=== PATIENT | male | born 1935 | race Caucasian/White ===

== ENCOUNTER 2020-06-06 11:27 | Outpatient (CLI) | payer MEDICARE, SELFPAY ==
--- NOTE | ~2020-06-06 | XR_ITS ---
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 There is degenerative spurring of the lower thoracic spine. There is severe degenerative disc disease on the right at L3-4, severe degenerative disc disease at L4-5 and L5-S1, moderate degenerative disc disease at L1-2 and L2-3, more prominent L2-3 on the right. There is very prominent degenerative change at the apophyseal joints with associated grade 1 anteroli sthesis at L5-S1. No fracture or bone destruction is detected. Fusiform distal abdominal aortic aneurysm. Extensive calcification of the abdominal aorta and iliac a rteries. 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
== END 2020-06-06 11:28 | disposition home or self-care (01) ==
PROVIDERS: PCP Family Medicine; Visit Provider Family Medicine
DX: M54.5 Low back pain (principal)
CPT/HCPCS: 72100

== ENCOUNTER 2020-06-21 09:51 | Outpatient (CLI) | payer MEDICARE, SELFPAY ==
--- NOTE | ~2020-06-21 | US_ITS ---
EXAMINATION: US aorta DATE: 06/21/2020 10:34 INDICATION: Abdominal aortic aneurysm TECHNIQUE: Grayscale, color Doppler, and pulsed Doppler images of the aorta and common iliac arteries were obtained. COMPARISON: None. FINDINGS: The proximal aorta is suboptimally visualized but measures approximately 2.2 cm AP diameter. The mid aorta measures 2.5 cm. The distal aorta measures 3.1 cm. The right common iliac artery measures 1.8. The left common iliac artery measures 1.4 cm. IMPRESSION: 1. Ectatic infrarenal abdominal aorta measuring up to 3.1 cm in maximal diameter. Reviewed, dictated and finalized at location A. IMPRESSION: 1. Ectatic infrarenal abdominal aorta measuring up to 3.1 cm in maximal diamete r.
== END 2020-06-21 09:52 | disposition home or self-care (01) ==
PROVIDERS: PCP Family Medicine; Visit Provider Family Medicine
DX: I71.4 Abdominal aortic aneurysm, without rupture (principal)
CPT/HCPCS: 76775

== ENCOUNTER 2020-06-26 06:59 | Inpatient (IN) | payer MEDICARE, SELFPAY ==
--- NOTE | ~2020-06-26 | CT_ITS ---
EXAMINATION: CT abdomen pelvis w con DATE: 06/26/2020 08:42 INDICATION: Abdominal pain TECHNIQUE: Computed tomography (CT) of the abdomen and pelvis was performed with 100 mL Omnipaque-350 intravenous contrast. Automated exposure control and iterative reconstruction technique were employe d. The dose-length product was 630.11 mGy-cm. COMPARISON: None FINDINGS: Mild bilateral dependent and basilar atelectasis. Cardiomegaly. Atherosclerotic coronary artery calci fications. Aortic valve calcification. Postoperative change of prior median sternotomy and coronary a rtery bypass grafting. Small sliding-type hiatal hernia. Gallbladder is dilated to 5.1 cm with wall thickening and trace amount of pericholecystic fluid consi stent with acute cholecystitis. The common bile duct measures up to 7-8 mm in diameter which is at th e upper limits of normal for age. No intrahepatic biliary ductal dilation. A couple cysts in the left hepatic lobe the larger measuring 3.1 cm. Additional 7 mm low-density lesion in the left hepatic lob e with more irregular margins and favor hemangioma over cyst. Multiple tiny splenic calcified calcification is consistent with old granulomatous disease. Multiple bilateral renal cysts the largest on the right measuring 1.8 cm. There is moderate colonic diverticul osis with a sigmoid predominance. There is no adjacent inflammatory change to suggest diverticulitis . Small bowel and appendix are normal. Bladder is normal. Prostatomegaly measuring 6.1 x 5.2 cm. The re is calcified atherosclerosis of the aorta and many of the other arteries. Ectatic infrarenal abdom inal aorta measuring up to 3.1 cm in maximal diameter. The degree lumbar levoscoliosis with moderate to severe spondylosis. 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 Subacute appearing fracture across the left pedicle of L5. 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 IMPRESSION: 1. Acute cholecystitis with borderline dilation of the common bile duct but without evident obstructi ng stones or mass. 2. Cardiomegaly with coronary artery disease. 3. Small sliding-type hiatal hernia. 4. Diverticulosis. 5. Prostatomegaly. 6. Chronic bilateral L5 pars interarticularis defects with nondisplaced subacute appearing fracture a cross the left pedicle of L5 and with 8 mm retrolisthesis on S1. Reviewed, dictated and finalized at location A. IMPRESSION: 1. Acute cholecystitis with borderline dilation of the common bile duct but wit hout evident obstructing stones or mass. 2. Cardiomegaly with coronary artery disease. 3. Small sliding-type hiatal hernia. 4. Diverticulosis. 5. Prostatomegaly. 6. Chronic bilateral L5 pars interarticularis defects with nondisplaced subacut e appearing fracture across the left pedicle of L5 and with 8 mm retrolisthesis on S1.
--- NOTE | ~2020-06-26 | US_ITS ---
EXAMINATION: US right upper quadrant DATE: 06/27/2020 09:44 INDICATION: Acute cholecystitis. TECHNIQUE: Multiple grayscale and Doppler ultrasound images of the abdomen were obtained. COMPARISON: CT abdomen and pelvis 06/26/2020 FINDINGS: The visualized portions of the head, body, and tail of the pancreas are normal. The liver i s normal without focal lesion. There is normal flow in main portal vein. The gallbladder is distended and contains sludge. No visible gallstones on this ultrasound, but sensitivity is decreased by bowel gas. The prior CT demonstrates a stone in the cystic duct. Gallbladder wall thickening is noted. The re was no sonographic Ruelas sign, but the patient has received pain medications. The common duct is normal and measures 5 mm. IMPRESSION: 1. Acute cholecystitis. Reviewed, dictated and finalized at location A. IMPRESSION: 1. Acute cholecystitis.
[2020-06-26 07:00] VITALS: BP 160/78; PULSE 60; RESP 20; TEMP 36.3; O2SAT 97
--- NOTE | 2020-06-26 07:10 | ECG_ITS ---
Measurements Intervals [place] Rate: 63 P: 48 MD: 188 QRS: -24 QRSD: 105 T: -24 QT: 407 QTc: 418 Interpretive Statements SINUS RHYTHM POSSIBLE LEFT ATRIAL ENLARGEMENT POSSIBLE LEFT VENTRICULAR HYPERTROPHY DELAYED PRECORDIAL R/S TRANSITION BORDERLINE T WAVE ABNORMALITY- INFERIOR LEADS BASELINE ARTIFACT- I, II, AVR, AVF BORDERLINE ECG Electronically Signed On 06-27-2020 7:09:46 CDT by Zia Vega D.O.
[2020-06-26] MEDS: SODIUM CHLORIDE 0.9% IV 1,000 ML 999 ML IV CONT (07:25)
[2020-06-26] MEDS: DICYCLOMINE HCL INJ 20 MG/2 ML VIAL IM (07:25)
[2020-06-26 07:40] LABS: Basophils Absolute Auto 0.04 K/mm3 (0.00-0.10); Basophils Percent Auto 0.4 % (0.0-1.0); Eosinophils Percent Auto 0.9 % (1.0-6.0); Hematocrit 44.3 % (37.0-46.0); Hemoglobin 14.5 g/dL (12.4-15.3); Immature Granulocyte Absolute 0.05 K/mm3 (0.00-0.00); Immature Granulocyte Percent A 0.5 % (0.0-0.0); Lymphocytes Absolute Auto 0.67 K/mm3 (1.10-4.50); Lymphocytes Percent Auto 6.3 % (18.0-42.0); Mean Corpuscular HGB Conc 32.7 g/dL (32.0-36.0); Mean Corpuscular Hemoglobin 30.3 pg (27.0-31.0); Mean Corpuscular Volume 92.7 fL (78.0-102.0); Mean Platelet Volume 8.9 fl (8.7-11.0); Monocytes Percent Auto 10.4 % (2.0-11.0); Neutrophils Absolute Auto 8.6 K/mm3 (1.7-7.2); Neutrophils Percent Auto 81.5 % (50.0-70.0); Platelet Count Result 172 K/mm3 (150-420); Red Blood Count 4.78 M/mm3 (4.70-6.10); Red Cell Distribution Width 12.4 % (11.6-14.4); White Blood Count 10.6 K/mm3 (4.8-10.8)
[2020-06-26 07:53] LABS: Partial Thromboplastin Time 31.5 SEC (22.3-31.6); Prothrombin Time 10.7 Seconds (9.64-11.0)
[2020-06-26 07:59] LABS: Alanine Aminotransferase 22 U/L (16-63); Albumin Level 3.4 g/dL (3.4-5.0); Alkaline Phosphatase 94 U/L (46-116); Anion Gap 10 mmol/L (8-16); Aspartate Amino Transferase 18 U/L (15-37); Bilirubin,Total 0.8 mg/dL (0.00-1.00); Blood Urea Nitrogen 18 mg/dL (7-18); Calcium 8.7 mg/dL (8.5-10.1); Carbon Dioxide 26 mmol/L (21-32); Chloride 101 mmol/L (98-108); Estimated CRCL calculation 44 ml/min; Estimated Glomerular Filt Rate > 60; Glucose 109 mg/dL (70-99); Lipase 64 U/L (73-393); Osmolality Calculated 286 mOsm/kg (285-295); Potassium 3.6 mmol/L (3.5-5.1); Sodium 137 mmol/L (136-145); Total Protein 6.3 g/dL (6.4-8.2)
[2020-06-26 08:01] LABS: Troponin I < 0.02 ng/mL (0.00-0.056)
--- NOTE | 2020-06-26 08:08 | ED.ABDPAIN ---
HPI - Abdominal Pain General Chief Complaint: Abdominal Pain Stated Complaint: 84 YO male w/ 1 day h.o generalizd abd pain, NOT associated w/ N/V/D. Here for eval by private vehicle. Related Data Home Medications Medication Instructions Recorded Confirmed Norvasc 5 mg PO BID 06/26/20 06/26/20 acetaminophen 325 mg BYMOUTH DAILY 06/26/20 06/26/20 atorvastatin 80 mg PO DAILY 06/26/20 06/26/20 clopidogrel 75 mg PO DAILY 06/26/20 06/26/20 irbesartan 300 mg PO DAILY 06/26/20 06/26/20 metoprolol tartrate 50 mg PO BID 06/26/20 06/26/20 nitroglycerin 1 patch TRANSDERMAL DAILY 06/26/20 06/26/20 pantoprazole 40 mg PO DAILY 06/26/20 06/26/20 tamsulosin [Flomax] 0.4 mg PO HS 06/26/20 06/26/20 tramadol 100 mg PO BID 06/26/20 06/26/20 Allergies Allergy/AdvReac Type Severity Reaction Status Date / Time aspirin Allergy Unknown Verified 06/26/20 07:34 Review of Systems Constitutional: Constitutional: Reports as per HPI and Reports no additional constitutional complaints Eyes: Eyes: Reports as per HPI and Reports no additional eye complaints ENT: Reports system reviewed and no additional complaints, except as documented and Reports as per HPI Cardiovascular: Cardiovascular: Reports as per HPI and Reports no additional cardiovascular complaints Respiratory: Respiratory: Reports as per HPI and Reports no additional respiratory complaints Gastrointestinal: Gastrointestinal: Reports as per HPI, Reports abdominal pain, Denies bloating, Denies constipation, Denies heartburn, Denies diarrhea, Denies nausea and Denies vomiting Genitourinary: Genitourinary: Reports no additional male genitourinary complaints and Reports as per HPI Musculoskeletal: Musculoskeletal: Reports no additional musculoskeletal complaints and Reports as per HPI Integumentary/Breasts: Skin/Breast: Reports system reviewed and no additional complaints, except as docu and Reports as per HPI Neurologic: Reports system reviewed and no additional complaints, except as documented and Reports as per HPI Psychiatric: Psychiatric: Reports no additional psychiatric complaints and Reports as per HPI Endocrine: Endocrine: Reports no additional endocrine complaints and Reports as per HPI Hematologic/Lymphatic: Hematologic/Lymphatic: Reports no additional hematologic/lymphatic complaints and Reports as per HPI Allergic/Immunologic: Allergic/Immunologic: Reports no additional allergic/immunologic complaints and Reports as per HPI [facility] Past Medical History Medical History (Updated 06/26/20 @ 09:52 by Jayy Santoyo MD) Aneurysm of infrarenal abdominal aorta BPH (benign prostatic hyperplasia) Diverticulosis GERD (gastroesophageal reflux disease) HLD (hyperlipidemia) HTN (hypertension) Exam Const: General: healthy appearing, no acute distress and alert Orientation/consciousness: patient oriented x3 HENMT: Head: normal to inspection Eyes: Conjunctivae: conjunctivae normal Pupils: Equal, round and reactive pupils present Neck: Neck: normal visual inspection and no lymphadenopathy Chest: Chest palpation & inspection: normal inspection of the chest Resp: Effort & Inspection: normal respiratory effort Auscultation: clear to auscultation bilaterally Cardio: Rate: regular rate Rhythm: regular rhythm GI: Inspection: non-distended GI Palp: Yes Soft to palpation, No Tenderness to palpation present (GI), No Guarding due to palpation present (GI) and No Rigid due to palpation : General: Yes no CVA tenderness Male General Exam: Yes normal external exam Testes: Testes normal Back/Spine/Pelvis: Back: no CVA tenderness Skin: General skin exam: normal color Rashes: no rashes Neuro: General: patient oriented x3, moves all extremities, no meningeal signs, no focal motor deficits and CN's II-XI intact bilaterally Cranial nerves: Yes Nystagmus not present Speech: normal speech Extrem: General: normal to inspection Psych: Appearance: grossly normal Mental Status
[2020-06-26 08:11] LABS: Add Urine Microscopic? YES; Appearance Urine Clear (Clear); Bilirubin Urine Negative (Negative); Blood Urine 1+ (Negative); Color Urine Yellow (Yellow); Glucose Urine UA Negative (Negative); Ketones Urine Negative (Negative); Leukocyte Esterase Ur Negative LEU/UL (Negative); Nitrate Urine Negative (Negative); Protein Urine Negative (Negative); pH Urine 7.5 (5.0-8.0)
[2020-06-26 08:17] LABS: Squamous Epithelial Cell Urine None seen /hpf (Few); WBC Urine None seen /hpf (0-3)
[2020-06-26 08:18] LABS: Bacteria Urine None seen /hpf; Mucus Urine None seen /lpf
[2020-06-26 08:48] LABS: D Dimer 0.64 mg/L (0.19-0.50)
[2020-06-26 09:54] VITALS: BP 161/66; PULSE 97; RESP 20; TEMP 37.1; O2SAT 98
[2020-06-26] MEDS: MORPHINE SULFATE (*CRX) 2 MG/ML INJ IV PUSH (10:10)
[2020-06-26] MEDS: ONDANSETRON INJ 4 MG/2 ML VIAL IV PUSH (10:12)
[2020-06-26 10:25] VITALS: BMI 29.5
[2020-06-26 10:30] VITALS: BP 174/70; PULSE 67; RESP 20; TEMP 36.4; O2SAT 97
--- NOTE | 2020-06-26 10:32 | PC.NURSE ---
1025 updated bedside report to RENATO Santa.
--- NOTE | 2020-06-26 10:37 | PC.NURSE ---
Admitted from ER to 227 for abdominal pain, started 1130pm while on computer, continues to have pain today, did have a BM this am, NPO at this time, oriented to room and call system
--- NOTE | 2020-06-26 11:08 | PC.NURSE ---
Given few ice chips for dry mouth, denies n/v
[2020-06-26] MEDS: ENOXAPARIN 40 MG/0.4 ML SYRINGE SUB-Q (11:28)
[2020-06-26] MEDS: DEXTROSE 5%/0.9% SOD CHL 1,000 ML 100 ML IV CONT ×2 (11:28→22:46)
--- NOTE | 2020-06-26 12:27 | PM.IMHP ---
H&P: HPI History of Present Illness Date/Time: 06/26/20 12:27 Chief complaint: abd pain Narrative: Beau Freeman is a 84 year old male who presented to the ED today with complaints abdominal pain. Patient has a past medical history of aneurysm of the infrarenal abdominal aneurysm, BPH, diverticulitis, GERD, hypertension, hyperlipidemia According to patient approximately 11:00 last night he laid down to go to sleep and noticed that he had abdominal pain. Patient noted that he took some type of medication because he thought he might have had a GI ulcer. He is unsure of the medication he took. He did note that he was unable to sleep overnight due to pain he reports is suggestive of several times with no relief. D-dimer slightly elevated patient not having any respiratory issues, no other testing needed, CT of the abdomen did indicate acute cholecystitis. The patient denies SOB, CP, palpitation, extremity numbness, lightheadedness, dizziness, constipation, diarrhea, chills, or fever. Patient continues to have left upper quadrant discomfort. Review of Systems Review of Systems: All systems reviewed & are unremarkable except as noted in HPI and below (10 point system review) [facility] Past Medical History Medical History (Updated 06/26/20 @ 09:52 by Jayy Santoyo MD) Aneurysm of infrarenal abdominal aorta BPH (benign prostatic hyperplasia) Diverticulosis GERD (gastroesophageal reflux disease) HLD (hyperlipidemia) HTN (hypertension) Social History Social History Smoking status: Former smoker Alcohol intake: never Substance use: never Substance use type: does not use Gender identity (if verbalized by the patient): Male Spiritual care concerns: No Meds Home Medications and Allergies Home Medications Medication Instructions Recorded Confirmed Type Norvasc 5 mg PO BID 06/26/20 06/26/20 History acetaminophen 325 mg BYMOUTH DAILY 06/26/20 06/26/20 History atorvastatin 80 mg PO DAILY 06/26/20 06/26/20 History clopidogrel 75 mg PO DAILY 06/26/20 06/26/20 History irbesartan 300 mg PO DAILY 06/26/20 06/26/20 History metoprolol tartrate 50 mg PO BID 06/26/20 06/26/20 History nitroglycerin 1 patch TRANSDERMAL DAILY 06/26/20 06/26/20 History pantoprazole 40 mg PO DAILY 06/26/20 06/26/20 History tamsulosin [Flomax] 0.4 mg PO HS 06/26/20 06/26/20 History tramadol 100 mg PO BID 06/26/20 06/26/20 History Allergies Allergy/AdvReac Type Severity Reaction Status Date / Time aspirin Allergy Unknown Verified 06/26/20 07:34 ibuprofen [From Motrin] Allergy Unknown Verified 06/26/20 11:14 Vital Signs Vital Signs - 24 hr 06/26/20 07:00 06/26/20 09:54 06/26/20 10:30 Temperature 97.3 F L 98.7 F 97.6 F Pulse Rate 60 97 67 Respiratory Rate 20 20 20 Blood Pressure 160/78 H 161/66 H 174/70 H Pulse Oximetry 97 98 97 Exam Narrative: Exam Narrative: GENERAL: This is a well-nourished, well-developed patient, in no apparent distress. HEAD: normocephalic, atraumatic. EYES: PERRL. Sclera clear/white. Vision is grossly intact. EARS: External ears normal, auditory canals clear and without drainage, TMs normal without perforation. Hearing grossly intact. NOSE: External nose normal with no obvious nasal discharge, nares without redness, no rhinorrhea. THROAT: Mucous membranes moist, posterior pharynx clear. NECK: Neck supple, non-tender without lymphadenopathy, masses or thyromegaly. CARDIOVASCULAR: Regular rate and rhythm without murmurs, gallops, or rubs. RESPIRATORY: Clear to auscultation. Breath sounds equal bilaterally. No wheezes, rales, or rhonchi. GASTROINTESTINAL: Left upper quadrant discomfort. Bowel sounds are active. SKIN: warm, intact with no suspicious lesions or rash, good texture and turgor. NEURO: awake, alert, and oriented to person, place and time. There were no obvious focal neurologic abnormalities. Steady gait EXTREMITIES: Normal range of motion.
[2020-06-26] MEDS: IRBESARTAN 150 MG TABLET 300 MG PO (12:52)
[2020-06-26] MEDS: ATORVASTATIN 40 MG TABLET 80 MG PO (12:53)
[2020-06-26] MEDS: CLOPIDOGREL BISULFATE 75 MG TABLET PO (12:54)
[2020-06-26] MEDS: amLODIPine BESYLATE 5 MG TABLET 10 MG PO (12:54)
[2020-06-26] MEDS: PANTOPRAZOLE 40 MG TABLET PO (12:54)
[2020-06-26] MEDS: NITROGLYCERIN 0.4 MG/HR PATCH 1 PATCH TRANSDERM (12:57)
[2020-06-26 15:26] VITALS: BP 118/46; PULSE 72; RESP 18; TEMP 37.6; O2SAT 95
--- NOTE | 2020-06-26 16:24 | PC.NURSE ---
napping, no evidence of pain, fluids infusing at this time, call light in reach of patient
[2020-06-26] MEDS: traMADol HCL (*CRX) 50 MG TABLET 100 MG PO ×2 (17:00→21:50)
[2020-06-26 17:01] VITALS: PULSE 72
[2020-06-26] MEDS: METOPROLOL TARTRATE 50 MG TAB PO (17:01)
--- NOTE | 2020-06-26 17:02 | PC.NURSE ---
Only took 50mg of tramadol due to taking morphine earlier, pain in back minimal at this time, doesn't want to over medicate
--- NOTE | 2020-06-26 18:22 | PC.NURSE ---
napping at intervals, fluids infusing, denies pain,
[2020-06-26] MEDS: TAMSULOSIN HCL 0.4 MG CAPSULE PO (21:50)
[2020-06-27] VITALS: BP 116/52; PULSE 66; RESP 16; TEMP 37.3; O2SAT 95
[2020-06-27] MEDS: HYDROcodone/acetaminophen (*CRX) 5-325 MG TABLET 1 TAB PO (05:33)
[2020-06-27 05:45] LABS: Basophils Absolute Auto 0.02 K/mm3 (0.00-0.10); Basophils Percent Auto 0.1 % (0.0-1.0); Eosinophils Absolute Auto 0.01 K/mm3 (0.02-0.50); Eosinophils Percent Auto 0.1 % (1.0-6.0); Hematocrit 38.4 % (37.0-46.0); Hemoglobin 12.3 g/dL (12.4-15.3); Immature Granulocyte Absolute 0.18 K/mm3 (0.00-0.00); Immature Granulocyte Percent A 1.3 % (0.0-0.0); Lymphocytes Absolute Auto 1.24 K/mm3 (1.10-4.50); Lymphocytes Percent Auto 8.9 % (18.0-42.0); Mean Corpuscular Hemoglobin 29.7 pg (27.0-31.0); Mean Corpuscular Volume 92.8 fL (78.0-102.0); Mean Platelet Volume 8.9 fl (8.7-11.0); Monocytes Absolute Auto 1.47 K/mm3 (0.10-0.90); Monocytes Percent Auto 10.5 % (2.0-11.0); Neutrophils Absolute Auto 11.1 K/mm3 (1.7-7.2); Neutrophils Percent Auto 79.1 % (50.0-70.0); Platelet Count Result 147 K/mm3 (150-420); Red Blood Count 4.14 M/mm3 (4.70-6.10); Red Cell Distribution Width 12.6 % (11.6-14.4)
[2020-06-27 06:04] LABS: Alanine Aminotransferase 23 U/L (16-63); Albumin Level 2.6 g/dL (3.4-5.0); Alkaline Phosphatase 73 U/L (46-116); Anion Gap 10 mmol/L (8-16); Aspartate Amino Transferase 19 U/L (15-37); Bilirubin,Total 1.8 mg/dL (0.00-1.00); Blood Urea Nitrogen 21 mg/dL (7-18); Calcium 7.9 mg/dL (8.5-10.1); Carbon Dioxide 25 mmol/L (21-32); Chloride 102 mmol/L (98-108); Estimated CRCL calculation 36 ml/min; Estimated Glomerular Filt Rate 54; Glucose 114 mg/dL (70-99); Osmolality Calculated 288 mOsm/kg (285-295); Potassium 3.7 mmol/L (3.5-5.1); Sodium 137 mmol/L (136-145); Total Protein 4.7 g/dL (6.4-8.2)
[2020-06-27 08:00] VITALS: BP 116/51; PULSE 60; RESP 16; TEMP 36.8; O2SAT 96
--- NOTE | 2020-06-27 09:05 | WPDPN ---
Progress Note: A&P Assessment and Plan (1) Aneurysm of infrarenal abdominal aorta: Code(s): I71.4 - Abdominal aortic aneurysm, without rupture Status: Acute Assessment and Plan: CT of the abdomen and pelvis indicates Ectatic infrarenal abdominal aorta measuring up to 3.1 cm in maximal diameter. Patient completed a ultrasound of the aorta 06/21/2020 findings has not changed since that diagnostic test. Aneurysm is stable. Ed doctor spoke with Dr Mayer (radiology Dr.). Technically not considered an aneurysm to it measures 3.5 cm (2) Acute cholecystitis: Code(s): K81.0 - Acute cholecystitis Status: Acute Assessment and Plan: CT of the abdomen indicates Acute cholecystitis with borderline dilation of the common bile duct but without evident obstructing stones or mass. Continue n.p.o. patient can tolerate extra Continue Zosyn day 2 Continue pain medication with antiemetics Continue to IV hydrate patient (3) BPH (benign prostatic hyperplasia): Code(s): N40.0 - Benign prostatic hyperplasia without lower urinary tract symptoms Status: Acute Assessment and Plan: Continue Flomax (4) GERD (gastroesophageal reflux disease): Code(s): K21.9 - Gastro-esophageal reflux disease without esophagitis Status: Acute Assessment and Plan: Continue pantoprazole (5) HTN (hypertension): Code(s): I10 - Essential (primary) hypertension Status: Acute Assessment and Plan: Blood pressure stable Continue Norvasc 10 mg daily and metoprolol 50 mg twice daily, irbesartan 300 mg daily Vital signs as ordered Will adjust medication as needed (6) HLD (hyperlipidemia): Code(s): E78.5 - Hyperlipidemia, unspecified Status: Acute Assessment and Plan: Continue statins Review of Systems Review of Systems: All systems reviewed & are unremarkable except as noted in HPI and below (10 point system review) Exam Narrative: Exam Narrative: GENERAL: This is a well-nourished, well-developed patient, in no apparent distress. HEAD: normocephalic, atraumatic. EYES: PERRL. Sclera clear/white. Vision is grossly intact. EARS: External ears normal, auditory canals clear and without drainage, TMs normal without perforation. Hearing grossly intact. NOSE: External nose normal with no obvious nasal discharge, nares without redness, no rhinorrhea. THROAT: Mucous membranes moist, posterior pharynx clear. NECK: Neck supple, non-tender without lymphadenopathy, masses or thyromegaly. CARDIOVASCULAR: Regular rate and rhythm without murmurs, gallops, or rubs. RESPIRATORY: Clear to auscultation. Breath sounds equal bilaterally. No wheezes, rales, or rhonchi. GASTROINTESTINAL: Left upper quadrant discomfort. Bowel sounds are active. SKIN: warm, intact with no suspicious lesions or rash, good texture and turgor. NEURO: awake, alert, and oriented to person, place and time. There were no obvious focal neurologic abnormalities. Steady gait EXTREMITIES: Normal range of motion. No edema. No calf tenderness. Negative Homans sign bilaterally. BACK: Nontender without deformity or crepitance. No flank tenderness. Objective Data Vital Signs Vital Signs: Vital Signs - 24 hr 06/26/20 09:54 06/26/20 10:30 06/26/20 15:26 Temperature 98.7 F 97.6 F 99.6 F Pulse Rate 97 67 72 Respiratory Rate 20 20 18 Blood Pressure 161/66 H 174/70 H 118/46 L Pulse Oximetry 98 97 95 06/26/20 17:01 06/27/20 00:00 06/27/20 08:00 Temperature 99.1 F 98.2 F Pulse Rate 72 66 60 Respiratory Rate 16 16 Blood Pressure 116/52 L 116/51 L Pulse Oximetry 95 96 Intake/Output Intake/Output: Intake & Output 06/24/20 06/25/20 06/26/20 06/27/20 23:59 23:59 23:59 23:59 Intake Total 2210 100 Output Total 600 300 Balance 1610 -200 Meds/Results Medications: Active Medications Generic Name Dose Route Start Last Admin Trade Name Freq PRN Reason Stop Dose Admin Acetam
[2020-06-27 09:26] VITALS: PULSE 62
[2020-06-27] MEDS: traMADol HCL (*CRX) 50 MG TABLET 100 MG PO (09:26)
[2020-06-27] MEDS: CLOPIDOGREL BISULFATE 75 MG TABLET PO (09:26)
[2020-06-27] MEDS: IRBESARTAN 150 MG TABLET 300 MG PO (09:26)
[2020-06-27] MEDS: NITROGLYCERIN 0.4 MG/HR PATCH 1 PATCH TRANSDERM (09:26)
[2020-06-27] MEDS: ENOXAPARIN 40 MG/0.4 ML SYRINGE SUB-Q (09:26)
[2020-06-27] MEDS: METOPROLOL TARTRATE 50 MG TAB PO (09:26)
[2020-06-27] MEDS: ATORVASTATIN 40 MG TABLET 80 MG PO (09:26)
[2020-06-27] MEDS: PANTOPRAZOLE 40 MG TABLET PO (09:27)
[2020-06-27] MEDS: amLODIPine BESYLATE 5 MG TABLET 10 MG PO (09:27)
[2020-06-27] MEDS: DEXTROSE 5%/0.9% SOD CHL 1,000 ML 100 ML IV CONT (09:43)
--- NOTE | 2020-06-27 11:52 | PM.DS ---
DS: Admitting Diagnosis Admitting Diagnosis Admitting Diagnosis: ACUTE CHOLECYSTITIS DS: Discharge Diagnosis Discharge Diagnosis (1) Aneurysm of infrarenal abdominal aorta: Code(s): I71.4 - Abdominal aortic aneurysm, without rupture Status: Acute Assessment and Plan: CT of the abdomen and pelvis indicates Ectatic infrarenal abdominal aorta measuring up to 3.1 cm in maximal diameter. Patient completed a ultrasound of the aorta 06/21/2020 findings has not changed since that diagnostic test. Aneurysm is stable. Ed doctor spoke with Dr Mayer (radiology Dr.). Technically not considered an aneurysm to it measures 3.5 cm (2) Acute cholecystitis: Code(s): K81.0 - Acute cholecystitis Status: Acute Assessment and Plan: CT of the abdomen indicates Acute cholecystitis with borderline dilation of the common bile duct but without evident obstructing stones or mass. Continue n.p.o. patient can tolerate extra Patient was discharged on Augmentin Continue pain medication with antiemetics Patient will need to follow-up with primary care physician with ultrasound results (3) BPH (benign prostatic hyperplasia): Code(s): N40.0 - Benign prostatic hyperplasia without lower urinary tract symptoms Status: Acute Assessment and Plan: Continue Flomax (4) GERD (gastroesophageal reflux disease): Code(s): K21.9 - Gastro-esophageal reflux disease without esophagitis Status: Acute Assessment and Plan: Continue pantoprazole (5) HTN (hypertension): Code(s): I10 - Essential (primary) hypertension Status: Acute Assessment and Plan: Blood pressure stable Continue Norvasc 10 mg daily and metoprolol 50 mg twice daily, irbesartan 300 mg daily (6) HLD (hyperlipidemia): Code(s): E78.5 - Hyperlipidemia, unspecified Status: Acute Assessment and Plan: Continue statins DS: Summary Time Spent with Patient Time attestation: Total time spent providing and/or coordinating discharge services: Exam Narrative: Exam Narrative: GENERAL: This is a well-nourished, well-developed patient, in no apparent distress. HEAD: normocephalic, atraumatic. EYES: PERRL. Sclera clear/white. Vision is grossly intact. EARS: External ears normal, auditory canals clear and without drainage, TMs normal without perforation. Hearing grossly intact. NOSE: External nose normal with no obvious nasal discharge, nares without redness, no rhinorrhea. THROAT: Mucous membranes moist, posterior pharynx clear. NECK: Neck supple, non-tender without lymphadenopathy, masses or thyromegaly. CARDIOVASCULAR: Regular rate and rhythm without murmurs, gallops, or rubs. RESPIRATORY: Clear to auscultation. Breath sounds equal bilaterally. No wheezes, rales, or rhonchi. GASTROINTESTINAL: Left upper quadrant discomfort. Bowel sounds are active. SKIN: warm, intact with no suspicious lesions or rash, good texture and turgor. NEURO: awake, alert, and oriented to person, place and time. There were no obvious focal neurologic abnormalities. Steady gait EXTREMITIES: Normal range of motion. No edema. No calf tenderness. Negative Homans sign bilaterally. BACK: Nontender without deformity or crepitance. No flank tenderness. DS: Data Data Completed and Pending Labs on day of discharge: Labs from last 24 hours 06/27/20 06/27/20 05:34 05:34 WBC 14.0 H RBC 4.14 L Hgb 12.3 L Hct 38.4 MCV 92.8 MCH 29.7 MCHC 32.0 RDW 12.6 Plt Count 147 L MPV 8.9 Immature Gran % (Auto) 1.3 H Neut % (Auto) 79.1 H Lymph % (Auto) 8.9 L Spencer % (Auto) 10.5 Eos % (Auto) 0.1 L Baso % (Auto) 0.1 Lymph # (Auto) 1.24 Spencer # (Auto) 1.47 H Eos # (Auto) 0.01 L Baso # (Auto) 0.02 Abs Immat Gran (auto) 0.18 H Absolute Neuts (auto) 11.1 H Absolute Nucleated RBC 0.00 Nucleated RBC % 0.0 Sodium 137 Potassium 3.7 Chloride 102 Carbon Dioxide 25 Anion Gap
--- NOTE | 2020-07-01 13:39 | PC.NURSE ---
Pt states he understood all of his instructions and everything was good.
== END 2020-06-27 11:45 | disposition home or self-care (01) | DRG 446 ==
LOC: CHSED 09:52 → CHS2ND 09:59
PROVIDERS: Admitting Provider Family Medicine; Emergency Provider Family Medicine; PCP Family Medicine; Visit Provider Family Medicine
DX: K81.0 Acute cholecystitis (principal); E78.5 Hyperlipidemia, unspecified; I10 Essential (primary) hypertension; I71.4 Abdominal aortic aneurysm, without rupture; K57.30 Diverticulosis of large intestine without perforation or abscess without bleeding; K21.9 Gastro-esophageal reflux disease without esophagitis; N40.0 Benign prostatic hyperplasia without lower urinary tract symptoms
CPT/HCPCS: 36415; 74177; 76705; 80053; 81001; 83690; 84484; 85025; 85380; 85610; 85730; 93005; 96372; 99283; 99285; A9270; J0500; J1650; J2270; J2405; J2543; J7030; J7042; Q9965

== ENCOUNTER 2020-08-11 10:44 | Outpatient (CLI) | payer MEDICARE, SELFPAY ==
[2020-08-12 12:14] LABS: SARS-CoV-2 RNA PCR Negative
== END 2020-08-11 10:45 | disposition home or self-care (01) ==
LOC: CHSLAB 10:47
PROVIDERS: PCP Family Medicine; Visit Provider Family Medicine
DX: Z20.828 Contact with and (suspected) exposure to other viral communicable diseases (principal)
CPT/HCPCS: 87635; C9803; U0003

== ENCOUNTER 2020-10-27 12:04 | Outpatient (CLI) | payer MEDICARE, SELFPAY ==
--- NOTE | ~2020-10-27 | XR_ITS ---
XR lumbar spine 2-3V DATE: 10/27/2020 12:38 INDICATION: Low back pain for 5 to 10 years TECHNIQUE: AP, lateral, coned lateral lumbosacral views COMPARISON: 06/06/2020 lumbar spine FINDINGS: There is rotatory levoscoliosis of the lumbar spine. There is degenerative disc disease throughout the lumbar spine, particularly severe at L3-4, L4-5 and L5-S1. Upper grade 1 anterolisthesis at L5-S1. No apparent fracture or bone destruction. The sacroiliac joints are intact. There is extensive calcification of the abdominal aorta. Fusiform distal abdominal aortic aneurysm. IMPRESSION: Rotatory levoscoliosis and multilevel degenerative disc disease, particularly at L3-4 thr ough L5-S1 Upper grade 1 anterolisthesis at L5-S1 Abdominal aortic aneurysm Little interval change since Reviewed, dictated and finalized at location A. [employer] IMPRESSION: Rotatory levoscoliosis and multilevel degenerative disc disease, pa rticularly at L3-4 through L5-S1 Upper grade 1 anterolisthesis at L5-S1 Abdominal aortic aneurysm Little interval change since
== END 2020-10-27 12:05 | disposition home or self-care (01) ==
LOC: CHSIMG 12:05
PROVIDERS: PCP Family Medicine; Visit Provider Family Medicine
DX: M54.5 Low back pain (principal)
CPT/HCPCS: 72100

== ENCOUNTER 2020-11-01 10:01 | Outpatient (CLI) | payer MEDICARE, SELFPAY ==
--- NOTE | ~2020-11-01 | US_ITS ---
EXAMINATION: US aorta EXAM DATE: 11/01/2020 12:35 INDICATION: Abdominal aortic aneurysm. TECHNIQUE: Multiple grayscale and Doppler images of the aorta were obtained (by a technologist who pe rformed the scan) and subsequently reviewed. Comparison is made to prior examination from 06/21/2020. FINDINGS: Aorta measures 2.8 cm proximally, 2.5 cm mid aspect, and 3.3 cm distally (AP dimensions). Dimensions at lower abdominal aortic aneurysm 3.3 x 3.8 cm (previously 3.1 x 3.7 cm). Left iliac artery measures 1.6 cm, the right measuring 1.4 cm in AP dimensions. IMPRESSION: Modest interval increase in measurements of distal abdominal aortic aneurysm up to 3.8 cm transverse dimension. Reviewed, dictated and finalized at location A. [employer]
== END 2020-11-01 10:02 | disposition home or self-care (01) ==
PROVIDERS: PCP Family Medicine; Visit Provider Family Medicine
DX: I71.4 Abdominal aortic aneurysm, without rupture (principal)
CPT/HCPCS: 76775

== ENCOUNTER 2021-04-26 12:17 | Outpatient (CLI) | payer MEDICARE, SELFPAY ==
--- NOTE | ~2021-04-26 | XR_ITS ---
EXAMINATION: XR knee RT 3V DATE: 04/26/2021 12:38 INDICATION: Right knee pain. TECHNIQUE: 3 views of right knee were obtained. COMPARISON: None. FINDINGS: Bone alignment is normal. No fracture. There is mild osteoarthritis of medial and patellofe moral compartments characterized by tiny marginal osteophytes. No joint space narrowing. There is cho ndrocalcinosis of the menisci. No knee joint effusion. IMPRESSION: 1. Mild right knee osteoarthritis. Reviewed, dictated and finalized at location A.
== END 2021-04-26 12:18 | disposition home or self-care (01) ==
LOC: CHSLAB 12:19
PROVIDERS: PCP Family Medicine; Visit Provider Family Medicine
DX: M25.561 Pain in right knee (principal)
CPT/HCPCS: 73562

== ENCOUNTER 2021-05-23 09:28 | Emergency (ER) | payer MEDICARE, SELFPAY ==
--- NOTE | ~2021-05-23 | CT_ITS ---
EXAMINATION: CT abdomen pelvis w con EXAM DATE: 05/23/2021 11:11 INDICATION: Black stools, diarrhea. Diarrhea, generalized abdominal pain. TECHNIQUE: Spiral CT of the abdomen and pelvis was performed following intravenous injection of 100 m L Omnipaque 350. Axial, coronal and sagittal images of the abdomen and pelvis were reviewed. The do se-length product (DLP) for this examination was 559.60 mGy-cm. The exposure was tailored according to patient size (auto mA exposure control), and iterative reconstruction (ASIR) was used as additiona l dose reduction technique. Comparison is made to prior examination from 06/26/2020. FINDINGS: The liver, spleen, adrenal glands and pancreas are unremarkable. Gallbladder is moderately distended with indistinct wall, possible cholecystitis. Please note that there was a similar appeara nce to the gallbladder on prior study last year. Common bile duct appears normal in diameter. No calc ified cholelithiasis. Portal and splenic veins are patent. Kidneys enhance symmetrically. There is no hydronephrosis. Small renal hypodensities, some too small to characterize. Statistically most lik jose raul cysts. There is moderate prostatomegaly, prostate measuring 6 cm in diameter.. The bladder is un remarkable. There is no retroperitoneal or pelvic lymphadenopathy. Moderate scattered arterioscler otic disease. There is abdominal aortoiliac ectasia. The distal aspect of the abdominal aorta is mild ly aneurysmal at 3.4 cm. The appendix is normal. There is moderate scattered colonic diverticulosis. There is no adjacent inf lammatory change to suggest diverticulitis. The stomach and small bowel are unremarkable. There is e xpected amount of colonic stool. No free intraperitoneal gas. There is cardiomegaly. Sternotomy w ires. Some basilar intralobular septal thickening, most consistent with mild pulmonary edema. No bas ilar consolidation. Moderate lumbar levoscoliosis. Moderate to severe lumbar disc disease. There are no osteoblastic or osteolytic lesions identified. IMPRESSION: 1. Moderately distended gallbladder with indistinct wall, could indicate acute cholecystitis but the re was similar appearance last year. Correlate with that hospital course. 2. Moderate scattered colonic diverticulosis. 3. Aortoiliac ectasia. 4. Moderate prostatomegaly. 5. Cardiomegaly, probable mild pulmonary edema. Reviewed, dictated and finalized at location B. IMPRESSION: 1. Moderately distended gallbladder with indistinct wall, could indicate acute cholecystitis but there was similar appearance last year. Correlate with [facility] t hospital course. 2. Moderate scattered colonic diverticulosis. 3. Aortoiliac ectasia. 4. Moderate prostatomegaly. 5. Cardiomegaly, probable mild pulmonary edema.
[2021-05-23 09:35] VITALS: BP 126/53; PULSE 71; RESP 16; TEMP 36.2; O2SAT 94
--- NOTE | 2021-05-23 10:06 | ECG_ITS ---
Measurements Intervals [place] Rate: 74 P: 35 [place]: 116 QRS: -31 QRSD: 105 T: -25 QT: 382 QTc: 424 Interpretive Statements SINUS RHYTHM WITH SHORT [place] INTERVAL VENTRICULAR PREMATURE COMPLEX LEFT AXIS DEVIATION VOLTAGE CRITERIA FOR LVH BORDERLINE R WAVE PROGRESSION, ANTERIOR LEADS BORDERLINE ST-T WAVE ABNORMALITY- INFERIOR LEADS BASELINE ARTIFACT- I, II, III BORDERLINE ECG Electronically Signed On 05-23-2021 11:01:24 CDT by Zia Vega D.O.
[2021-05-23] MEDS: SODIUM CHLORIDE 0.9% IV 1,000 ML 150 ML IV CONT (10:26)
[2021-05-23] MEDS: ONDANSETRON INJ 4 MG/2 ML VIAL IV PUSH (10:26)
[2021-05-23] MEDS: PANTOPRAZOLE SODIUM IV 40 MG VIAL IV PUSH (10:26)
[2021-05-23 10:31] LABS: Basophils Absolute Auto 0.02 K/mm3 (0.00-0.10); Basophils Percent Auto 0.1 % (0.0-1.0); Hematocrit 42.6 % (37.0-46.0); Hemoglobin 13.9 g/dL (12.4-15.3); Immature Granulocyte Absolute 0.11 K/mm3 (0.00-0.00); Immature Granulocyte Percent A 0.7 % (0.0-0.0); Lymphocytes Absolute Auto 0.15 K/mm3 (1.10-4.50); Lymphocytes Percent Auto 0.9 % (18.0-42.0); Mean Corpuscular HGB Conc 32.6 g/dL (32.0-36.0); Mean Corpuscular Hemoglobin 28.9 pg (27.0-31.0); Mean Corpuscular Volume 88.6 fL (78.0-102.0); Mean Platelet Volume 9.4 fl (8.7-11.0); Monocytes Absolute Auto 1.45 K/mm3 (0.10-0.90); Monocytes Percent Auto 9.1 % (2.0-11.0); Neutrophils Absolute Auto 14.2 K/mm3 (1.7-7.2); Neutrophils Percent Auto 89.2 % (50.0-70.0); Platelet Count Result 152 K/mm3 (150-420); Red Blood Count 4.81 M/mm3 (4.70-6.10); Red Cell Distribution Width 13.6 % (11.6-14.4); White Blood Count 15.9 K/mm3 (4.8-10.8)
[2021-05-23 10:43] LABS: INR 1.2; Partial Thromboplastin Time 29.2 SEC (23.90-30.70); Prothrombin Time 12.2 Seconds (9.50-12.10)
[2021-05-23 10:47] LABS: Alanine Aminotransferase 130 U/L (16-63); Albumin Level 3.1 g/dL (3.4-5.0); Alkaline Phosphatase 262 U/L (46-116); Anion Gap 12 mmol/L (8-16); Aspartate Amino Transferase 131 U/L (15-37); Bilirubin,Total 6.8 mg/dL (0.00-1.00); Blood Urea Nitrogen 22 mg/dL (7-18); Calcium 8.4 mg/dL (8.5-10.1); Carbon Dioxide 25 mmol/L (21-32); Chloride 102 mmol/L (98-108); Estimated CRCL calculation 36 ml/min; Estimated Glomerular Filt Rate 54; Glucose 107 mg/dL (70-99); Lipase 68 U/L (73-393); Osmolality Calculated 291 mOsm/kg (285-295); Potassium 3.6 mmol/L (3.5-5.1); Sodium 139 mmol/L (136-145); Total Protein 5.8 g/dL (6.4-8.2)
[2021-05-23 10:48] LABS: Troponin I 123.2 ng/L (0.00-60.4)
[2021-05-23 10:50] LABS: Lactic Acid Reflex 1.8 mmol/L (0.4-2.0)
--- NOTE | 2021-05-23 11:05 | ED.ABDPAIN ---
HPI - Abdominal Pain General Chief Complaint: Abdominal Pain Stated Complaint: ABD PAIN BLOOD IN STOOL Time Seen by Provider: 05/23/21 09:32 Source: patient and family Mode of arrival: ambulatory Limitations: no limitations History of Present Illness MD elicited complaint: abdominal pain and other (black stools and diarrhea x 12 hrs. no fever or vomiting) Pertinent past history: gastritis Onset (ago): hour(s) (12) Pain Consistency: colicky Location: epigastric, RLQ and LLQ Severity: mild Pain scale (0-10): 3 Quality: cramping, aching and dull Migration to: no migration Exacerbating factors: nothing Relieving factors: nothing Associated symptoms: nausea, diarrhea and chills Related Data Home Medications Medication Instructions Recorded Confirmed atorvastatin 80 mg PO DAILY 06/26/20 05/23/21 clopidogrel 75 mg PO DAILY 06/26/20 05/23/21 irbesartan 300 mg PO DAILY 06/26/20 05/23/21 metoprolol tartrate 50 mg PO BID 06/26/20 05/23/21 nitroglycerin 1 patch TRANSDERMAL DAILY 06/26/20 05/23/21 pantoprazole 40 mg PO DAILY 06/26/20 05/23/21 tamsulosin [Flomax] 0.4 mg PO HS 06/26/20 05/23/21 tramadol 100 mg PO BID 06/26/20 05/23/21 amlodipine 5 mg PO DAILY 05/23/21 05/23/21 nitroglycerin 0.4 mg SUBLINGUAL DIRECTED 05/23/21 05/23/21 Allergies Allergy/AdvReac Type Severity Reaction Status Date / Time aspirin Allergy Unknown Verified 06/26/20 07:34 ibuprofen [From Motrin] Allergy Unknown Verified 06/26/20 11:14 Review of Systems Review of Systems: All systems reviewed & are unremarkable except as noted in HPI and below Gastrointestinal: Gastrointestinal: Reports abdominal pain and Reports nausea PMFSH Past Medical History Medical History Aneurysm of infrarenal abdominal aorta BPH (benign prostatic hyperplasia) Diverticulosis GERD (gastroesophageal reflux disease) HLD (hyperlipidemia) HTN (hypertension) Social History Social History Smoking status: Former smoker Alcohol intake: never Substance use: never Substance use type: does not use Gender identity (if verbalized by the patient): Male Spiritual care concerns: No Exam Const: General: no acute distress Nutritional Appearance: well nourished Orientation/consciousness: patient oriented x3 HENMT: Head: normal to inspection Ears: external ears normal and TM's normal bilaterally General nose exam: Normal external nose present and Normal nares present Mouth: Yes moist mucous membranes Throat: posterior oropharynx normal Eyes: Conjunctivae: conjunctivae normal Pupils: Equal, round and reactive pupils present EOM: EOMs intact bilaterally Neck: Neck: normal visual inspection and no lymphadenopathy Chest: Chest palpation & inspection: normal inspection of the chest Resp: Effort & Inspection: normal respiratory effort Auscultation: clear to auscultation bilaterally Cardio: Rate: regular rate Rhythm: regular rhythm GI: GI Palp: Yes Soft to palpation and Yes Tenderness to palpation present (GI) (minimal epigastric) Percussion: Yes normal to percussion Auscultation: normal bowel sounds : General: Yes bladder normal to palpation and Yes no CVA tenderness Testes: Testes normal Back/Spine/Pelvis: Back: no CVA tenderness Skin: General skin exam: normal color Rashes: no rashes Neuro: General: patient oriented x3, moves all extremities, no meningeal signs, no focal motor deficits and CN's II-XI intact bilaterally Extrem: General: normal to inspection Psych: Appearance: grossly normal and well kempt Mental Status: mental status grossly normal Attitude: cooperative Thought content: Yes Normal thought content present Course Course Emergency Course: pt was stable in the ED. no acute GI loss. no acute chest pain or SOB. Pt wishes to go home. 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
[2021-05-23 11:39] LABS: SARS-CoV-2 Ag Negative (Negative)
[2021-05-23 12:18] VITALS: BP 114/51; PULSE 62; RESP 16; O2SAT 95
[2021-05-23 13:01] LABS: Troponin I 116.9 ng/L (0.00-60.4)
[2021-05-23 13:21] VITALS: BP 128/55; PULSE 55; RESP 18; O2SAT 96
--- NOTE | 2021-05-23 13:36 | PC.NURSE ---
CALL PLACED TO REACH P[facility] [employer] AND REEL TENDER AT [facility],, DR WALL.
--- NOTE | 2021-05-23 14:02 | PC.NURSE ---
dr coffman speaking with dr keller venipuncturist.
[2021-05-23 14:51] VITALS: BP 125/55; PULSE 56; O2SAT 96
[2021-05-23 15:09] LABS: Appearance Urine Clear (Clear); Bilirubin Urine 3+ (Negative); Blood Urine 2+ (Negative); Glucose Urine UA Negative (Negative); Ketones Urine Negative (Negative); Leukocyte Esterase Ur Negative (Negative); Nitrate Urine Negative (Negative); Protein Urine 2+ (Negative); Specific Grav Ur <= 1.005 (1.010-1.020); pH Urine 6.5 (5.0-8.0)
[2021-05-23 15:10] LABS: Occult Blood Negative (Negative)
[2021-05-23 15:15] LABS: Add Urine Microscopic? YES; Bacteria Urine Trace /hpf; Color Urine Dark Orange (Yellow); Squamous Epithelial Cell Urine Rare /hpf (Few); WBC Urine None seen /hpf (0-3)
[2021-05-23 16:05] VITALS: BP 135/56; PULSE 57; RESP 16; O2SAT 98
== END 2021-05-23 16:55 | disposition home or self-care (01) ==
PROVIDERS: Emergency Provider Emergency Medicine; PCP Family Medicine
DX: K52.9 Noninfective gastroenteritis and colitis, unspecified (principal); R79.9 Abnormal finding of blood chemistry, unspecified; Z20.822 Contact with and (suspected) exposure to COVID-19; K21.9 Gastro-esophageal reflux disease without esophagitis; E78.5 Hyperlipidemia, unspecified; I10 Essential (primary) hypertension; Z87.891 Personal history of nicotine dependence
CPT/HCPCS: 36415; 74177; 80053; 81001; 82272; 83605; 83690; 84484; 85025; 85610; 85730; 87040; 87426; 93005; 96361; 96365; 96375; 99283; 99284; C9113; C9803; J0696; J2405; J7030; Q9967

== ENCOUNTER 2021-05-26 14:47 | Outpatient (CLI) | payer MEDICARE, SELFPAY ==
--- NOTE | ~2021-05-26 | US_ITS ---
EXAMINATION: US right upper quadrant EXAM DATE: 05/26/2021 15:34 INDICATION: Jaundice. TECHNIQUE: Multiple grayscale and Doppler images of the abdomen right upper quadrant were obtained (b y a technologist who performed the scan) and subsequently reviewed. Comparison is made to prior exami nation from 06/27/2020. FINDINGS: The pancreatic head and body are normal in appearance. The pancreatic tail is not visualized. The l iver has normal echogenicity and contour. Couple of contiguous left liver lobe lesions inferiorly me asuring up to 3.1 cm. Possible hyperechoic 8 mm liver lesion which is nonspecific. There is no evide nce of intrahepatic biliary duct dilation. Portal venous flow was seen in the hepatopedal, normal di rection and has normal Doppler waveform. No right-sided hydronephrosis. Common bile duct measures 7 mm, which is normal. Gallbladder is moderately distended with thickened w all up to about 5 mm, for amount of distention. Multiple peripherally calcified gallstones identified . Technologist performing exam reports patient did not demonstrate sonographic Ruelas's sign. Hernán e note that this sign is less reliable in patients who have received pain medication. IMPRESSION: 1. Cholelithiasis and moderately thickened gallbladder wall. Nonspecific without sonographic Ruelas sign demonstrated. Acute or chronic cholecystitis not excludable. Please note there was similar appea dhaval on ultrasound last year. 2. Subcentimeter nonspecific liver hyperechoic focus probably not clinically significant. Reviewed, dictated and finalized at location B. IMPRESSION: 1. Cholelithiasis and moderately thickened gallbladder wall. Nonspecific witho ut sonographic Ruelas sign demonstrated. Acute or chronic cholecystitis not exc ludable. Please note there was similar appearance on ultrasound last year. 2. Subcentimeter nonspecific liver hyperechoic focus probably not clinically s ignificant.
[2021-05-26 15:08] LABS: Hematocrit 41.3 % (37.0-46.0); Hemoglobin 13.4 g/dL (12.4-15.3); Immature Platelet Fraction Pct 1.6 % (1.0-7.0); Mean Corpuscular HGB Conc 32.4 g/dL (32.0-36.0); Mean Corpuscular Hemoglobin 28.6 pg (27.0-31.0); Mean Corpuscular Volume 88.2 fL (78.0-102.0); Mean Platelet Volume 9.8 fl (8.7-11.0); Platelet Count Result 129 K/mm3 (150-420); Red Blood Count 4.68 M/mm3 (4.70-6.10); Red Cell Distribution Width 13.8 % (11.6-14.4); White Blood Count 5.7 K/mm3 (4.8-10.8)
[2021-05-26 15:28] LABS: Band Neutrophils Percent 1 % (0-6); Basophils Absolute Manual 0.05 K/mm3 (0-0.1); Basophils Percent Manual 1 % (0-1); Eosinophils Absolute Manual 0.22 K/mm3 (0.02-0.5); Eosinophils Percent Manual 4 % (1-6); Lymphocytes Absolute Manual 0.57 K/mm3 (1.1-4.5); Lymphocytes Percent Manual 10 % (18-44); Monocytes Absolute Manual 1.14 K/mm3 (0.1-0.90); Monocytes Percent Manual 20 % (3-9); Neutrophils Percent Manual 64 % (46-73); Total Cells Counted 100
[2021-05-26 15:29] LABS: Alanine Aminotransferase 137 U/L (16-63); Albumin Level 2.8 g/dL (3.4-5.0); Alkaline Phosphatase 273 U/L (46-116); Amylase 32 U/L (25-115); Anion Gap 6 mmol/L (8-16); Aspartate Amino Transferase 104 U/L (15-37); Bilirubin,Total 2.9 mg/dL (0.00-1.00); Blood Urea Nitrogen 13 mg/dL (7-18); Calcium 8.7 mg/dL (8.5-10.1); Carbon Dioxide 29 mmol/L (21-32); Chloride 102 mmol/L (98-108); Creatine Kinase 51 U/L (39-308); Estimated Glomerular Filt Rate > 60; Glucose 87 mg/dL (70-99); Lipase 342 U/L (73-393); Osmolality Calculated 283 mOsm/kg (285-295); Platelet Estimate Adequate (Adequate); Potassium 4.2 mmol/L (3.5-5.1); Prostate Specific Antigen 2.5 ng/mL (< OR = 4.0); Sodium 137 mmol/L (136-145); Total Protein 5.8 g/dL (6.4-8.2)
[2021-05-26 15:43] LABS: Troponin I 21.7 ng/L (0.00-60.4)
== END 2021-05-26 14:48 | disposition home or self-care (01) ==
LOC: CHSIMG 14:49
PROVIDERS: PCP Family Medicine; Visit Provider Family Medicine
DX: R17 Unspecified jaundice (principal); R74.8 Abnormal levels of other serum enzymes; Z12.5 Encounter for screening for malignant neoplasm of prostate
CPT/HCPCS: 36415; 76705; 80053; 82150; 82550; 82553; 83690; 84153; 84484; 85025; 85055; 85060; G0103

== ENCOUNTER 2021-06-23 07:03 | Outpatient (CLI) | payer MEDICARE, SELFPAY ==
[2021-06-23 07:36] LABS: INR 1.1; Prothrombin Time 11.4 Seconds (9.50-12.10)
[2021-06-23 08:56] LABS: Anion Gap 10 mmol/L (8-16); Blood Urea Nitrogen 14 mg/dL (7-18); Carbon Dioxide 30 mmol/L (21-32); Chloride 103 mmol/L (98-108); Estimated Glomerular Filt Rate > 60; Glucose 83 mg/dL (70-99); Osmolality Calculated 295 mOsm/kg (285-295); Potassium 4.3 mmol/L (3.5-5.1); Sodium 143 mmol/L (136-145)
[2021-06-23 15:33] LABS: Hematocrit 47.6 % (37.0-46.0); Hemoglobin 15.2 g/dL (12.4-15.3); Mean Corpuscular HGB Conc 31.9 g/dL (32.0-36.0); Mean Corpuscular Hemoglobin 28.8 pg (27.0-31.0); Mean Corpuscular Volume 90.3 fL (78.0-102.0); Mean Platelet Volume 10.1 fl (8.7-11.0); Platelet Count Result 186 K/mm3 (150-420); Red Blood Count 5.27 M/mm3 (4.70-6.10); Red Cell Distribution Width 14.8 % (11.6-14.4); White Blood Count 5.7 K/mm3 (4.8-10.8)
[2021-06-23 16:02] LABS: Band Neutrophils Percent 0 % (0-6); Basophils Percent Manual 0 % (0-1); Eosinophils Absolute Manual 0.45 K/mm3 (0.02-0.5); Eosinophils Percent Manual 8 % (1-6); Lymphocytes Absolute Manual 1.02 K/mm3 (1.1-4.5); Lymphocytes Percent Manual 18 % (18-44); Monocytes Absolute Manual 0.96 K/mm3 (0.1-0.90); Monocytes Percent Manual 17 % (3-9); Neutrophils Absolute Manual 3.24 K/mm3 (1.3-6.7); Neutrophils Percent Manual 57 % (46-73); Platelet Estimate Adequate (Adequate); Total Cells Counted 100
== END 2021-06-23 07:04 | disposition home or self-care (01) ==
LOC: CHSLAB 07:09
PROVIDERS: PCP Family Medicine
DX: I25.10 Atherosclerotic heart disease of native coronary artery without angina pectoris (principal); E78.2 Mixed hyperlipidemia; I10 Essential (primary) hypertension; Z95.1 Presence of aortocoronary bypass graft; Z95.5 Presence of coronary angioplasty implant and graft
CPT/HCPCS: 36415; 80048; 85025; 85610

== ENCOUNTER 2021-07-26 10:26 | Outpatient (CLI) | payer MEDICARE, SELFPAY ==
[2021-07-26 11:09] LABS: Alanine Aminotransferase 20 U/L (4-50); Alkaline Phosphatase 108 U/L (38-126); Amylase 62 U/L (30-110); Anion Gap 6 mmol/L (8-16); Aspartate Amino Transferase 30 U/L (17-59); Basophils Absolute Auto 0.1 K/mm3 (0.0-0.1); Basophils Percent Auto 1.1 % (0.2-1.2); Bilirubin,Total 0.7 mg/dL (0.2-1.3); Blood Urea Nitrogen 17 mg/dL (9-20); Calcium 9.1 mg/dL (8.4-10.2); Carbon Dioxide 28 mmol/L (22-30); Chloride 101 mmol/L (98-107); Eosinophils Absolute Auto 0.2 K/mm3 (0-0.3); Eosinophils Percent Auto 3.4 % (0-4.4); Estimated Glomerular Filt Rate > 60; Glucose 102 mg/dL (65-110); Hematocrit 42.6 % (42.0-52.0); Hemoglobin 14.2 g/dL (14.0-18.0); Immature Granulocyte Absolute 0.02 K/mm3 (0.00-0.031); Immature Granulocyte Percent A 0.3 % (0-0.5); Lipase 400 U/L (23-300); Lymphocytes Absolute Auto 0.89 K/mm3 (0.9-3.2); Lymphocytes Percent Auto 13.9 % (18.3-44.2); Mean Corpuscular HGB Conc 33.3 g/dl (32-36); Mean Corpuscular Hemoglobin 29.9 pg (26-34); Mean Corpuscular Volume 89.7 fl (80-100); Mean Platelet Volume 9.2 fl (7.4-10.4); Monocytes Absolute Auto 1.1 K/mm3 (0.1-0.6); Monocytes Percent Auto 17.2 % (2.6-8.5); Neutrophils Absolute Auto 4.1 K/mm3 (1.3-6.7); Neutrophils Percent Auto 64.1 % (45.5-73.1); Platelet Count Result 188 k/mm3 (150-375); Potassium 4.2 mmol/L (3.4-5.0); Red Blood Count 4.75 M/mm3 (4.6-6.20); Red Cell Distribution Width 14.6 % (11.5-14.5); Sodium 135 mmol/L (137-145); White Blood Count 6.4 K/mm3 (4.5-10.0)
== END 2021-07-26 10:27 | disposition home or self-care (01) ==
LOC: ANHSURGERY 10:30
PROVIDERS: PCP Family Medicine; Visit Provider Surgery
DX: K80.10 Calculus of gallbladder with chronic cholecystitis without obstruction (principal); Z01.818 Encounter for other preprocedural examination
CPT/HCPCS: 36415; 80048; 80076; 82150; 83690; 85025; 86850; 86900; 86901

== ENCOUNTER 2021-08-04 01:21 | Day surgery (SDC) | payer MEDICARE, SELFPAY ==
[2021-07-20 10:23] VITALS: BMI 25.2
--- NOTE | 2021-07-20 10:51 | PC.NURSE ---
Addendum entered by Teressa Melendez RN 08/03/21 10:05: PT'S DATE/TIME CHANGED. NEW DATE/TIME- ARRIVE 0630 ON 08/04/21, OR TIME-0830. CLEAR LIQUIDS UP TO 0530. PT RELAYS UNDERSTANDING. INSTRUCTED TO TAKE AM MEDS INSTRUCTED W/ SIPS WATER. RELAYS UNDERSTANDING. Original Note: Report to the Outpatient Waiting Room, entrance under the green pavilion located off [facility], at time ___8:30AM____ on date ___08/03/21____. OR Time: __10:30AM . - You and your visitor will be asked a series of questions to screen for COVID 19 for your protection. - A mask is required within the hospital. - Only one visitor is allowed at this time. Patient visitors will be guided where to wait when not with patient. Preoperative COVID Testing Requirements: No COVID Test needed if: (proof is required; if not received patient will have Rapid Test prior to entry) - Patient has received COVID Vaccine at least 14 days prior to procedure date or - Patient has positive COVID test result within last 90 days of surgery date. COVID Test needed if above criteria is not met If not COVID vaccinated a COVID test must be conducted within 72 hours of surgery and patient is asked to isolate self from time of testing until procedure. You will go to the [facility] [place] Testing Site for your COVID testing. The [facility] Testing site is located at the corner of [address] [facility]. You will only be called if COVID results are positive and your surgeon may reschedule your elective surgery date. Patients may have clear liquids (water, carbonated beverages, clear teas, apple juice) until 3 hours prior to surgery with a maximum of 20 ounces. - No food from midnight until time of surgery 7:30AM - Infants may have breast milk until 4 hours before surgery, infant formula 6 hours prior to surgery. - Children will be allowed to drink immediately following surgery. If applicable, please bring a bottle or sippy cup to assist with drinking. Juice, water, soda, and popsicles are readily available. For infants on formula, please bring formula the day of surgery. Pacifiers are allowed. Take the following medications with a SIP of water the morning of surgery: AMLODIPINE, METOPROLOL, NITRO PATCH, TRAMADOL Medications to discontinue per physician PLAVIX 5 DAYS PRE-OP Date to take last dose____07/28/21 Please no make-up, nail danish, hairspray, perfume, deodorant, or body powder the day of surgery. No jewelry (including any body piercings) or valuables the day of surgery, leave them at home. Please take a shower or bath the night before, or the morning of, surgery with an antibacterial soap. Wear comfortable, loose fitting clothing. Children are encouraged to wear pajamas. - Jewelry must be removed prior to entering the operating room. Rings and piercings that are not removed may be cut off. - The hospital will not accept responsibility for valuables. - Please leave all valuables, including medications, at home the day of surgery. If you are going home after surgery, a licensed bobtail driver must drive you home. - NO public transportation without another adult. - We recommend that an adult stay with you for 24 hours following discharge. - We also recommend that you do not drive, make important decision, drink alcoholic beverages, or take any drugs that were not prescribed by your health care provider for at least 24 hours after your discharge time. For Pediatric surgeries, we recommend two adults accompany the child home (only one inside the building at this time). Follow any additional instructions given to you from your surgeon. Telephone instructions given to ___PATIENT and asked if any additional questions and then verbalized understanding. Patient advised to call surgeon office or pre surgery nurse liaison [phone] if any additional questions.
--- NOTE | 2021-08-03 16:41 | PM.IMHP ---
H&P: HPI History of Present Illness Date/Time: 08/03/21 16:41 Chief Complaint: Abdominal pain Narrative: patient is an 85-year-old man who was seen in early June. He has a history of epigastric and right upper quadrant abdominal pain that is postprandial in nature. He went to the emergency room in late May for this. CT showed a distended gallbladder with indistinct wall suggestive of cholecystitis. Follow-up ultrasound showed numerous gallstones. The patient has had previous episodes of pain similar to this. He is taken now to surgery for laparoscopic cholecystectomy. He has a history of coronary disease. He had a coronary artery bypass graft surgery in the and has had coronary stents placed on 3 different occasions. He takes Plavix daily and this has been held for surgery. Review of Systems Review of Systems: All systems reviewed & are unremarkable except as noted in HPI and below Constitutional: Constitutional: Denies chills and Denies fever(s) Cardiovascular: Cardiovascular: Denies chest pain, Denies diaphoresis, Denies dyspnea and Denies paroxysmal nocturnal dyspnea Respiratory: Respiratory: Denies chest congestion, Denies cough and Denies dyspnea Integumentary/Breasts: Skin/Breast: Denies lesions and Denies rash PMFSH Past Medical History Medical History Aneurysm of infrarenal abdominal aorta BPH (benign prostatic hyperplasia) Diverticulosis GERD (gastroesophageal reflux disease) HLD (hyperlipidemia) HTN (hypertension) Surgical History Surgical History H/O heart bypass surgery H/O shoulder surgery Family History Family History Father Heart disease Diabetes mellitus Mother Heart disease Sibling Acute myocardial infarction Hypertension Social History Social History Smoking status: Former smoker Tobacco type: cigars Additional smoking assessment comments: SMOKED 1 CIGAR/DAY X 5 YEARS IN THE S Alcohol intake: never Substance use: never Substance use type: does not use Gender identity (if verbalized by the patient): Male Spiritual care concerns: No Meds Home Medications and Allergies Home Medications Medication Instructions Recorded Confirmed Type atorvastatin 80 mg PO HS 06/26/20 08/03/21 History clopidogrel 75 mg PO DAILY 06/26/20 08/03/21 History irbesartan 300 mg PO QAM 06/26/20 08/03/21 History metoprolol tartrate 50 mg PO BID 06/26/20 08/03/21 History nitroglycerin 1 patch TRANSDERMAL QAM 06/26/20 08/03/21 History pantoprazole 40 mg PO DAILY 06/26/20 08/03/21 History tamsulosin [Flomax] 0.4 mg PO HS 06/26/20 08/03/21 History tramadol 100 mg PO HS 06/26/20 08/03/21 History amlodipine 5 mg PO QAM 05/23/21 08/03/21 History aspirin [Adult Aspirin EC Low 81 mg PO DAILY 07/20/21 08/03/21 History Strength] tramadol 50 mg PO QAM 07/20/21 08/03/21 History Allergies Allergy/AdvReac Type Severity Reaction Status Date / Time aspirin AdvReac CAUSES Verified 08/03/21 11:46 ULCERS ibuprofen [From Motrin] AdvReac CAUSES Verified 08/03/21 11:46 ULCERS Exam Const: General: comfortable, no acute distress, alert and awake HENMT: Head: normocephalic and atraumatic Mouth: Yes Normal oral and palatal mucosa present Eyes: Conjunctivae: conjunctivae normal Pupils: Equal, round and reactive pupils present EOM: EOMs intact bilaterally Neck: Neck: normal visual inspection, no lymphadenopathy and nontender Chest: Chest palpation & inspection: abnormal inspection of the chest ( Well-healed median sternotomy scar) Resp: Effort & Inspection: normal respiratory effort Auscultation: clear to auscultation bilaterally Cardio: Rate: regular rate Rhythm: regular rhythm Heart sounds: no gallops, no murmurs and no rubs GI: Inspection:
[2021-08-04] VITALS (14 sets, daily range): BP systolic 119–145; BP diastolic 51–69; PULSE 46–57; RESP 10–20; TEMP 36.1–36.7; O2SAT 98–100; BMI 26.5
[2021-08-04] MEDS: LACTATED RINGERS 1,000 ML 30 ML IV CONT ×2 (11:28→14:35)
[2021-08-04] MEDS: ACETAMINOPHEN 500 MG TABLET 1000 MG PO (11:32)
--- NOTE | 2021-08-04 12:27 | WPDHPUPDATE1 ---
History and Physical Update Update Date/Time: 08/04/21 12:27 History and Physical has been reviewed, including an updated exam of the patient. There are NO changes in the patient's condition. Risks, benefits, and alternatives have been discussed and questions answered. Patient agrees to proceed with procedure.
--- NOTE | 2021-08-04 12:43 | WPDANESEPP ---
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 Patient Data Age: 85 Gender: M Height: 1.7 m Weight: 77.1 kg Last Vital Signs Temp 96.9 F L 08/04/21 10:00 Pulse 53 L 08/04/21 10:00 Resp 18 08/04/21 10:00 BP 140/60 08/04/21 10:00 Allergies Allergy/AdvReac Type Severity Reaction Status Date / Time aspirin AdvReac CAUSES Verified 08/04/21 11:39 ULCERS ibuprofen [From Motrin] AdvReac CAUSES Verified 08/04/21 11:39 ULCERS Home Medications Medication Instructions Recorded Confirmed Type atorvastatin 80 mg PO HS 06/26/20 08/04/21 History clopidogrel 75 mg PO DAILY 06/26/20 08/04/21 History irbesartan 300 mg PO QAM 06/26/20 08/04/21 History metoprolol tartrate 50 mg PO BID 06/26/20 08/04/21 History nitroglycerin 1 patch TRANSDERMAL QAM 06/26/20 08/04/21 History pantoprazole 40 mg PO DAILY 06/26/20 08/04/21 History tamsulosin [Flomax] 0.4 mg PO HS 06/26/20 08/03/21 History tramadol 100 mg PO HS 06/26/20 08/03/21 History amlodipine 5 mg PO QAM 05/23/21 08/04/21 History aspirin [Adult Aspirin EC Low 81 mg PO DAILY 07/20/21 08/04/21 History Strength] tramadol 50 mg PO QAM 07/20/21 08/03/21 History ECG: Rate: 74 P: 35 [place]: 116 QRS: -31 QRSD: 105 T: -25 QT: 382 QTc: 424 Interpretive Statements SINUS RHYTHM WITH SHORT [place] INTERVAL VENTRICULAR PREMATURE COMPLEX LEFT AXIS DEVIATION VOLTAGE CRITERIA FOR LVH BORDERLINE R WAVE PROGRESSION, ANTERIOR LEADS BORDERLINE ST-T WAVE ABNORMALITY- INFERIOR LEADS BASELINE ARTIFACT- I, II, III BORDERLINE ECG Electronically Signed On 05-23-2021 11:01:24 CDT by Zia Vega D.O. Other studies: [facility] 06/26/2021 moderate risk for cardiac event. Left main normal. patent REESE to LAD, circ occluded first obtuse margin. RCA, severely diseased. Patient hx anesthesia problems: none Family hx anesthesia problems: none Results Review: All pre-operative results and documents have been reviewed as part of the pre-operative evaluation. [facility] Past Medical History Medical History Aneurysm of infrarenal abdominal aorta BPH (benign prostatic hyperplasia) Diverticulosis GERD (gastroesophageal reflux disease) HLD (hyperlipidemia) HTN (hypertension) Surgical History Surgical History H/O heart bypass surgery H/O shoulder surgery Family History Family History Father Heart disease Diabetes mellitus Mother Heart disease Sibling Acute myocardial infarction Hypertension Social History Social History Smoking status: Former smoker Tobacco type: cigars Additional smoking assessment comments: SMOKED 1 CIGAR/DAY X 5 YEARS IN THE 1950S Alcohol intake: never Substance use: never Substance use type: does not use Living arrangements: alone Gender identity (if verbalized by the patient): Male Spiritual care concerns: No Exam Day of Procedure 08/04/21 12:43
--- NOTE | 2021-08-04 12:48 | WPDANESEFPP ---
Anes - Eval Final PreProcedure Day of Procedure 08/04/21 12:48 Patient weight: overweight Heart: regular rate and rhythm Lungs: clear to auscultation Airway: Mallampati scale class II Neurological: alert and oriented Last oral intake: >/= 8 hours ASA classification: III Emergent: no Anesthetic plan: proceed Anesthesia type and monitoring: general ETT and standard monitoring Results Review: All pre-operative results and documents have been reviewed as part of the pre-operative evaluation. Informed Consent: The patient's anesthetic plan and its attendant risks and benefits were discussed with the patient/family/POA. Questions were solicited and answers provided to the satisfaction of the patient/family/POA.
[2021-08-04] MEDS: ceFAZolin 2 GM/D5W 50 ML 2 GM/50 ML BAG IVPB (12:53)
[2021-08-04] MEDS: BUPIVACAINE HCL 0.5% PF 30 ML VIAL INFILTRATE (13:35)
--- NOTE | 2021-08-04 15:20 | SUR.PHASEI ---
[id number]- family member updated by phone. given room number.
--- NOTE | 2021-08-04 15:45 | ADMGEN ---
This patient, Beau Freeman, was admitted to Medical Room 245-. Patient/family oriented to hospital policies and general routines including ID bracelet, bed and alarms, visiting hours, pain management, procedures, bathroom and other care routines, personal items, smoking policy, room service/diet, and visiting hours. Information on how to activate the Rapid Response Team has been discussed. Patient/Family are encouraged to report perceived risks to care and to ask questions if they do not understand what they are told or what they should do.
[2021-08-04] MEDS: HYDROcodone/acetaminophen (*CRX) 5-325 MG TABLET 1 TAB PO (16:56)
--- NOTE | 2021-08-04 19:45 | PM.IMCN ---
Assessment and Plan Assessment and plan (1) S/P laparoscopic cholecystectomy: Onset Date: 08/04/21 Code(s): Z90.49 - Acquired absence of other specified parts of digestive tract Status: Acute (2) Chronic cholecystitis with calculus: Code(s): K80.10 - Calculus of gallbladder with chronic cholecystitis without obstruction Status: Chronic (3) Antiplatelet or antithrombotic long-term use: Code(s): Z79.02 - senior living (current) use of antithrombotics/antiplatelets Status: Chronic (4) CAD (coronary artery disease): Qualifiers: Associated angina: without angina Coronary Disease-Associated Artery/Lesion type: [place] artery [place] vs. transplanted heart: [place] heart Qualified Code(s): I25.10 - Atherosclerotic heart disease of [place] coronary artery without angina pectoris Code(s): I25.10 - Atherosclerotic heart disease of [place] coronary artery without angina pectoris Status: Chronic Additional Plan The patient has done well postoperatively and has minimal complaints of pain. Primary services advancing the patient's diet as tolerated. Will resume patient's Plavix when okay with primary service. Patient has history of coronary artery disease but has no significant symptoms at this time. The chest pain that he reports to me is likely due to his recent abdominal procedure in a suspect may been due to diaphragm irritation. He has not had a recurrence of pain. Pain is not consistent with his prior history of [place]. he does have a history of hypertension but his blood pressures are within target range and his home Norvasc has been continued. Patient's medical conditions are currently stable. HPI Data of Consult Consult date: 08/04/21 Requesting Physician: Hoang Crowe MD Primary Care Provider: Doug Martinez MD Consult Narrative Narrative: Date and time of patient contact: 08/04/2021 at 11:30 p.m. Beau Freeman is a 85 year old male with a past medical history of essential hypertension, hyperlipidemia, coronary artery disease and BPH will presented to the hospital for a scheduled laparoscopic cholecystectomy due to gallstones and multiple episodes of right upper quadrant pain. The patient had been evaluated in the ER in June 2020 with epigastric and right upper quadrant abdominal pain that was postprandial nature. At that time he was admitted to [facility] with acute cholecystitis it was treated conservatively with antibiotics. The patient went back to the ER for evaluation May [address] scan which demonstrated distended gallbladder and indistinct gallbladder wall suggestive of cholecystitis. But was treated as a gastritis as he had had couple of episodes of dark emesis but had stable hemoglobin and was discharged home. He had a follow-up abdominal ultrasound as outpatient that demonstrated cholelithiasis and moderately thickened gallbladder wall consistent with acute or chronic cholecystitis. Again the ultrasound was unchanged from last year. The patient was evaluated by General surgery in early June and was scheduled for last for scopic cholecystectomy which she underwent today. He reports that postop his pain is been minimal. He did have an episode of some right-sided chest discomfort that lasted a few minutes. The pain did not radiate anywhere. He has not been having any shortness of breath. He denies lower extremity swelling or orthopnea. He states that he has not yet had anything to eat or drink. He has been voiding without difficulty. He has been sitting up in chair at the bedside earlier this evening and reports that he feels relatively good. Review of Systems Review of Systems: 12 systems were reviewed with pertinent positives and negatives per HPI. Except as documented in the HPI, all other systems were reviewed and are negative. REPLACED BY [facility] Past Medical History Medical History (Updated 08/04/21 @ 19:57 by Cheyanne Blake DO)
[2021-08-04] MEDS: ATORVASTATIN 40 MG TABLET 80 MG PO (21:01)
[2021-08-04] MEDS: TAMSULOSIN HCL 0.4 MG CAPSULE PO (21:01)
[2021-08-04] MEDS: ENOXAPARIN 30 MG/0.3 ML SYRINGE SUB-Q (21:01)
[2021-08-04] MEDS: traMADol HCL (*CRX) 50 MG TABLET 100 MG PO (21:03)
[2021-08-05] VITALS: PULSE 72
[2021-08-05 04:00] VITALS: PULSE 75
[2021-08-05] MEDS: HYDROcodone/acetaminophen (*CRX) 5-325 MG TABLET 1 TAB PO (05:58)
[2021-08-05 07:06] LABS: Hematocrit 40.6 % (42.0-52.0); Hemoglobin 13.5 g/dL (14.0-18.0); Mean Corpuscular HGB Conc 33.3 g/dl (32-36); Mean Corpuscular Hemoglobin 29.7 pg (26-34); Mean Corpuscular Volume 89.4 fl (80-100); Mean Platelet Volume 9.6 fl (7.4-10.4); Platelet Count Result 156 k/mm3 (150-375); Red Blood Count 4.54 M/mm3 (4.6-6.20); Red Cell Distribution Width 14.4 % (11.5-14.5)
[2021-08-05 07:12] LABS: Anion Gap 5 mmol/L (8-16); Blood Urea Nitrogen 21 mg/dL (9-20); Carbon Dioxide 26 mmol/L (22-30); Chloride 100 mmol/L (98-107); Estimated CRCL calculation 49 ml/min; Estimated Glomerular Filt Rate > 60; Glucose 120 mg/dL (65-110); Potassium 4.1 mmol/L (3.4-5.0); Sodium 131 mmol/L (137-145)
[2021-08-05 08:00] VITALS: PULSE 77
--- NOTE | 2021-08-05 08:56 | PM.IMPN ---
Progress Note: A&P Assessment and Plan (1) S/P laparoscopic cholecystectomy: Onset Date: 08/04/21 Code(s): Z90.49 - Acquired absence of other specified parts of digestive tract Status: Acute Assessment and Plan: Pain control Has worsening leukocytosis Has abdominal distension Surgery recommendation appreciated Probably patient has constipation laxative was ordered (2) Chronic cholecystitis with calculus: Code(s): K80.10 - Calculus of gallbladder with chronic cholecystitis without obstruction Status: Chronic Assessment and Plan: Status post laparoscopic cholecystectomy as above (3) Antiplatelet or antithrombotic long-term use: Code(s): Z79.02 - retirement (current) use of antithrombotics/antiplatelets Status: Chronic Assessment and Plan: Resume Plavix and aspirin (4) CAD (coronary artery disease): Qualifiers: Coronary Disease-Associated Artery/Lesion type: [place] artery [place] vs. transplanted heart: [place] heart Associated angina: without angina Qualified Code(s): I25.10 - Atherosclerotic heart disease of [place] coronary artery without angina pectoris Code(s): I25.10 - Atherosclerotic heart disease of [place] coronary artery without angina pectoris Status: Chronic Assessment and Plan: Resume Plavix and aspirin (5) Acute hyponatremia: Code(s): E87.1 - Hypo-osmolality and hyponatremia Status: Acute Assessment and Plan: Probably related to SIADH fluid restriction for now repeat CMP be in a.m. (6) Leukocytosis: Code(s): D72.829 - Elevated white blood cell count, unspecified Status: Acute Assessment and Plan: Probably related to surgery monitor Anticipate probable discharge in a.m. Subjective Date/time seen: 08/05/21 08:56 Interval history: Patient seen and examined Patient feels weak today complaining of abdominal distension abdominal pain at the surgery site Patient denies fever headache chest pain shortness of breath I am seeing the patient for coronary artery disease Exam Narrative: Alert Chest no wheeze crackles Abdomen abdomen distended mildly tender CVS S1 + S2 Lower extremity edema Objective Data Vital Signs Vital Signs: Vital Signs - 24 hr 08/04/21 10:00 08/04/21 14:30 08/04/21 14:45 Temperature 96.9 F L 97.7 F Pulse Rate 53 L 52 L 46 L Respiratory Rate 18 12 10 L Blood Pressure 140/60 121/65 127/65 Pulse Oximetry 100 100 08/04/21 15:00 08/04/21 15:15 08/04/21 15:31 Temperature Pulse Rate 50 L 47 L 47 L Respiratory Rate 13 16 16 Blood Pressure 134/63 120/64 119/66 Pulse Oximetry 100 100 100 08/04/21 15:45 08/04/21 16:00 08/04/21 16:03 Temperature 97.3 F L 97.3 F L Pulse Rate 47 L 53 L 52 L Respiratory Rate 16 16 Blood Pressure 145/51 H 136/59 L Pulse Oximetry 100 100 08/04/21 16:47 08/04/21 17:01 08/04/21 17:30 Temperature 97.3 F L 97.3 F L Pulse Rate 51 L 51 L 51 L Respiratory Rate 16 18 Blood Pressure 141/55 H 121/69 Pulse Oximetry 98 99 08/04/21 20:00 08/04/21 22:00 08/05/21 00:00 Temperature 98.0 F Pulse Rate 57 L 55 L 72 Respiratory Rate 20 Blood Pressure 135/60 Pulse Oximetry 99 08/05/21 04:00 Temperature Pulse Rate 75 Respiratory Rate Blood Pressure Pulse Oximetry Intake/Output Intake/Output: Intake & Output 08/02/21 08/03/21 08/04/21 08/05/21 23:59 23:59 23:59 23:59 Intake Total 710 650 Output Total 300 Balance 710 350 Meds/Results Medications: Active Medications Generic Name Dose Route Start Last Admin Trade Name Freq PRN Reason Stop Dose Admin Acetaminophen 500 mg 08/04/21 15:37 Acetaminophen 500 Mg Tablet PO Q6H PRN Mild Pain (1-3) or Fever Hydrocodone Bitart/Acetaminophen 1 tab 08/04/21 15:37 08/05/21 05:58 Hydrocodone/Acetaminophen (*Crx) 5-325 Mg Tablet PO 1 tab Q4H PRN Administration Pain Rated 4-6 Amlodipine Besylate 5
[2021-08-05] MEDS: amLODIPine BESYLATE 5 MG TABLET PO (09:09)
[2021-08-05] MEDS: ASPIRIN 81 MG ENTERIC TABLET PO (09:09)
[2021-08-05] MEDS: IRBESARTAN 150 MG TABLET 300 MG PO (09:09)
[2021-08-05 09:10] VITALS: PULSE 75
[2021-08-05] MEDS: ENOXAPARIN 30 MG/0.3 ML SYRINGE SUB-Q (09:10)
[2021-08-05] MEDS: NITROGLYCERIN 0.4 MG/HR PATCH 1 PATCH TRANSDERM (09:10)
[2021-08-05] MEDS: PANTOPRAZOLE 40 MG TABLET PO (09:10)
[2021-08-05] MEDS: METOPROLOL TARTRATE 50 MG TAB PO (09:10)
[2021-08-05] MEDS: MORPHINE SULFATE (*CRX) 2 MG/ML INJ IV PUSH (09:13)
[2021-08-05] MEDS: traMADol HCL (*CRX) 50 MG TABLET PO (09:18)
[2021-08-05 10:00] VITALS: BP 137/63; PULSE 72; RESP 20; TEMP 36.8; O2SAT 97
[2021-08-05] MEDS: CLOPIDOGREL BISULFATE 75 MG TABLET PO (12:08)
--- NOTE | 2021-08-05 14:18 | PM.DS ---
DS: Admitting Diagnosis Discharge Date 08/05/2021 Admitting Diagnosis chronic cholecystitis with gallstones Coronary artery disease anti-platelet therapy history of coronary bypass graft essential hypertension gastroesophageal reflux disease DS: Discharge Diagnosis Discharge Diagnosis (1) Chronic cholecystitis with calculus: Code(s): K80.10 - Calculus of gallbladder with chronic cholecystitis without obstruction Status: Chronic Assessment and Plan: status post laparoscopic cholecystectomy 08/04/2021. Patient did well after overnight observation and was discharged on 08/05/2021. (2) S/P laparoscopic cholecystectomy: Onset Date: 08/04/21 Code(s): Z90.49 - Acquired absence of other specified parts of digestive tract Status: Acute (3) CAD (coronary artery disease): Qualifiers: Coronary Disease-Associated Artery/Lesion type: [place] artery [place] vs. transplanted heart: [place] heart Associated angina: without angina Qualified Code(s): I25.10 - Atherosclerotic heart disease of [place] coronary artery without angina pectoris Code(s): I25.10 - Atherosclerotic heart disease of [place] coronary artery without angina pectoris Status: Chronic Assessment and Plan: Overnight observation on telemetry showed no evidence of cardiac complications. (4) Antiplatelet or antithrombotic long-term use: Code(s): Z79.02 - nursing home (current) use of antithrombotics/antiplatelets Status: Chronic Assessment and Plan: Resume Plavix at discharge. Patient given a dose on 08/05/2021 (5) HTN (hypertension): Qualifiers: Hypertension type: primary hypertension Qualified Code(s): I10 - Essential (primary) hypertension Code(s): I10 - Essential (primary) hypertension Status: Chronic (6) GERD (gastroesophageal reflux disease): Code(s): K21.9 - Gastro-esophageal reflux disease without esophagitis Status: Chronic DS: Summary Hospital Course Hospital Course: patient is an 85-year-old man who said 2 or 3 severe episodes of recurrent biliary colic. He also has had some chronic back pain. Imaging and overall evaluation has shown gallstones and evidence of chronic cholecystitis. He has a significant cardiac history status post CABG as well as multiple coronary stents. He takes Plavix for this reason. His Plavix was held and he was taken to surgery on 08/04/2021. He underwent laparoscopic cholecystectomy which went well. He had significant findings of chronic cholecystitis with multiple pigmented gallstones. Postoperatively the patient did quite well. He was eating and very comfortable. His Plavix was restarted the day after surgery per the hospitalist service. Patient was doing well and wished to go home on postop day 1. He is discharged now in good condition. He had no evidence of a rhythmic a or other coronary artery disease after overnight observation. Status at Discharge Overall status at discharge: patient is progressing back to baseline Time Spent with Patient Time attestation: Total time spent providing and/or coordinating discharge services: Exam Const: General: comfortable and no acute distress; No confusion Orientation/consciousness: patient oriented x3 and No confusion Resp: Effort & Inspection: normal respiratory effort Auscultation: clear to auscultation bilaterally Cardio: Rate: regular rate Rhythm: regular rhythm GI: Inspection: non-distended, incision ( All trocar sites healing well) and scaphoid GI Palp: Yes Soft to palpation, Yes Tenderness to palpation present (GI) ( mild appropriate tenderness), No Guarding due to palpation present (GI) and No Rebound tenderness present Auscultation: normal bowel sounds Neuro: General: patient oriented x3, no focal motor deficits and No confusion Extrem: General: no calf tenderness and no edema Psych: Affect: normal affect Insight: Good insight present (Psyc
[2021-08-05 14:20] VITALS: BP 114/51; PULSE 63; RESP 20; TEMP 36.8; O2SAT 97
--- NOTE | 2021-08-05 14:28 | WPDANESPN ---
Anes - Prog Note Post-Op Date/Time: 08/05/21 14:28 Cardiovascular status: normal Respiratory status: normal Airway patency: baseline Mental status: baseline Post-Op hydration status: normal Vital Signs: Last Vital Signs Temp 36.8 C 08/05/21 10:00 Pulse 72 08/05/21 10:00 Resp 20 08/05/21 10:00 BP 137/63 08/05/21 10:00 Pulse Ox 97 08/05/21 10:00 Pain Score (VAS): 0 I/O: Intake & Output 08/04/21 08/05/21 08/05/21 23:59 07:59 15:59 Intake Total 460 350 540 Output Total 300 Balance 460 50 540 Laboratory Tests 08/05/21 05:11 08/05/21 05:11 08/05/21 08/05/21 05:11 05:11 WBC 14.0 H RBC 4.54 L Hgb 13.5 L Hct 40.6 L MCV 89.4 MCH 29.7 MCHC 33.3 RDW 14.4 Plt Count 156 MPV 9.6 Sodium 131 L Potassium 4.1 Chloride 100 Carbon Dioxide 26 Anion Gap 5 L BUN 21 H Creatinine 0.90 Estim Creat Clear Calc 49 Estimated GFR > 60 Glucose 120 H Calcium 9.0 Post-procedural complaints: none Patient Feedback: Patient satisfied with anesthetic care.
[2021-08-05] MEDS: polyethylene glycoL 3350 17 GM POWD.PACK PO (14:39)
--- NOTE | 2021-08-07 17:15 | W.PM.PROC2 ---
Procedure Note - Detailed Date of Procedure 08/04/21 Pre-op Diagnosis Chronic Cholecystitis with Stones Post-op Diagnosis same Procedure Performed Laparoscopic cholecystectomy Surgeon Hoang Crowe MD Anesthesia general and local (0.5% Marcaine) Indications Patient is an 85-year-old man who has had several episodes of severe right upper quadrant postprandial abdominal pain. Ultrasound shows multiple gallstones. He is taken to surgery now for laparoscopic cholecystectomy. Findings Chronic inflammation, multiple small pigmented stones in the gallbladder, no liver abnormalities, no biliary ductal dilatation. Description of Procedure The patient was taken to surgery and induced into general anesthesia. The abdomen is prepped draped. Trocars were placed in the usual fashion using 0.5% Marcaine and applied Medical optical trocars. A 5 mm camera was used. The gallbladder was freed from adhesions. A laparoscopic aspirator was then used and the gallbladder was decompressed. A Vicryl endoloop was used to close the cholecystotomy. The gallbladder was then further freed from adhesions and retracted anterosuperiorly. Dissection was carried out in the cholecystohepatic triangle. There was quite a bit of chronic inflammation and associated oozing with dissection. The cystic duct and cystic artery were dissected out very carefully. The gallbladder was dissected off the liver at its lower 3rd. Critical view was achieved. We securely clipped and divided the cystic duct and cystic artery. We then continued the dissection of the gallbladder freeing it from the liver. The upper half of the gallbladder was so chronically inflamed that there was really no tissue plane between the gallbladder and the liver. Some entry into the gallbladder occurred. Black pigmented stones were noted. No spillage of stones occurred. Some injury to the surface of the liver occurred as well. Cautery was used to achieve hemostasis. Eventually we completely freed the gallbladder from the liver. It was placed immediately in an Endo-Catch bag. It was retrieved through the 10 11 epigastric trocar. Epigastric trocar was then replaced. The right upper quadrant was reviewed. Clotted blood was suctioned away. I then cauterized the gallbladder fossa to achieve good hemostasis. Repeated irrigation suctioning and cautery was carried out. Eventually there was no evidence of bleeding at all. There was no evidence of bile leakage either. Additional irrigation and suctioning was carried out in all continued to look good. We then evacuated CO2 and removed the trocar sleeves. The fascia was closed at the 10 11 epigastric trocar site with 0 Vicryl suture. Skin wounds were closed with 4-0 Monocryl subcuticular skin suture. The wounds were dressed with Exofin surgical adhesive. The patient was awakened and taken to recovery in good condition. Sponge and needle counts were correct x2. Estimated Blood Loss -20 Urine Output 300 Drains No Packing No Pathology yes (Gallbladder) Complications No immediate complications Condition stable Disposition PACU
== END 2021-08-05 15:05 | disposition home or self-care (01) ==
LOC: ANHSURGERY 09:42 → ANH2MED 17:19
PROVIDERS: PCP Family Medicine; Visit Provider Surgery
PROC: 0FT44ZZ Resection of Gallbladder, Percutaneous Endoscopic Approach (ICD-10-PCS; CPT 47562; principal; 2021-08-04 12:30)
DX: K80.10 Calculus of gallbladder with chronic cholecystitis without obstruction (principal); K66.0 Peritoneal adhesions (postprocedural) (postinfection); Z90.49 Acquired absence of other specified parts of digestive tract; Z79.02 Long term (current) use of antithrombotics/antiplatelets; I25.10 Atherosclerotic heart disease of native coronary artery without angina pectoris; E87.1 Hypo-osmolality and hyponatremia; D72.829 Elevated white blood cell count, unspecified; N40.0 Benign prostatic hyperplasia without lower urinary tract symptoms; K57.30 Diverticulosis of large intestine without perforation or abscess without bleeding; K21.9 Gastro-esophageal reflux disease without esophagitis; E78.5 Hyperlipidemia, unspecified; I71.4 Abdominal aortic aneurysm, without rupture; Z95.1 Presence of aortocoronary bypass graft; Z95.5 Presence of coronary angioplasty implant and graft; Z87.891 Personal history of nicotine dependence; I49.3 Ventricular premature depolarization; Z79.51 Long term (current) use of inhaled steroids; I10 Essential (primary) hypertension
CPT/HCPCS: 47562; 36415; 80048; 80076; 82150; 83690; 85025; 85027; 86850; 86900; 86901; 88304; A9270; C1713; J0690; J1100; J1650; J2270; J2405; J2704; J2710; J3010; J7120

== ENCOUNTER 2021-12-19 08:49 | Outpatient (CLI) | payer MEDICARE, SELFPAY ==
[2021-12-19 09:48] LABS: Alanine Aminotransferase 24 U/L (16-63); Albumin Level 3.7 g/dL (3.4-5.0); Alkaline Phosphatase 123 U/L (46-116); Anion Gap 7 mmol/L (8-16); Aspartate Amino Transferase 20 U/L (15-37); Bilirubin,Total 0.8 mg/dL (0.00-1.00); Blood Urea Nitrogen 17 mg/dL (7-18); Calcium 9.2 mg/dL (8.5-10.1); Carbon Dioxide 29 mmol/L (21-32); Chloride 106 mmol/L (98-108); Cholesterol 134 mg/dL (0-200); Estimated Glomerular Filt Rate > 60; Glucose 94 mg/dL (70-99); HDL Direct 49 mg/dL (40-60); LDL Cholesterol Calculated 71 mg/dL (<130); Osmolality Calculated 295 mOsm/kg (285-295); Potassium 4.7 mmol/L (3.5-5.1); Sodium 142 mmol/L (136-145); Triglycerides 68 mg/dL (0-150)
== END 2021-12-19 08:50 | disposition home or self-care (01) ==
LOC: CHSLAB 08:51
PROVIDERS: PCP Family Medicine; Visit Provider Internal Medicine Cardiovascular Disease
DX: E78.5 Hyperlipidemia, unspecified (principal)
CPT/HCPCS: 36415; 80053; 80061

== ENCOUNTER 2021-12-22 13:38 | Outpatient (CLI) | payer MEDICARE, SELFPAY ==
--- NOTE | ~2021-12-22 | US_ITS ---
EXAMINATION: US aorta DATE: 12/22/2021 14:00 INDICATION: Abdominal aortic aneurysm TECHNIQUE: Grayscale, color Doppler, and pulsed Doppler images of the aorta and common iliac arteries were obtained. COMPARISON: 11/01/2020 FINDINGS: Maximum vascular dimensions are as follows: Proximal aorta: 2.5 cm Mid aorta: 2.6 cm Distal aorta: 3.8 cm Right common iliac artery: 1.6 cm Left common iliac artery: 1.7 cm There is a 3.8 x 3.7 cm fusiform infrarenal abdominal aortic aneurysm with minimal change since the c omparison examination. IMPRESSION: 1. Fusiform infrarenal abdominal aortic aneurysm measuring up to 3.8 cm with minimal change. Reviewed, dictated and finalized at location F. IMPRESSION: 1. Fusiform infrarenal abdominal aortic aneurysm measuring up to 3.8 cm with mi nimal change.
--- NOTE | 2021-12-22 13:47 | ECHO_ITS ---
Patient Info Name: Beau Freeman Age: 86 years : 1935 Gender: Male Technical Quality: Good Exam Date: 12/22/2021 1:47 PM Exam Location: [facility] Patient Status: Outpatient Admit Date: 12/22/2021 Staff Ordering Physician: Zia Vega DO Electrician Sound: Syeda Stokes RDCS Attending Provider: Zia Vega DO Referring Physician: Gary SHELTON; Exam Type: CA echo doppler color flow Study Info Indications I50.9 - Heart failure, unspecified Complete two-dimensional, color flow and Doppler transthoracic echocardiogram is performed. Summary 1. Complete two-dimensional, color flow and Doppler transthoracic echocardiogram is performed. 2. Left ventricular chamber dimension is normal. 3. Left ventricular systolic function is mildly reduced, estimated at 45-50%. 4. Posterior and inferior anne are severely hypokinetic to akinetic. Mid to apical septum is severely hypokinetic. 5. The left ventricular diastolic function is grade II diastolic dysfunction. 6. E/e' 5 is not elevated. 7. Right ventricular systolic function is reduced and with abnormal TAPSE 1.6 cm. 8. Left atrial chamber dimension is mildly enlarged. 9. There is moderate aortic valve sclerosis. 10. There is mild to moderate aortic valve stenosis with a peak velocity of 261 cm/s, mean gradient of 11 mmHg, and aortic valve area of 1.4 cm2. 11. There is mild to moderate aortic valve regurgitation. 12. There is mild mitral valve regurgitation. 13. There is trace tricuspid valve regurgitation. 14. No pulmonary hypertension, estimated pulmonary arterial systolic pressure is 25 mmHg. 15. There is trace pulmonic regurgitation. Left Ventricle E/e' 5 is not elevated. Posterior and inferior anne are severely hypokinetic to akinetic. Mid to apical septum is severely hypokinetic. Left ventricular chamber dimension is normal. Left ventricular systolic function is mildly reduced, estimated at 45-50%. The left ventricular diastolic function is grade II diastolic dysfunction. Right Ventricle Right ventricular systolic function is reduced and with abnormal TAPSE 1.6 cm. Right ventricular chamber dimension is normal. Left Atria Left atrial chamber dimension is mildly enlarged. Right Atria Right atrial chamber dimension is normal. Aortic Valve The aortic valve is trileaflet. There is moderate aortic valve sclerosis. There is mild to moderate aortic valve stenosis with a peak velocity of 261 cm/s, mean gradient of 11 mmHg, and aortic valve area of 1.4 cm2. There is mild to moderate aortic valve regurgitation. Pulmonic Valve There is trace pulmonic regurgitation. Mitral Valve There is no mitral valve stenosis. There is mild mitral valve regurgitation. Tricuspid Valve There is trace tricuspid valve regurgitation. No pulmonary hypertension, estimated pulmonary arterial systolic pressure is 25 mmHg. Pericardium/Pleural There is no pericardial effusion. Inferior Vena Cava Normal inferior vena cava with >50% collapse upon inspiration consistent with normal right atrial pressure, 5 mmHg. Aorta The aortic root size at the sinus of Valsalva is normal. Left Ventricular Outflow Tract Name Value Normal LVOT 2D LVOT Diameter 2.0 cm LV
== END 2021-12-22 13:39 | disposition home or self-care (01) ==
LOC: CHSIMG 13:39
PROVIDERS: PCP Family Medicine; Visit Provider Internal Medicine Cardiovascular Disease
DX: I71.4 Abdominal aortic aneurysm, without rupture (principal)
CPT/HCPCS: 76775; 93306; C8929

== ENCOUNTER 2021-12-29 11:12 | Outpatient (CLI) | payer MEDICARE, SELFPAY ==
--- NOTE | ~2021-12-29 | XR_ITS ---
EXAMINATION: XR lumbar spine 2-3V DATE: 12/29/2021 11:28 INDICATION: Chronic low back pain TECHNIQUE: Anteroposterior and lateral views of the lumbar spine, and cone-down lateral view of the l umbosacral junction were obtained. COMPARISON: 10/27/2020 FINDINGS: There are 25 degrees of thoracolumbar levoscoliosis. There is no fracture. There is stable grade 1 anterolisthesis of L5 on S1. There are bilateral L5 pars defects. There is unchanged severe l oss of intervertebral disc space height at L4-5 and L5-S1. The vertebral body heights are maintained. 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 There is a stable fusiform aneurysm of the infrarenal abdominal aorta. IMPRESSION: 1. Severe lumbar spondylosis without acute findings or significant interval change. Reviewed, dictated and finalized at location B. IMPRESSION: 1. Severe lumbar spondylosis without acute findings or significant interval edson nge.
== END 2021-12-29 11:13 | disposition home or self-care (01) ==
LOC: CHSIMG 11:13
PROVIDERS: PCP Family Medicine; Visit Provider Family Medicine
DX: M54.50 Low back pain, unspecified (principal)
CPT/HCPCS: 72100

== ENCOUNTER 2022-01-06 09:32 | Outpatient (CLI) | payer MEDICARE, SELFPAY ==
--- NOTE | ~2022-01-06 | MR_ITS ---
EXAMINATION: MR lumbar spine wo con DATE: 01/06/2022 10:20 INDICATION: Low back pain radiating to the left leg TECHNIQUE: Magnetic resonance imaging (MRI) of the lumbar spine was performed without intravenous con trast. Sequences included sagittal T2-weighted FSE, sagittal T2-weighted FS FSE, sagittal T1-weighted FSE, and axial T2-weighted FSE. COMPARISON: None FINDINGS: 27 degrees lumbar levoscoliosis measured between T12 and L4. Bilateral L5 pars intra-articular is def ects with 9 mm anterolisthesis L5 on S1. T1 hyperintense hemangioma at L3. Chronic mild anterior wedg ing at T12. Severe disc height loss at L5-S1 with degenerative endplate remodeling at the left [employer] ior inferior endplate of L5 resulting in mild left posterior vertebral body height loss. Remaining ve rtebral body heights are normal. There are few scattered Schmorl's nodes in the lumbar and lower thor acic spine. Additional moderate to severe right-sided predominant disc height loss at L3-L4, mild to moderate right-sided predominant disc height loss at L2-L3 and mild to moderate left-sided predominan t disc height loss at L4-L5. Fibrovascular degenerative endplate changes are seen at L2-L3 and L5-S1. Marrow signal is otherwise unremarkable. The conus medullaris terminates at L1. There is normal sign al in the caudal spinal cord. Multiple T2 hyperintense bilateral renal cysts measuring up to 1.8 cm a t the right kidney. Ectatic infrarenal abdominal aorta measuring up to 3.5 cm in maximal diameter. Pa ravertebral soft tissues are otherwise unremarkable. The following disc levels are specifically discu ssed: T12-L1: Disc is minimally bulging. There is severe bilateral facet joint osteoarthritis. There is min imal left neural foraminal stenosis. There is minimal central canal stenosis. L1-L2: Disc is mildly bulging. There is hypertrophy of the ligamentum flavum. There is moderate bila teral facet joint osteoarthritis. There is mild bilateral neural foraminal stenosis. There is mild ce ntral canal stenosis. L2-L3: Disc is bulging. There is hypertrophy of the ligamentum flavum. There is mild left and moderat e right facet joint osteoarthritis. There is moderate bilateral neural foraminal stenosis. There is m oderate central canal stenosis with small amount of CSF signal interspersed amongst the centrally clu stered nerve roots. L3-L4: Disc is bulging. There is moderate left and severe right facet joint osteoarthritis. There is moderate left and moderate to severe right neural foraminal stenosis. There is mild central canal steven nosis. L4-L5: Disc is bulging. There is moderate right and severe left facet joint osteoarthritis. There is moderate right and moderate to severe left neural foraminal stenosis. There is mild central canal steven nosis. L5-S1: Annular fissure and broad-based disc extrusion extending from foraminal zone to foraminal zone with disc material extending 6 mm cephalad to the level of the inferior endplate of L5. Bilateral pa rs intra-articular is defects with severe bilateral facet joint osteoarthritis. There is severe left and moderate to severe right neural foraminal stenosis. There is mild central canal stenosis. IMPRESSION: 1. 27 degrees lumbar levoscoliosis with severe spondylosis. 2. L5 spondylolysis with bilateral pars interarticularis defects and 9 mm anterolisthesis on S1. 3. Fusiform ectasia of the infrarenal abdominal aorta which measures up to 3.5 cm immediately proxima l to the bifurcation. Reviewed, dictated and finalized at location A. IMPRESSION: 1. 27 degrees lumbar levoscoliosis with severe spondylosis. 2. L5 spondylolysis with bilateral pars interarticularis defects and 9 mm anter olisthesis on S1. 3. Fusiform ectasia of the infrarenal abdominal aorta
== END 2022-01-06 09:33 | disposition home or self-care (01) ==
LOC: CHSIMG 09:33
PROVIDERS: PCP Family Medicine; Visit Provider Family Medicine
DX: M54.50 Low back pain, unspecified (principal)
CPT/HCPCS: 72148

== ENCOUNTER 2022-02-14 11:39 | Outpatient (CLI) | payer MEDICARE, SELFPAY ==
[2022-02-14 12:27] LABS: SARS-CoV-2 RNA PCR Positive (Negative)
== END 2022-02-14 11:40 | disposition home or self-care (01) ==
LOC: CHSLAB 11:41
PROVIDERS: PCP Family Medicine; Visit Provider Family Medicine
DX: U07.1 COVID-19 (principal)
CPT/HCPCS: A9270; C9803; Q0222; U0003; U0005

== ENCOUNTER 2022-02-14 14:26 | Outpatient (CLI) | payer MEDICARE, SELFPAY ==
--- NOTE | 2022-02-14 14:45 | PC.NURSE ---
Pt to room 211 amb. Has no complaints. Plan of care discussed. Consent signed. Pt has no questions. Oriented to room. Call lyons in reach. Reminded to call with needs.
[2022-02-14] MEDS: ACETAMINOPHEN 325 MG TABLET 650 MG PO (15:03)
[2022-02-14] MEDS: BEBTELOVIMAB 175 MG/2 ML VIAL IV PUSH (15:03)
[2022-02-14] MEDS: FAMOTIDINE 20 MG TABLET PO (15:03)
[2022-02-14] MEDS: diphenhydrAMINE HCl CAP 25 MG CAPSULE PO (15:03)
--- NOTE | 2022-02-14 15:51 | PC.NURSE ---
Patient had no c/o after receiving injection. IV discontinued, IV intact. Instructed on monitoring old IV site care and discharge instructions for injection. Patient stated understanding.
== END 2022-02-14 14:27 | disposition home or self-care (01) ==
LOC: CHSTREATRM 14:33
PROVIDERS: PCP Family Medicine; Visit Provider Family Medicine
DX: U07.1 COVID-19 (principal); I10 Essential (primary) hypertension
CPT/HCPCS: A9270; M0222; Q0222

== ENCOUNTER 2023-03-29 10:05 | Outpatient (CLI) | payer MEDICARE, SELFPAY ==
[2023-03-29 11:13] LABS: Cholesterol 132 mg/dL (0-200); HDL Direct 48 mg/dL (40-60); LDL Cholesterol Calculated 67 mg/dL (<130); Triglycerides 87 mg/dL (0-150)
== END 2023-03-29 10:06 | disposition home or self-care (01) ==
LOC: CHSLAB 10:06
PROVIDERS: PCP Family Medicine; Visit Provider Internal Medicine Cardiovascular Disease
DX: E78.5 Hyperlipidemia, unspecified (principal)
CPT/HCPCS: 36415; 80061

== ENCOUNTER 2023-04-23 11:29 | Emergency (ER) | payer MEDICARE, SELFPAY ==
--- NOTE | ~2023-04-23 | CT_ITS ---
EXAMINATION: CT abdomen pelvis w con DATE: 04/23/2023 12:50 INDICATION: Blood in stool. Diarrhea. TECHNIQUE: Computed tomography (CT) of the abdomen and pelvis was performed with 100 mL Omnipaque 350 intravenous contrast. Automated exposure control and iterative reconstruction technique were employe d. The dose-length product was 692.77 mGy-cm. COMPARISON: CT abdomen and pelvis 05/23/2021 FINDINGS: The visualized portions of the lung bases demonstrate mild atelectasis and mild chronic int erstitial lung disease. No pleural effusion. There is left atrial enlargement of the heart. There are coronary artery calcifications. There are calcifications aortic valve. No pericardial effusion. Ther e is a small sliding hiatal hernia. There are cysts in the liver measuring up to 16 mm. The spleen, p ancreas, and adrenal glands are normal. There are cysts in the kidneys measuring up to 2.4 cm on the right. The prostate is moderately enlarged. There is diverticulosis of the colon without evidence of diverticulitis. The appendix is normal. There is mild wall thickening of the colon, consistent with c olitis. There are no dilated loops of bowel. There is a 3.6 cm fusiform aneurysm of infrarenal aorta. There is an umbilical hernia containing fat. There are no pathologically enlarged lymph nodes. There is no free intraperitoneal fluid. There is lumbar levoscoliosis and severe spondylosis. IMPRESSION: 1. Pancolitis. 2. Small sliding hiatal hernia. 3. 3.6 cm fusiform aneurysm of infrarenal aorta. Reviewed, dictated and finalized at location A.
[2023-04-23 11:33] VITALS: BP 140/71; PULSE 77; RESP 20; TEMP 36.7; O2SAT 97
--- NOTE | 2023-04-23 11:33 | ED.GIBLEED ---
HPI - GI Bleed General Chief complaint: GI Bleed Stated complaint: diarreah Time Seen by Provider: 04/23/23 11:32 Source: patient, family and RN notes reviewed Mode of arrival: ambulatory Limitations: no limitations History of Present Illness HPI Narrative: patient states that he has been having black stools since last Saturday. Then Saturday his stool to return to normal he thought it was over and then he started having black stools again yesterday. Says air liquidy. He denies any pain. He denies any fever chills. Denies any nausea vomiting. Says been feeling little bit more weak and tired. Does have a history of gastric ulcers in the past. MD complaint: melena Onset (ago): day(s) (4) Pain Consistency: constant Severity: moderate Relieving factors: none Exacerbating factors: none Associated symptoms: weakness Treatments Prior to Arrival: none Related Data Home Medications Medication Instructions Recorded Confirmed atorvastatin 80 mg tablet 80 mg PO HS 06/26/20 04/23/23 irbesartan 300 mg tablet 300 mg PO QAM 06/26/20 04/23/23 metoprolol tartrate 50 mg tablet 50 mg PO BID 06/26/20 04/23/23 pantoprazole 40 mg tablet,delayed 40 mg PO DAILY 06/26/20 04/23/23 release tamsulosin 0.4 mg capsule (Flomax) 0.4 mg PO HS 06/26/20 04/23/23 tramadol 50 mg tablet 100 mg PO HS 06/26/20 04/23/23 amlodipine 5 mg tablet 5 mg PO QAM 05/23/21 04/23/23 acetaminophen 325 mg capsule 325 mg PO Q6H PRN Pain 12/18/21 04/23/23 aspirin 81 mg tablet,delayed 81 mg PO DAILY 12/18/21 04/23/23 release (Dali Low Dose Aspirin) finasteride 5 mg tablet 5 mg PO DAILY 04/23/23 04/23/23 hydrocodone 5 mg-acetaminophen 325 1 tablet PO Q4-5H PRN Pain 04/23/23 04/23/23 mg tablet Allergies Allergy/AdvReac Type Severity Reaction Status Date / Time aspirin AdvReac CAUSES Verified 04/23/23 11:39 ULCERS ibuprofen [From Motrin] AdvReac CAUSES Verified 04/23/23 11:39 ULCERS Review of Systems Review of Systems: All systems reviewed & are unremarkable except as noted in HPI and below PMFSH Past Medical History Medical History Aneurysm of infrarenal abdominal aorta BPH (benign prostatic hyperplasia) Diverticulosis Essential hypertension GERD (gastroesophageal reflux disease) HLD (hyperlipidemia) Surgical History Surgical History H/O shoulder surgery History of coronary artery stent placement He has had a total of 13 cardiac stent 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 He lives alone. He is still independent activities of daily living. He has 3 children 2 sons and 1 daughter. 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 Primary care physician: Dr. Doug Martinez Code status: Full code Surrogate decision maker: Pratima Olivas (daughter) Smoking status: Former smoker Additional smoking assessment comments: SMOKED 1 CIGAR/DAY X 5 YEARS IN THE 1950'S Alcohol intake: never Substance use: never Substance use type: does not use Lack of Transportation: No Lack of Food: Never True Current Housing: I Have Housing Concerned About Future Housing: No Difficulty Paying Gas/Electric Bills: No Difficulty Paying for Meds: No Currently Unemployed: No Education: Trade/Vocational Certificate Difficulty w/ Childcare or Family Care: No Living arrangements: alone Gender identity (if ve
[2023-04-23 12:00] LABS: Hematocrit 44.6 % (37.0-46.0); Hemoglobin 14.6 g/dL (12.4-15.3); Immature Platelet Fraction Pct 1.4 % (1.0-7.0); Mean Corpuscular HGB Conc 32.7 g/dL (32.0-36.0); Mean Corpuscular Hemoglobin 30.5 pg (27.0-31.0); Mean Corpuscular Volume 93.1 fL (78.0-102.0); Mean Platelet Volume 9.3 fl (8.7-11.0); Platelet Count Result 150 K/mm3 (150-420); Red Blood Count 4.79 M/mm3 (4.70-6.10); Red Cell Distribution Width 13.2 % (11.6-14.4); White Blood Count 8.8 K/mm3 (4.8-10.8)
[2023-04-23 12:04] LABS: Occult Blood Negative (Negative)
[2023-04-23 12:12] LABS: Partial Thromboplastin Time 30.5 SEC (23.90-30.70); Prothrombin Time 10.6 Seconds (9.50-12.10)
[2023-04-23 12:18] LABS: Alanine Aminotransferase 29 U/L (16-63); Albumin Level 3.1 g/dL (3.4-5.0); Alkaline Phosphatase 101 U/L (46-116); Anion Gap 6 mmol/L (8-16); Aspartate Amino Transferase 33 U/L (15-37); Bilirubin,Total 0.8 mg/dL (0.00-1.00); Blood Urea Nitrogen 15 mg/dL (7-18); Calcium 8.8 mg/dL (8.5-10.1); Carbon Dioxide 31 mmol/L (21-32); Chloride 102 mmol/L (98-108); Estimated CRCL calculation 39 ml/min; Estimated Glomerular Filt Rate > 60; Glucose 111 mg/dL (70-99); Magnesium 1.9 mg/dL (1.8-2.4); Osmolality Calculated 289 mOsm/kg (285-295); Sodium 139 mmol/L (136-145)
[2023-04-23 12:26] LABS: Band Neutrophils Percent 2 % (0-6); Basophils Percent Manual 0 % (0-1); Eosinophils Absolute Manual 0.17 K/mm3 (0.02-0.5); Eosinophils Percent Manual 2 % (1-6); Lymphocytes Absolute Manual 1.23 K/mm3 (1.1-4.5); Lymphocytes Percent Manual 14 % (18-44); Monocytes Absolute Manual 1.14 K/mm3 (0.1-0.90); Monocytes Percent Manual 13 % (3-9); Neutrophils Absolute Manual 6.24 K/mm3 (1.3-6.7); Neutrophils Percent Manual 69 % (46-73); Platelet Estimate Adequate (Adequate); Total Cells Counted 100
[2023-04-23 12:30] VITALS: BP 131/70; PULSE 75; RESP 14; TEMP 36.9; O2SAT 99
[2023-04-23 13:22] VITALS: BP 140/70; PULSE 71; RESP 20; TEMP 36.8; O2SAT 98
== END 2023-04-23 13:25 | disposition home or self-care (01) ==
PROVIDERS: Emergency Provider Emergency Medicine; PCP Family Medicine
DX: K52.9 Noninfective gastroenteritis and colitis, unspecified (principal); I10 Essential (primary) hypertension; E78.5 Hyperlipidemia, unspecified; Z95.1 Presence of aortocoronary bypass graft; Z79.82 Long term (current) use of aspirin; Z79.891 Long term (current) use of opiate analgesic; Z87.891 Personal history of nicotine dependence
CPT/HCPCS: 36415; 74177; 80053; 82272; 83735; 85025; 85055; 85610; 85730; 99284; Q9967

== ENCOUNTER 2023-07-19 10:42 | Outpatient (CLI) | payer MEDICARE, SELFPAY ==
--- NOTE | ~2023-07-19 | XR_ITS ---
Right Knee Technique: AP, lateral, and sunrise views were obtained. Clinical History: Pain Findings: No fracture or dislocation is seen. Osseous alignment is anatomic. Minimal tricompartmental degenerative change noted. Chondrocalcinosis of the menisci noted. No joint effusion is seen. Impression: Minimal tricompartmental degenerative spurring. Chondrocalcinosis of the menisci. Reviewed, dictated and finalized at location . MER AND REINFORCER Impression: Minimal tricompartmental degenerative spurring. Chondrocalcinosis of the menisci.
== END 2023-07-19 10:43 | disposition home or self-care (01) ==
LOC: CHSIMG 10:45
PROVIDERS: PCP Family Medicine; Visit Provider Family Medicine
DX: M25.561 Pain in right knee (principal); M77.8 Other enthesopathies, not elsewhere classified; M11.261 Other chondrocalcinosis, right knee
CPT/HCPCS: 73562

== ENCOUNTER 2023-07-29 13:01 | Outpatient (CLI) | payer MEDICARE, SELFPAY ==
--- NOTE | 2023-07-29 13:16 | ECG_ITS ---
Measurements Intervals [place] Rate: 58 P: 60 VA: 167 QRS: -14 QRSD: 118 T: -32 QT: 422 QTc: 416 Interpretive Statements SINUS BRADYCARDIA WITH SINUS ARRHYTHMIA DELAYED PRECORDIAL R/S TRANSITION POSSIBLE LEFT VENTRICULAR HYPERTROPHY ST-T WAVE ABNORMALITY IN INFERIOR LEADS- CONSIDER ISCHEMIA ABNORMAL ECG COMPARED TO ECG 05/23/2021 10:19:14 SINUS BRADYCARDIA NOW PRESENT SINUS ARRHYTHMIA NOW PRESENT ST-T WAVE ABNORMALITY NOW PRESENT Electronically Signed On 07-29-2023 13:40:46 SELENIUM PLANT OPERATOR by Zia Vega D.O.
[2023-07-29 13:17] LABS: Basophils Absolute Auto 0.04 K/mm3 (0.00-0.10); Basophils Percent Auto 0.4 % (0.0-1.0); Eosinophils Absolute Auto 0.19 K/mm3 (0.02-0.50); Hematocrit 45.7 % (37.0-46.0); Hemoglobin 14.8 g/dL (12.4-15.3); Immature Granulocyte Absolute 0.11 K/mm3 (0.00-0.00); Immature Granulocyte Percent A 1.1 % (0.0-0.0); Lymphocytes Absolute Auto 1.22 K/mm3 (1.10-4.50); Lymphocytes Percent Auto 12.6 % (18.0-42.0); Mean Corpuscular HGB Conc 32.4 g/dL (32.0-36.0); Mean Corpuscular Hemoglobin 29.8 pg (27.0-31.0); Mean Platelet Volume 9.1 fl (8.7-11.0); Monocytes Absolute Auto 1.44 K/mm3 (0.10-0.90); Monocytes Percent Auto 14.8 % (2.0-11.0); Neutrophils Absolute Auto 6.7 K/mm3 (1.7-7.2); Neutrophils Percent Auto 69.1 % (50.0-70.0); Platelet Count Result 189 K/mm3 (150-420); Red Blood Count 4.97 M/mm3 (4.70-6.10); Red Cell Distribution Width 12.9 % (11.6-14.4); White Blood Count 9.7 K/mm3 (4.8-10.8)
[2023-07-29 13:19] LABS: Appearance Urine Clear (Clear); Bilirubin Urine Negative (Negative); Blood Urine Negative (Negative); Color Urine Yellow (Yellow); Glucose Urine UA Negative (Negative); Ketones Urine Negative (Negative); Leukocyte Esterase Ur Negative LEU/UL (Negative); Nitrate Urine Negative (Negative); Protein Urine Negative (Negative); Specific Grav Ur >= 1.030 (1.010-1.020)
[2023-07-29 13:30] LABS: Add Urine Microscopic? YES; Bacteria Urine None seen /hpf; RBC Urine None seen /hpf (0-2); WBC Urine None seen /hpf (0-3)
[2023-07-29 13:42] LABS: Alanine Aminotransferase 25 U/L (16-63); Albumin Level 3.3 g/dL (3.4-5.0); Alkaline Phosphatase 111 U/L (46-116); Anion Gap 6 mmol/L (8-16); Aspartate Amino Transferase 18 U/L (15-37); Bilirubin,Total 0.7 mg/dL (0.00-1.00); Blood Urea Nitrogen 21 mg/dL (7-18); Calcium 8.8 mg/dL (8.5-10.1); Carbon Dioxide 30 mmol/L (21-32); Chloride 103 mmol/L (98-108); Estimated Glomerular Filt Rate > 60; Glucose 98 mg/dL (70-99); Osmolality Calculated 291 mOsm/kg (285-295); Potassium 5.1 mmol/L (3.5-5.1); Sodium 139 mmol/L (136-145); Total Protein 5.8 g/dL (6.4-8.2)
[2023-07-29 13:54] LABS: CRP < 0.5 mg/dL (0.0-0.9)
[2023-07-29 14:16] LABS: Erythrocyte Sedimentation Rate 3 mm/hr (0-30)
== END 2023-07-29 13:02 | disposition home or self-care (01) ==
LOC: CHSLAB 13:04
PROVIDERS: PCP Family Medicine; Visit Provider Nurse Practitioner Family
DX: Z01.818 Encounter for other preprocedural examination (principal); R00.1 Bradycardia, unspecified; I49.8 Other specified cardiac arrhythmias; R94.31 Abnormal electrocardiogram [ECG] [EKG]
CPT/HCPCS: 36415; 80053; 81001; 85025; 85652; 86140; 93005

== ENCOUNTER 2023-12-09 14:40 | Outpatient (CLI) | payer MEDICARE, SELFPAY ==
--- NOTE | 2023-12-09 14:44 | ECHO_ITS ---
Patient Info Name: Beau Freeman Age: 88 years : 1935 Gender: Male Ht: 67 in Wt: 170 lbs BSA: 1.92 m2 HR: 78 bpm BP: 145 / 92 mmHg Technical Quality: Good Exam Date: 12/09/2023 2:39 PM Exam Location: Echo Lab Patient Status: Outpatient Admit Date: 12/09/2023 Staff Ordering Physician: Zia Vega DO Length Control Tester: Landy Urena RDCS Attending Provider: Zia Vega DO Referring Physician: Gary SHELTON; Exam Type: CA echo doppler color flow Study Info Indications - atherosclerosis of coronary artery by pass graft Complete two-dimensional, color flow and Doppler transthoracic echocardiogram is performed. Summary 1. Complete two-dimensional, color flow and Doppler transthoracic echocardiogram is performed. 2. Left ventricular chamber dimension is mildly enlarged. 3. There is mild concentric increased left ventricular wall thickness. 4. Left ventricular systolic function is moderately globally reduced, estimated at 40-45%. 5. Basal to apical posterior wall is thin and severely hypokinetic. 6. The left ventricular diastolic function is grade I diastolic dysfunction. 7. E/e' 9 is minimally elevated. 8. Left atrial chamber dimension is moderately enlarged. 9. There is moderate aortic valve sclerosis. 10. There is moderate aortic valve stenosis with a peak velocity of 235 cm/s, mean gradient of 13 mmHg, and aortic valve area of 0.9 cm2. 11. There is moderate to severe aortic valve regurgitation. 12. There is mild mitral valve regurgitation. 13. There is mild tricuspid valve regurgitation. 14. No pulmonary hypertension, estimated pulmonary arterial systolic pressure is 30 mmHg. 15. There is trace pulmonic regurgitation. Left Ventricle E/e' 9 is minimally elevated. Basal to apical posterior wall is thin and severely hypokinetic. Left ventricular systolic function is moderately globally reduced, estimated at 40-45%. Left ventricular chamber dimension is mildly enlarged. There is mild concentric increased left ventricular wall thickness. The left ventricular diastolic function is grade I diastolic dysfunction. Right Ventricle Right ventricular systolic function is normal and with normal TAPSE 2.8 cm. Right ventricular chamber dimension is normal. Left Atria Left atrial chamber dimension is moderately enlarged. Right Atria Right atrial chamber dimension is normal. Aortic Valve The aortic valve is trileaflet. There is moderate aortic valve sclerosis. There is moderate aortic valve stenosis with a peak velocity of 235 cm/s, mean gradient of 13 mmHg, and aortic valve area of 0.9 cm2. There is moderate to severe aortic valve regurgitation. Pulmonic Valve There is trace pulmonic regurgitation. Mitral Valve There is no mitral valve stenosis. There is mild mitral valve regurgitation. Tricuspid Valve There is mild tricuspid valve regurgitation. No pulmonary hypertension, estimated pulmonary arterial systolic pressure is 30 mmHg. Pericardium/Pleural There is no pericardial effusion. Inferior Vena Cava Normal inferior vena cava with >50% collapse upon inspiration consistent with normal right atrial pressure, 5 mmHg. Aorta The aortic root size at the sinus of Valsalva is normal. Left Ventricular Outflow Tract Name Value Normal LVOT 2D LVOT Diameter 2.0 cm LVOT
== END 2023-12-09 14:41 | disposition home or self-care (01) ==
LOC: CHSIMG 14:41
PROVIDERS: PCP Family Medicine; Visit Provider Internal Medicine Cardiovascular Disease
DX: I25.810 Atherosclerosis of coronary artery bypass graft(s) without angina pectoris (principal); I08.3 Combined rheumatic disorders of mitral, aortic and tricuspid valves
CPT/HCPCS: 93306

== ENCOUNTER 2024-02-06 09:38 | Outpatient (CLI) | payer MEDICARE, SELFPAY ==
--- NOTE | ~2024-02-06 | XR_ITS ---
XR shoulder RT min 2V 02/06/2024 10:02 Indication: Right shoulder pain Procedure: 4 views right shoulder Comparison: No prior studies for comparison. Findings: There are ossific density superior to the clavicle distally, possibly related to old trauma . There is anatomic alignment. No acute fracture identified. No foreign bodies. Impression: 1: Ossific densities superior to the distal aspect of the right clavicle, suspicious for sequela of r emote trauma. Reviewed, dictated and finalized at location B. Impression: 1: Ossific densities superior to the distal aspect of the right clavicle, suspi cious for sequela of remote trauma.
== END 2024-02-06 09:39 | disposition home or self-care (01) ==
LOC: CHSIMG 09:40
PROVIDERS: PCP Family Medicine; Visit Provider Family Medicine
DX: M25.511 Pain in right shoulder (principal)
CPT/HCPCS: 73030

== ENCOUNTER 2024-07-06 08:05 | Outpatient (CLI) | payer MEDICARE, SELFPAY ==
--- NOTE | 2024-07-06 08:17 | EST_ITS ---
Patient Info Name: Beau Freeman Age: 88 years : 1935 Gender: Male Ht: 65 in Wt: 179 lbs BSA: 1.95 m2 Exam Date: 07/06/2024 9:23 AM Patient Status: Outpatient Admit Date: 07/06/2024 Staff Ordering Physician: Zia Vega DO Attending Provider: Zia Vega DO Exam Type: CA stress patience w NM History/Risk Factors Hypertension: Yes Dyslipidemia: Yes Coronary Artery Disease (CAD) Yes Summary 1. 1. Negative lexiscan stress test for ischemic ST changes by ECG criteria. 2. 2. Stable hemodynamics throughout the test. 3. 3. Nuclear scan to follow and will be reported separately. Please correlate with it. Protocol: LEXISCAN Stress ECG Details Stage: REST Duration (min): 6 min : 54 sec HR (bpm): 52 SBP (mmHg): 127 DBP (mmHg): 70 Stage: REST Duration (min): 7 min : 46 sec HR (bpm): 52 SBP (mmHg): 127 DBP (mmHg): 70 Stage: STAGE 1 Duration (min): 0 min : 57 sec HR (bpm): 54 SBP (mmHg): 127 DBP (mmHg): 70 Stage: RECOVERY Duration (min): 0 min : 2 sec HR (bpm): 55 SBP (mmHg): 127 DBP (mmHg): 70 Stage: RECOVERY Duration (min): 1 min : 2 sec HR (bpm): 65 SBP (mmHg): 127 DBP (mmHg): 70 Stage: RECOVERY Duration (min): 2 min : 2 sec HR (bpm): 63 SBP (mmHg): 127 DBP (mmHg): 70 Stage: RECOVERY Duration (min): 3 min : 2 sec HR (bpm): 60 SBP (mmHg): 122 DBP (mmHg): 75 Stage: RECOVERY Duration (min): 4 min : 2 sec HR (bpm): 60 SBP (mmHg): 116 DBP (mmHg): 66 Stage: RECOVERY Duration (min): 5 min : 2 sec HR (bpm): 59 SBP (mmHg): 119 DBP (mmHg): 73 Stage: RECOVERY Duration (min): 6 min : 2 sec HR (bpm): 61 SBP (mmHg): 117 DBP (mmHg): 75 Stage: RECOVERY Duration (min): 6 min : 58 sec HR (bpm): --- SBP (mmHg): 117 DBP (mmHg): 75 Rest HR: 52 bpm Peak HR: 66 bpm Rest Sys BP: 127 mmHg Peak Sys BP: 122 mmHg Max Pred HR: 132 bpm % Max Pred HR: 50 % Target HR: 112 bpm Max RPP: 8,052 bpm*mmHg Termination Reason: Completed Protocol Total Time: 0 min : 58 sec Rest Mallory BP: 70 mmHg Peak Mallory BP: 75 mmHg Total Dose: 0.4 mg Resting ECG Sinus bradycardia, PRWP, ST-T wave abnormality in inferior leads- consider ischemia. Stress ECG No ST changes. Arrhythmias Occasional PVC's. Report Signatures
[2024-07-06 09:53] LABS: Alanine Aminotransferase 27 U/L (16-63); Albumin Level 3.5 g/dL (3.4-5.0); Alkaline Phosphatase 123 U/L (46-116); Anion Gap 6 mmol/L (4-12); Aspartate Amino Transferase 22 U/L (15-37); Blood Urea Nitrogen 15 mg/dL (7-18); Calcium 9.2 mg/dL (8.5-10.1); Carbon Dioxide 29 mmol/L (21-32); Chloride 104 mmol/L (98-108); Cholesterol 142 mg/dL (0-200); Estimated Glomerular Filt Rate 60; Glucose 91 mg/dL (70-99); HDL Direct 49 mg/dL (40-60); LDL Cholesterol Calculated 78 mg/dL (<130); Osmolality Calculated 288 mOsm/kg (285-295); Potassium 4.5 mmol/L (3.5-5.1); Sodium 139 mmol/L (136-145); Total Protein 5.8 g/dL (6.4-8.2); Triglycerides 73 mg/dL (0-150)
--- NOTE | 2024-07-06 13:48 | WPDCARIOSTRE ---
Nuclear Stress Test INDICATIONS Indications: Chest pain PROCEDURE Procedure Performed: Myocardial Perf Spect-Multi Procedure: Patient underwent a lexiscan stress test and immediately was injected with 33.8 mCi of cardiolyte. Multiple tomographic images were obtained. These are of good quality. There is evidence of a large, moderate anteroseptal, apical septal perfusion defect. In addition, there is a moderate size, moderate severity basal lateral perfusion defect with stress imaging. A separate resting images were obtained after patient was injected with 10.2 mCi of cardiolyte. Multiple tomographic images were obtained. These are of good quality. There is evidence of a moderate size, moderate severity basal lateral perfusion defect with rest imaging. CONCLUSION Conclusion: 1. Abnormal myocardial perfusion imaging demonstrating a large size, moderate severity anteroapical and apical septal perfusion defects during stress imaging consistent with reversible ischemia. There is a fixed basal lateral perfusion defect suggestive of prior infarct or scar. 2. Left ventriculogram demonstrates global hypokinesis with measured ejection fraction of 41%. 3. TID score 1.09 is normal.
== END 2024-07-06 08:06 | disposition home or self-care (01) ==
LOC: CHSCARD 08:06
PROVIDERS: PCP Family Medicine; Visit Provider Internal Medicine Cardiovascular Disease
DX: R07.9 Chest pain, unspecified (principal); E78.5 Hyperlipidemia, unspecified; R94.39 Abnormal result of other cardiovascular function study; Z95.1 Presence of aortocoronary bypass graft
CPT/HCPCS: 36415; 78452; 80053; 80061; 93017; A9502; J2785

== ENCOUNTER 2024-08-27 12:05 | Outpatient (CLI) | payer MEDICARE, SELFPAY ==
--- NOTE | ~2024-08-27 | XR_ITS ---
XR ankle LT min 3V Ordering provider: Doug Martinez MD History: . subacute cough, effusion left ankle . Comparison: None. FINDINGS: BONES: No acute fracture or dislocation. Calcaneus spur. JOINT SPACES: The ankle mortise is normal. SOFT TISSUES: Soft tissue swelling over the lateral malleolus. IMPRESSION: No definite acute osseous abnormality left ankle. Reviewed, dictated and finalized at location A. ET MACHINE OPERATOR
--- NOTE | ~2024-08-27 | XR_ITS ---
XR chest 2V Ordering provider: Doug Martinez MD History: 88 years Male with . subacute cough, effusion left ankle . Comparison: January 15, 2012 FINDINGS: MEDIASTINUM: The cardiac silhouette is not enlarged. Postoperative changes in the mediastinum. LUNGS: No effusions or pneumothorax. Bibasilar opacification suggestive of atelectasis versus pneumon ia. OTHER: No free air under the diaphragm. Degenerative spine. IMPRESSION: Bibasilar atelectasis versus pneumonia. Reviewed, dictated and finalized at location A. ICAL SAFETY SPECIALIST
[2024-08-27 12:50] LABS: Basophils Absolute Auto 0.07 K/mm3 (0.00-0.10); Basophils Percent Auto 0.7 % (0.0-1.0); Eosinophils Absolute Auto 0.26 K/mm3 (0.02-0.50); Eosinophils Percent Auto 2.7 % (1.0-6.0); Hematocrit 41.3 % (37.0-46.0); Hemoglobin 13.9 g/dL (12.4-15.3); Immature Granulocyte Absolute 0.07 K/mm3 (0.00-0.00); Immature Granulocyte Percent A 0.7 % (0.0-0.0); Lymphocytes Absolute Auto 1.24 K/mm3 (1.10-4.50); Mean Corpuscular HGB Conc 33.7 g/dL (32-36); Mean Corpuscular Hemoglobin 30.1 pg (27.0-31.0); Mean Corpuscular Volume 89.4 fL (78.0-102.0); Mean Platelet Volume 8.8 fl (8.7-11.0); Monocytes Absolute Auto 1.42 K/mm3 (0.10-0.90); Monocytes Percent Auto 14.9 % (2.0-11.0); Platelet Count Result 269 K/mm3 (150-420); Red Blood Count 4.62 M/mm3 (4.70-6.10); White Blood Count 9.6 K/mm3 (4.8-10.8)
[2024-08-27 12:53] LABS: Uric Acid 3.9 mg/dL (3.5-7.2)
[2024-08-27 13:04] LABS: D Dimer 1.31 mg/L (0.19-0.50)
[2024-08-28 12:18] LABS: Anion Gap 8 mmol/L (4-12); Blood Urea Nitrogen 13 mg/dL (7-18); Calcium 9.3 mg/dL (8.5-10.1); Carbon Dioxide 28 mmol/L (21-32); Chloride 102 mmol/L (98-108); Estimated Glomerular Filt Rate > 60; Glucose 93 mg/dL (70-99); Osmolality Calculated 286 mOsm/kg (285-295); Potassium 5.1 mmol/L (3.5-5.1); Sodium 138 mmol/L (136-145)
== END 2024-08-27 12:06 | disposition home or self-care (01) ==
LOC: CHSLAB 12:07
PROVIDERS: PCP Family Medicine; Visit Provider Family Medicine
DX: M25.472 Effusion, left ankle (principal); R60.0 Localized edema; R05.2 Subacute cough; R91.8 Other nonspecific abnormal finding of lung field
CPT/HCPCS: 36415; 71046; 73610; 80048; 84550; 85025; 85380

== ENCOUNTER 2024-08-28 08:21 | Outpatient (CLI) | payer MEDICARE, SELFPAY ==
--- NOTE | ~2024-08-28 | US_ITS ---
EXAMINATION: US venous doppler [facility] DATE: 08/28/2024 08:48 INDICATION: Left lower limb pain. TECHNIQUE: Grayscale ultrasound images without and with compression and Doppler ultrasound images of the left lower extremity veins were obtained. COMPARISON: None. FINDINGS: The visualized portions of left common femoral vein, profunda (deep) femoral vein, femoral vein, popl iteal vein, peroneal veins, posterior tibial veins, and greater saphenous vein outflow are patent. IMPRESSION: 1. No deep venous thrombosis. Reviewed, dictated and finalized at location A. F METEOROLOGIST
== END 2024-08-28 08:22 | disposition home or self-care (01) ==
PROVIDERS: PCP Family Medicine; Visit Provider Family Medicine
DX: R79.1 Abnormal coagulation profile (principal)
CPT/HCPCS: 93971

== ENCOUNTER 2025-01-05 11:31 | Outpatient (CLI) | payer MEDICARE, SELFPAY ==
--- NOTE | ~2025-01-05 | XR_ITS ---
Clinical Indication: Upper respiratory infection PA and lateral views of the chest: Comparison: 08/27/2024 Findings: Focal hazy opacity present peripheral right lung base.. Cardiomediastinal silhouette is st able, status post CABG. Bones and soft tissues are unremarkable. Impression: Probable focal hazy opacity peripheral right lung base. Focal pneumonia is a consideration. Reviewed, dictated and finalized at location . Impression: Probable focal hazy opacity peripheral right lung base. Focal pneumonia is a co nsideration.
--- OUTSIDE RECORDS SUMMARY | 2025-01-05 12:16 | XMS_ITS | Clinical Summary ---
Author Organization [facility] in [place] Address [address] [place] [address] Care Team Providers Care Surgical Technologist Name Role Phone Doug Martinez MD Primary Care Provide r Allergies Active Allergy Reactions Criticality Noted Date Comments Aspirin Stomach upset,Other (See comments) Low 01/06/2016 Stomach pain Ibuprofen Stomach upset,Other (See comments) Low 01/06/2016 Stomach pain Medications clopidogrel (PLAVIX) 75 mg tablet take 1 tablet by oral route every day 0 0 6 Active Additional Information Patient not taking.Reported on 02/18/2024 losartan (COZAAR) 100 mg tablet take 1 tablet by oral route every day 0 0 6 Active Additional Information Patient not taking.Reported on 02/18/2024 atorvastatin (LIPITOR) 80 mg tablet take 1 tablet by oral route every day 0 0 6 Active amLODIPine (NORVASC) 5 mg tablet take 1 tablet by oral route every day 0 0 6 Active traMADol (ULTRAM) 50 mg tablet take 1 tablet by oral route every 6 hours as needed 0 0 6 Active metoprolol (LOPRESSOR) 50 mg tablet take 1 tablet by oral route 2 times every day with meals 0 0 6 Active finasteride (PROSCAR) 5 mg tablet 4 Active irbesartan (AVAPRO) 300 mg tablet Take 1 tablet (300 mg total) by mouth daily Active tamsulosin (FLOMAX) 0.4 mg extended release capsule Take 1 capsule (0.4 mg total) by mouth daily [address] (PROTONIX) 40 mg EC tablet 4 Active Active Problems Problem Noted Date Diagnosed Date Hyperlipidemia 02/18/2024 Hypertension 02/18/2024 Low back pain 12/24/2016 S/P CABG x 3 06/08/2016 Lumbar spinal stenosis 01/18/2016 CHF (congestive heart failure) 11/10/2010 Coronary atherosclerosis of [place] coronary angie ry 11/10/2010 RLS (restless legs syndrome) 11/10/2010 Medical History Medical History Date Comments Hx Other Medical 1994 Open heart surg dona Myocardial infarction (HCC) Myoc ardial infarction Hyperlipidemia Hyperlipidemia Hypertension Hypertension Family History Medical History Relation Name Comments Heart disease Other Family history of Heart disease; Relation Name Status Comments Other Social History Tobacco Use Types Packs/Day Years Used Date Smoking Tobacco: Never Assessed Sex and Gender Information Value Date Recorded Sex Assigned at Not on file Legal Sex Male 7:31 PM BOILER ASSISTANT OPERATOR Gender Identity Not on file Sexual Orientation Not on file Obstetrics History Last Filed Vital Signs Vital Sign Reading Time Taken Comments Blood Pressure 150/85 07/10/2016 10:58 AM BOILER ASSISTANT OPERATOR Pulse 57 07/10/2016 10:58 AM BOILER ASSISTANT OPERATOR Temperature - - Respiratory Rate - - Oxygen Saturation - - Inhaled Oxygen Concentration - - Weight 84.8 kg (187 lb) 07/10/2016 10:58 AM BOILER ASSISTANT OPERATOR Height - - Body Mass Index - - Plan of Treatment Health Maintenance Due Date Last Done Comments Depression Screening 1935 Fall Risk Assessment 1935 DTaP/Tdap/Td Vaccine (1 - Tdap) 11/12/1946 Hepatitis B Screening 11[birth year]12/1953 Well Visit 65+ 11/12/2000 Pneumococcal vaccine 65+ (2 of 2 - PPSV23) 06/13/2021 06/13/2020, 03/25/2007 Covid-19 Vaccine ( - 2023-2 5 season) 2024 06/22/2022, 07/11/2021, 10/28/2020, Additional history exists Influenza Vaccine (#1) 2024 3, 07/18/2022, 06/30/2019, Additional history exists Zoster Vaccine Completed 07/02/2019, 04/27/[address] [facility] MEDIC[facility] [employer]AGE [address] [id number] Care Teams Surgical Technologist Relationship Specialty Start Date End Date Doug Martinez MD [address] [place] [address] PCP - General Family Medicine 02/18/24
--- OUTSIDE RECORDS SUMMARY | 2025-01-05 12:16 | XMS_ITS | Clinical Summary ---
Author Organization [facility] Address [address] [place] [address] Phone Care Team Providers Care Stock Blender Name Role Phone Doug Martinez MD Primary Care Provider [phone] Allergies Active Allergy Reactions Criticality Noted Date Comments Aspirin Other (see Comments) 01/06/2016 Stomach pain Ibuprofen Other (see Comments) 01/06/2016 Stomach pain Medications amLODIPine (NORVASC) 5 MG Tablet Take 5 mg by mouth 2 times daily. Active atorvastatin (LIPITOR) 80 MG Tablet Take 80 mg by mouth daily. Active clopidogrel (PLAVIX) 75 MG Tablet Take 75 mg by mouth daily. Active losartan (COZAAR) 100 MG Tablet Take 100 mg by mouth daily. Active metoprolol tartrate (LOPRESSOR) 50 MG Tablet Take 50 mg by mouth 2 times daily. Active pantoprazole (PROTONIX) 40 MG Pack Take 40 mg by mouth daily. Active traMADol (ULTRAM) 50 MG Tablet Take 100 mg by mouth 2 times daily. Active acetaminophen (TYLENOL) 325 MG Tablet Take 1 Tab by mouth every 6 hours as needed for Pain or Fever (for temperature greater than 100.4 F). Do not exceed 4000 mg of acetaminophen in 24 hour from all sources. 6 Active [place]-3 Fatty Acids (FISH OIL PO) Take 1 Tab by mouth daily. Active Active Problems Problem Noted Date Diagnosed Date Low back pain 12/24/2016 Lumbar spinal stenosis 01/18/2016 Coronary atherosclerosis of [place] coronary angie ry 11/10/2010 CHF (congestive heart failure) 11/10/2010 RLS (restless legs syndrome) 11/10/2010 Immunizations Immunization Administration Dates Next Due Influenza Vaccine greater than 3 yrs 06/30/2019 Pneumococcal Vaccine - 13 Valent 03/25/2007 Family History Medical History Relation Name Comments Heart Disease Brother Aneurysm Father Heart Attack Mother Relation Name Status Comments Brother Father Mother Social History Tobacco Use Types Packs/Day Years Used Date Smoking Tobacco: Former Cigarettes Q uit: 01/06/1956 Smokeless Tobacco: Never Alcohol Use Standard Drinks/Week Comments No 0 (1 standard drink = 0.6 oz pur e alcohol) Sex and Gender Information Value Date Recorded Sex Assigned at Not on file Legal Sex Male 12:29 AM CDT Gender Identity Not on file Sexual Orientation Not on file Last Filed Vital Signs Vital Sign Reading Time Taken Comments Blood Pressure 110/70 09/26/2016 2:40 PM GARAGE CONSTRUCTION EQUIPMENT MECHANIC Pulse 52 09/26/2016 2:40 PM GARAGE CONSTRUCTION EQUIPMENT MECHANIC Temperature 35.9 C (96.6 F) 09/26/2016 2:40 PM GARAGE CONSTRUCTION EQUIPMENT MECHANIC Respiratory Rate 16 09/26/2016 2:40 PM GARAGE CONSTRUCTION EQUIPMENT MECHANIC Oxygen Saturation 97% 09/26/2016 2:40 PM GARAGE CONSTRUCTION EQUIPMENT MECHANIC Inhaled Oxygen Concentration - - Weight 86.2 kg (190 lb) 08/07/2016 1:00 PM GARAGE CONSTRUCTION EQUIPMENT MECHANIC Height 172.7 cm (5' 8 ) 08/07/2016 1:00 PM GARAGE CONSTRUCTION EQUIPMENT MECHANIC Body Mass Index 28.89 08/07/2016 1:00 PM GARAGE CONSTRUCTION EQUIPMENT MECHANIC Plan of Treatment Health Maintenance Due Date Last Done Comments Hepatitis C Virus (HCV) Screening 1935 TdaP Immunization 1935 Respiratory Syncytial Virus (RSV) Immunization (Adult) (1 - 1-dose 75+ series) 11/12/2010 Pneumococcal Immunization (50+ years) (2 of 2 - PPSV23) 06/13/2021 06/13/2020, 03/25/2007 Influenza Immunization (#1) 05/03/202408/02, 07/18/2022, 06/30/2019, Additional history exists SARS-COV-2 Immunization (2023- season) 2024 06/22/2022, 07/11/2021, 10/28/2020, Additional history exists Zoster Immunization Completed 07/02/2019, 9 Pneumococcal Immunization Combined Discontinued 06/13/2020, 03/25/2007 Hepatitis B Immunization Aged Out No longer eligible based on patient's age to complete this topic Meningococcal Immunization (ACWY) Aged Out No longer eligible based on patient's age to complete this topic Rotavirus Immunization Aged Out No lo nger eligible based on patient's age to complete this topic Insurance MEDICARE MEDICARE C [employer] Care Teams Stock Blender Relationship Specialty Start Date End Date Doug Martinez MD [address] [place] [address] PCP - General Pediatrics 11/05/23
--- OUTSIDE RECORDS SUMMARY | 2025-01-05 12:16 | XMS_ITS | Clinical Summary ---
Author Organization [facility] Address [address] [place] [address] Care Team Providers Care Steam Train Driver Name Role Phone Ambulatory, Nonhospital Cred Provider DC Delong ilable Unavailable Doug Martinez MD Primary Care Provider [phone] Hoang Crowe MD Unavailable [phone] Paz Mcgee MD Unavailable Allergies Active Allergy Reactions Criticality Noted Date Comments Aspirin GI Upset,Other (see comment) 016 Stomach pain Ibuprofen GI Upset 06/02/2016 Medications amlodipine 5 MG tablet Take 1 tablet by mouth 2 (two) times a day. 02/24/2015 Active atorvastatin (LIPITOR) 80 MG tablet Take 1 tablet by mouth daily. 02/24/2015 Active metoprolol tartrate 50 MG tablet Take 1 tablet by mouth 2 (two) times daily. 02/24/2015 Active Multiple Vitamins-Minera ls (MULTIVITAMIN ADULT OR) Take by mouth daily. 11/29/2005 Active clopidogrel 75 MG tablet TK 1 T PO D 1 04/02/2016 Active pantoprazole (PROTONIX) 40 MG tablet Take 1 tablet by mouth daily. 02/24/2015 Active traMADol 50 MG tablet Take 50 mg by mouth every 6 (six) hours as needed for Pain (take 2 tablets twice a day). Active tamsulosin 0.4 MG Cap Take 1 capsule by mouth daily. 3 06/25/2017 Active aspirin EC (ASPIRIN) 81 MG EC tablet Take 81 mg by mouth daily. Active irbesartan 300 MG tablet Take 300 mg by mouth daily. Active NITROGLYCERIN 0.4 MG/HR PLACE 1 PATCH ON SKIN DAILY. 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 S/P drug eluting coronary stent placement 2015 CAD (coronary artery disease) Hyperlipidemia Hypertension Immunizations Immunization Administration Dates Next Due MODERNA COVID-19 (12+) MRNA, LNP-S, PF, 100 MCG/ 0.5 ML DOSE 10/28/2020,09/30/2020 Family History Medical History Relation Comments Heart Attack Brother Heart Attack Mother Relation Status Comments Brother Hx NE Father (Age 70) TIA, aneurysm Mother (Age 83) [place] Social History Tobacco Use Types Packs/Day Years Used Date Smoking Tobacco: Former Cigarettes Q uit: 1961 Smokeless Tobacco: Never Alcohol Use Standard Drinks/Week Comments No 0 (1 standard drink = 0.6 oz pur e alcohol) Sex and Gender Information Value Date Recorded Sex Assigned at Not on file Legal Sex Male 2:08 AM CDT Gender Identity Not on file Sexual Orientation Not on file 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 file Not on file No t on file Not on file Not on file Not on file Not on file Last Filed Vital Signs Vital Sign Reading Time Taken Comments Blood Pressure 143/74 06/26/2021 12:06 PM CDT 138/72 lt arm Pulse 75 06/26/2021 12:06 PM CDT Temperature 35.9 C (96.7 F) 06/26/2021 12:06 PM CDT Respiratory Rate 20 06/26/2021 12:0 6 PM CDT Oxygen Saturation 98% 06/26/2021 12: 06 PM CDT Inhaled Oxygen Concentration - - Weight 77.5 kg (170 lb 13.7 oz) 06/26/2021 12:06 PM CDT Height 170.2 cm (5' 7 ) 06/26/2021 12:0 6 PM CDT Body Mass Index 26.76 06/26/2021 12:06 PM CDT Plan of Treatment Health Maintenance Due Date Last Done Comments ASCVD Statin 1935 DTaP, Tdap and Td Vaccines ( 1 - Tdap) 11[birth year]12/1954 Annual Medicare Wellness Visit 11/12/2000 RSV Immunization or 60+ Years (1 - 1-dose 75+ series) 11/12/2010 ASCVD LDL 08/22/2018 08/22/2017, 09/09/2008 Pneumococcal Vaccine: 50+ Years (2 of 2 - PPSV23) 08/08/2020 06/13/2020, 03/25/2007 COVID-19 Vaccine (3 - 2023-2 5 season) 2024 10/28/2020, 09/30/2020 Zoster Vaccines Completed 07/02/2019, 04/27/2019 Meningococcal B Vaccine Aged Out No l onger eligible based on patient's age to complete this topic Meningococcal Vaccine Aged Out No salvador vincent eligible based on patient's age to complete this topic RSV Immunizations Under 20 Months Aged Out No longer eligible b ased on patient's age to complete this topic Procedures Procedure Name Priority Date/Time Associated Diagnosis Comments LIPID PANEL EXTENDED TIMED 08/22/2017 5:11 AM BRICK MASON from Last 3 Months or Most Recently Relevant to Health Maintenance Results * (ABNORMAL) LIPID PANEL EXTENDED (08/22/2017 5:11 AM BRICK MASON) HDL 33(L) >39 MG/DL 08/22/2017 8:00 AM [facility] Comment:LOW: <40 LIPOPROTEIN (A) 90(H) 0 - 30 MG/DL 08/22/2017 8:00 AM [facility] DIRECT LDL 72 0 - 129 MG/DL 08/22/2017 8:00 AM [facility] Comment:<100 OPTIMAL CHOLESTEROL 125 0 - 200 MG/DL 08/22/2017 8:00 AM [facility] Comment:DESIRABLE: <200 TRIGLYCERIDES 97 0 - 149 MG/DL 08/22/2017 8:00 AM [facility] Comment:<150 NORMAL VLDL CALCULATION 20 MG/DL 08/22/20 17 8:00 AM [facility] CHOL/HDL RATIO 3.8 08/22/2017 8:00 AM [facility] LDL/HDL 2.2 08/22/2017 8:00 AM [facility] APOLIPOPROTEIN B 66 54 - 163 MG/DL 08/22/2017 8:00 AM [facility] NON HDL CHOLESTEROL 92 MG/DL 08/22/2017 8:00 AM [facility] HOMOCYSTEINE (U) 10 MCMOL/L 08/22/20 17 7:17 AM [facility] HOMOCYSTINE NORMALS NORMAL LEVEL IS LESS THAN OR EQUAL TO 9 08/22/2017 1:05 AM [facility] Comment: MILD IS 10 TO 15 UMOL/L MODERATE IS 16 TO 30 UMOL/L MODERATE TO SEVERE IS 31 TO 100 UMOL/L SEVERE IS GREATER THAN 100 UMOL/L PLASMA SPECIMEN / Unknown 08/22/2017 5:11 AM BRICK MASON 08/22/2017 6:23 AM BRICK MASON us Generic Conversion Md [facility] Final R esult [facility] [address] [place] [address], [id number] from Last 3 Months or Most Recently Relevant to Health Maintenance Insurance [facility] Advance Directives Documents on File Type Date Recorded Patient Party Planner Expl anation Advance Directives and Living Will 09/27/2017 LIVING WILL Advance Directives and Living Will 08/21/2017 LIVING WILL * Full Code (Latest Code Status on File) Date Activated Date Inactivated Comments 06/26/2021 2:36 PM 06/26/2021 7:39 PM Care Teams Steam Train Driver Relationship Specialty Start Date End Date Doug Martinez MD [address] [place] [address] PCP - General FAMILY PRACTICE 02/15/20 Ambulatory, Nonhospital Cred Provider, APNP Nurse Practitioner INTERNAL MEDICINE 06/14/16 Hoang Crowe MD [address] [place] [address] Surgeon SURGERY 06/27/21 Paz Mcgee MD [address] [place] [address] Consulting Physician CARDIOVASCULAR DISEASE 02/06/22
--- OUTSIDE RECORDS SUMMARY | 2025-01-05 12:16 | XMS_ITS | Referral Summary ---
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 Lumbar spinal stenosis 01/18/2016 CHF (congestive heart failure) 11/10/2010 Coronary atherosclerosis of [place] coronary angie ry 11/10/2010 RLS (restless legs syndrome) 11/10/2010 Social History Tobacco Use Types Packs/Day Years Used Date Smoking Tobacco: Never Assessed Sex and Gender Information Value Date Recorded Sex Assigned at Not on file Legal Sex Male 7:31 PM EXTERMINATOR Gender Identity Not on file Sexual Orientation Not on file Last Filed Vital Signs Vital Sign Reading Time Taken Comments Blood Pressure 150/85 07/10/2016 10:58 AM EXTERMINATOR Pulse 57 07/10/2016 10:58 AM EXTERMINATOR Temperature - - Respiratory Rate - - Oxygen Saturation - - Inhaled Oxygen Concentration - - Weight 84.8 kg (187 lb) 07/10/2016 10:58 AM EXTERMINATOR Height - - Body Mass Index - - Plan of Treatment Not on file Insurance Care Teams Reinforced Steel Placing Supervisor Relationship Specialty Start Date End Date Doug Martinez MD [address] [place] [address] PCP - General Family Medicine 02/18/24
== END 2025-01-05 11:32 | disposition home or self-care (01) ==
LOC: CHSIMG 11:33
PROVIDERS: PCP Family Medicine; Visit Provider Family Medicine
DX: J06.9 Acute upper respiratory infection, unspecified (principal); R91.8 Other nonspecific abnormal finding of lung field
CPT/HCPCS: 71046

== ENCOUNTER 2025-01-15 10:24 | Outpatient (CLI) | payer MEDICARE, SELFPAY ==
--- NOTE | ~2025-01-15 | XR_ITS ---
XR chest 2V 01/15/2025 10:49 Indication: Pneumonia follow-up Procedure: 2 view chest Comparison: Comparison to multiple prior studies sequentially, with oldest reviewed study dated 01/14. Findings: There are chronic bibasilar infiltrates with air unchanged dating back to 08/27/2024, likel y atelectasis/scarring. Prior heart size normal. Status post median sternotomy for CABG. There is ath erosclerosis. No edema, significant effusion or pneumothorax. Impression: 1: Chronic bibasilar infiltrates unchanged from 08/27/2024, likely atelectasis/scarring. Reviewed, dictated and finalized at location A. Impression: 1: Chronic bibasilar infiltrates unchanged from 08/27/2024, likely atelectasis/ scarring.
--- OUTSIDE RECORDS SUMMARY | 2025-01-15 10:33 | XMS_ITS | Clinical Summary ---
Author Organization [facility] Address [address] [place] [address] Phone Care Team Providers Care Damage Adjuster Name Role Phone Doug Martinez MD Primary Care Provider [phone] Allergies Active Allergy Reactions Criticality Noted Date [...] 24 hour from all sources. 6 Active [place]-3 Fatty Acids (FISH OIL PO) Take 1 Tab by mouth daily. Active Active Problems Problem Noted Date Diagnosed Date Low back pain 12/24/2016 Lumbar spinal stenosis 01/18/2016 Coronary atherosclerosis of [place] coronary angie ry 11/10/2010 CHF (congestive heart [...] Comments Blood Pressure 110/70 09/26/2016 2:40 PM SQUIRT MACHINE OPERATOR Pulse 52 09/26/2016 2:40 PM SQUIRT MACHINE OPERATOR Temperature 35.9 C (96.6 F) 09/26/2016 2:40 PM SQUIRT MACHINE OPERATOR Respiratory Rate 16 09/26/2016 2:40 PM SQUIRT MACHINE OPERATOR Oxygen Saturation 97% 09/26/2016 2:40 PM SQUIRT MACHINE OPERATOR Inhaled Oxygen Concentration - - Weight 86.2 kg (190 lb) 08/07/2016 1:00 PM SQUIRT MACHINE OPERATOR Height 172.7 cm (5' 8 ) 08/07/2016 1:00 PM SQUIRT MACHINE OPERATOR Body Mass Index 28.89 08/07/2016 1:00 PM SQUIRT MACHINE OPERATOR Plan of Treatment Health Maintenance Due Date [...] Insurance MEDICARE MEDICARE C [employer] Care Teams Damage Adjuster Relationship Specialty Start Date End Date Doug Martinez MD [address] [place] [address] PCP - General Pediatrics 11/05/23
--- OUTSIDE RECORDS SUMMARY | 2025-01-15 10:33 | XMS_ITS | Clinical Summary ---
Author Organization [facility] [place] Address [address] [address] Care Team Providers Care Playroom Attendant Name Role Phone Doug Martinez MD Primary [...] (congestive heart failure) 11/10/2010 Coronary atherosclerosis of [place] coronary angie ry 11/10/2010 RLS (restless legs [...] on file Legal Sex Male 7:31 PM SADDLE AND SIDE WIRE STITCHER Gender Identity Not on file Sexual Orientation Not on file Obstetrics History Last Filed Vital Signs Vital Sign Reading Time Taken Comments Blood Pressure 150/85 07/10/2016 10:58 AM SADDLE AND SIDE WIRE STITCHER Pulse 57 07/10/2016 10:58 AM SADDLE AND SIDE WIRE STITCHER Temperature - - Respiratory Rate - - Oxygen Saturation - - Inhaled Oxygen Concentration - - Weight 84.8 kg (187 lb) 07/10/2016 10:58 AM SADDLE AND SIDE WIRE STITCHER Height - - Body Mass Index - [...] 07/11/2021, 10/28/2020, Additional history exists Influenza Vaccine (Season Ended) 2025 08/13/2023, 07/18/2022, 06/30/2019, Additional history exists Zoster Vaccine Completed 07/02/2019, 04/27/2019 Insurance [facility] [employer] [address] [id number] Care Teams Playroom Attendant Relationship Specialty Start Date End Date Doug Martinez MD [address] [place] [address] PCP - General Family Medicine 02/18/24
--- OUTSIDE RECORDS SUMMARY | 2025-01-15 10:33 | XMS_ITS | Referral Summary ---
Author Organization [facility] [place] Address [address] [place] [address] Care Team Providers Care Sports Media Name Role Phone Doug Martinez MD Primary [...] (congestive heart failure) 11/10/2010 Coronary atherosclerosis of [place] coronary angie ry 11/10/2010 RLS (restless legs syndrome) 11/10/2010 Social History Tobacco Use Types Packs/Day Years Used Date Smoking Tobacco: Never Assessed Sex and Gender Information Value Date Recorded Sex Assigned at Not on file Legal Sex Male 7:31 PM STRAWHAT SIZER Gender Identity Not on file Sexual Orientation Not on file Last Filed Vital Signs Vital Sign Reading Time Taken Comments Blood Pressure 150/85 07/10/2016 10:58 AM STRAWHAT SIZER Pulse 57 07/10/2016 10:58 AM STRAWHAT SIZER Temperature - - Respiratory Rate - - Oxygen Saturation - - Inhaled Oxygen Concentration - - Weight 84.8 kg (187 lb) 07/10/2016 10:58 AM STRAWHAT SIZER Height - - Body Mass Index - - Plan of Treatment Not on file Insurance Care Teams Sports Media Relationship Specialty Start Date End Date Doug Martinez MD [address] [place] [address] PCP - General Family Medicine 02/18/24
--- OUTSIDE RECORDS SUMMARY | 2025-01-15 10:33 | XMS_ITS | Clinical Summary ---
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 Not on file No [...] LIPID PANEL EXTENDED TIMED 08/22/2017 5:11 AM VETERAN APPEALS REVIEWER from Last 3 Months or Most Recently Relevant to Health Maintenance Results * (ABNORMAL) LIPID PANEL EXTENDED (08/22/2017 5:11 AM VETERAN APPEALS REVIEWER) HDL 33(L) >39 MG/DL 08/22/2017 8:00 AM [facility] Comment:LOW: <40 LIPOPROTEIN (A) 90(H) 0 - 30 MG/DL 08/22/2017 8:00 AM [facility] DIRECT LDL 72 0 - 129 MG/DL 08/22/2017 8:00 AM [facility] Comment:<100 OPTIMAL CHOLESTEROL 125 0 - 200 MG/DL 08/22/2017 8:00 AM [facility] Comment:DESIRABLE: <200 TRIGLYCERIDES 97 0 - 149 MG/DL 08/22/2017 8:00 AM [facility] Comment:<150 NORMAL VLDL CALCULATION 20 MG/DL 08/22/20 17 8:00 AM [facility] CHOL/HDL RATIO 3.8 08/22/2017 8:00 AM [facility] LDL/HDL 2.2 08/22/2017 8:00 AM [facility] APOLIPOPROTEIN B 66 54 - 163 MG/DL 08/22/2017 8:00 AM [facility] NON HDL CHOLESTEROL 92 MG/DL 08/22/2017 8:00 AM [facility] HOMOCYSTEINE (U) 10 MCMOL/L 08/22/20 17 7:17 AM [facility] HOMOCYSTINE NORMALS NORMAL LEVEL IS LESS THAN OR EQUAL TO 9 08/22/2017 1:05 AM [facility] Comment: MILD IS 10 TO 15 UMOL/L MODERATE IS 16 TO 30 UMOL/L MODERATE TO SEVERE IS 31 TO 100 UMOL/L SEVERE IS GREATER THAN 100 UMOL/L PLASMA SPECIMEN / Unknown 08/22/2017 5:11 AM VETERAN APPEALS REVIEWER 08/22/2017 6:23 AM VETERAN APPEALS REVIEWER us Generic Conversion Md [facility] Final R esult [facility] [address] [place] [address], [id number] from Last 3 Months or Most Recently Relevant to Health Maintenance Insurance [facility] Advance Directives Documents on File Type Date Recorded Patient Powderer Expl anation Advance Directives and Living Will 09/27/2017 LIVING WILL Advance Directives and Living Will 08/21/2017 LIVING WILL * Full Code (Latest Code Status on File) Date Activated Date Inactivated Comments 06/26/2021 2:36 PM 06/26/2021 7:39 PM Care Teams Casino Cage Cashier Relationship Specialty Start Date End Date Doug Martinez MD [address] [place] [address] PCP - General FAMILY PRACTICE 02/15/20 Ambulatory, Nonhospital Cred Provider, APNP Nurse Practitioner INTERNAL MEDICINE 06/14/16 Hoang Crowe MD [address] [place] [address] Surgeon SURGERY 06/27/21 Paz Mcgee MD [address] [place] [address] Consulting Physician CARDIOVASCULAR DISEASE 02/06/22
== END 2025-01-15 10:25 | disposition home or self-care (01) ==
LOC: CHSIMG 10:32
PROVIDERS: PCP Family Medicine; Visit Provider Family Medicine
DX: J18.9 Pneumonia, unspecified organism (principal); R91.8 Other nonspecific abnormal finding of lung field
CPT/HCPCS: 71046

== ENCOUNTER 2025-01-26 12:34 | Outpatient (CLI) | payer MEDICARE, SELFPAY ==
--- NOTE | ~2025-01-26 | CT_ITS ---
CT Scan of the Chest without Contrast: Clinical Indication: Pneumonia Technique: Contiguous sections were acquired throughout the chest without intravenous contrast. Dose reduction technique was used on this scan by utilizing automated exposure control and iterative recon struction technique. The dose-length product (DLP) was 321.52 mGy-cm. Findings: There is no evidence of any significant mediastinal, hilar or axillary lymphadenopathy. There are ext ensive atherosclerotic calcifications of the aorta and coronary arteries. There is no evidence of pleural or pericardial effusion. Possible minimal bibasilar peripheral chronic interstitial changes. No suspicious pulmonary nodule or consolidation. Images through the upper abdomen reveal no abnormalities. Impression: Probable minimal bibasilar chronic interstitial change. Reviewed, dictated and finalized at location . Impression: Probable minimal bibasilar chronic interstitial change.
--- OUTSIDE RECORDS SUMMARY | 2025-01-26 12:37 | XMS_ITS | Clinical Summary ---
Author Organization [facility] Address [address] [place] [address] Phone Care Team Providers Care Tunnel Drier Operator Name Role Phone Doug Martinez MD Primary Care Provider Allergies Active Allergy Reactions Criticality Noted Date [...] 24 hour from all sources. 6 Active [place]-3 Fatty Acids (FISH OIL PO) Take 1 Tab by mouth daily. Active Active Problems Problem Noted Date Diagnosed Date Low back pain 12/24/2016 Lumbar spinal stenosis 01/18/2016 Coronary atherosclerosis of [place] coronary angie ry 11/10/2010 CHF (congestive heart [...] Comments Blood Pressure 110/70 09/26/2016 2:40 PM HAND WOVEN CARPET AND RUG MENDER Pulse 52 09/26/2016 2:40 PM HAND WOVEN CARPET AND RUG MENDER Temperature 35.9 C (96.6 F) 09/26/2016 2:40 PM HAND WOVEN CARPET AND RUG MENDER Respiratory Rate 16 09/26/2016 2:40 PM HAND WOVEN CARPET AND RUG MENDER Oxygen Saturation 97% 09/26/2016 2:40 PM HAND WOVEN CARPET AND RUG MENDER Inhaled Oxygen Concentration - - Weight 86.2 kg (190 lb) 08/07/2016 1:00 PM HAND WOVEN CARPET AND RUG MENDER Height 172.7 cm (5' 8) 08/07/2016 1:00 PM HAND WOVEN CARPET AND RUG MENDER Body Mass Index 28.89 08/07/2016 1:00 PM HAND WOVEN CARPET AND RUG MENDER Plan of Treatment Health Maintenance Due Date [...] Insurance MEDICARE MEDICARE C [employer] Care Teams Tunnel Drier Operator Relationship Specialty Start Date End Date Doug Martinez MD [address] [place] [address] PCP - General Pediatrics 11/05/23
--- NOTE | 2025-01-26 12:39 | ECHO_ITS ---
Patient Info Name: Beau Freeman Age: 89 years : 1935 Gender: Male Ht: 67 in Wt: 170 lbs BSA: 1.92 m2 HR: 60 bpm BP: 173 / 73 mmHg Heart Rhythm: Sinus Rhythm Technical Quality: Good Exam Date: 01/26/2025 1:01 PM Patient Status: O Admit Date: 01/26/2025 Exam Type: CA echo doppler color flow Complete two-dimensional, color flow and Doppler transthoracic echocardiogram is performed. Passenger Train Braker: Berta Paz Attending Provider: Zia Vega DO Summary 1. Complete two-dimensional, color flow and Doppler transthoracic echocardiogram is performed. 2. Left ventricular chamber dimension is normal. 3. Left ventricular systolic function is mildly reduced, estimated at 45-50. 4. There is mild concentric increased left ventricular wall thickness. 5. The left ventricular diastolic function is normal. 6. E/e' 6 is not elevated. 7. Left atrial chamber dimension is moderately enlarged. 8. There is moderate aortic valve sclerosis. 9. There is mild to moderate aortic valve stenosis with a peak velocity of 275 cm/s, mean gradient of 16 mmHg, and aortic valve area of 1.3 cm2. 10. There is mild to moderate aortic valve regurgitation. 11. There is trace mitral valve regurgitation. 12. There is mild tricuspid valve regurgitation. 13. No pulmonary hypertension, estimated pulmonary arterial systolic pressure is 23 mmHg. Left Ventricle E/e' 6 is not elevated. Left ventricular chamber dimension is normal. Left ventricular systolic function is mildly reduced, estimated at 45-50. There is mild concentric increased left ventricular wall thickness. The left ventricular diastolic function is normal. Right Ventricle Right ventricular chamber dimension is normal. Right ventricular systolic function is normal. Left Atria Left atrial chamber dimension is moderately enlarged. Right Atria Right atrial chamber dimension is normal. Aortic Valve The aortic valve is trileaflet. There is moderate aortic valve sclerosis. There is mild to moderate aortic valve stenosis with a peak velocity of 275 cm/s, mean gradient of 16 mmHg, and aortic valve area of 1.3 cm2. There is mild to moderate aortic valve regurgitation. Pulmonic Valve There is no pulmonic regurgitation. Mitral Valve There is no mitral valve stenosis. There is trace mitral valve regurgitation. Tricuspid Valve There is mild tricuspid valve regurgitation. No pulmonary hypertension, estimated pulmonary arterial systolic pressure is 23 mmHg. Pericardium/Pleural There is no pericardial effusion. Inferior Vena Cava Normal inferior vena cava with >50% collapse upon inspiration consistent with normal right atrial pressure, 5 mmHg. Aorta The aortic root size at the sinus of Valsalva is normal. Left Ventricular Outflow Tract Name Value Normal LVOT 2D LVOT Diameter 1.9 cm LVOT Doppler LVOT Peak Velocity 121 cm/s LVOT Peak Gradient 5 mmHg LVOT Mean Gradient 3 mmHg LVOT VTI 26 cm LVOT VTI/AV VTI Ratio 0.4 LVOT Stroke Volume 77 ml LVOT CO 4.0 l/min LVOT CI 2.1 l/min/m2 Mitral Valve Name Value Normal MV Regurgitation Doppler MR Peak Gradient 160 mmHg MV Diastolic Function MV E Peak Velocity 44 cm/s MV A Peak Velocity 74 cm/s MV E/A 0.6 MV Annular TDI MV E/e' (Septal) 9.3 MV E/e' (Lateral) 4.5 MV E/e' (Average) 6.9 Tricuspid Valve Name Value Normal TV Regurgitation Doppler TR Peak Velocity 213 cm/s TR Peak Gradient 22 mmHg Estimated PAP/RSVP RA Pressure 5 mmHg <=5 PA Systolic Pressure 23 mmHg <36 RV Systolic Pressure 23 mmHg <36 TV Annular TDI TV Lateral Mariama s' Velocity 8.7 cm/s >=9.5 Aortic Valve Name Value Normal AV 2D/MM AV Area (Planimetry) 1.4 cm2 AV Doppler AV Peak Velocity 275 cm/s AV Peak Gradient 30 mmHg AV Mean Gradient 16 mmHg AV VTI 59 cm AV Area (Cont Eq VTI) 1.3 cm2 >=3.0 AV Area (Cont Eq Balaji) 1.3 cm2 AV DI (Balaji) 0.44 AV Regurgitation 2D LVOT Area 2.9 cm2 Ventricles Name Value Normal LV Dimensions 2D/MM IVS Diastolic Thickness (2D) 1.3 cm 0.6-1.0 LVID Diastole (2D) 5.6 cm 4.2-5.8 LVIW Diastolic Thickness (2D) 1.2 cm 0.6-1.0 LVID Systole (2D) 4.5 cm 2.5-4.0 LVOT Diameter 1.9 cm LV Mass (2D Cubed) 302.32 g 88.00-224.00 LV Mass Index (2D Cubed) 157 g/m2 49-115 Relative Wall Thickness (2D) 0.42 <=0.42 LV Fractional Shortening/Ejection Fraction 2D/MM LV Fractional Shortening (2D) 19 % 25-43 LV EF (2D Teichholz) 39 % LV Diastolic Volume (4C MOD) 144 ml LV EF (4C MOD) 53 % LV Diastolic Volume (2C MOD) 89 ml LV EF (2C MOD) 42 % LV Diastolic Volume (BP MOD) 117 ml 62-150 LV Diastolic Volume Index (BP MOD) 61 ml/m2 34-74 LV Systolic Volume (BP MOD) 62 ml 21-61 LV Systolic Volume Index (BP MOD) 32 ml/m2 11-31 LV EF (BP MOD) 47 % 52-72 LV Diastolic Length (4C) 8.7 cm LV Systolic Length (4C) 6.7 cm LV Stroke Volume (4C MOD) 77 ml Atria Name Value Normal LA Dimensions LA Volume (4C A-L) 75 ml RA Dimensions RA Systolic Major [place] Length (4C) 5.9 cm 2.1-2.7 RA Area (4C) 17.2 cm2 <=18.0 Report Signatures
== END 2025-01-26 12:35 | disposition home or self-care (01) ==
PROVIDERS: PCP Family Medicine; Visit Provider Internal Medicine Cardiovascular Disease
DX: J18.9 Pneumonia, unspecified organism (principal); I08.3 Combined rheumatic disorders of mitral, aortic and tricuspid valves; I35.8 Other nonrheumatic aortic valve disorders
CPT/HCPCS: 71250; 93306

== ENCOUNTER 2025-03-29 11:02 | Outpatient (CLI) | payer MEDICARE, SELFPAY ==
--- NOTE | ~2025-03-29 | XR_ITS ---
CHEST RADIOGRAPH, PA AND LATERAL CLINICAL HISTORY: Acute cough . COMPARISON: 01/15/2025 TECHNIQUE: PA and lateral views of the chest. FINDINGS Sternal wires and mediastinal clips are identified, the wires are midline and intact. The remainder of the cardiomediastinal silhouette is otherwise unremarkable. Hazy opacification of the right lateral hemidiaphragm for which a small right-sided effusion suspecte d. The remainder of the lungs are clear IMPRESSION: Right-sided pleural effusion without focal infiltrate Reviewed, dictated and finalized at location A.
--- OUTSIDE RECORDS SUMMARY | 2025-03-29 11:32 | XMS_ITS | Clinical Summary ---
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 11/10/2010 RLS (restless legs [...] on file Legal Sex Male 7:31 PM HUMAN RESOURCES OPERATIONS DIRECTOR Gender Identity Not on file Sexual Orientation Not on file Obstetrics History Last Filed Vital Signs Vital Sign Reading Time Taken Comments Blood Pressure 150/85 07/10/2016 10:58 AM HUMAN RESOURCES OPERATIONS DIRECTOR Pulse 57 07/10/2016 10:58 AM HUMAN RESOURCES OPERATIONS DIRECTOR Temperature - - Respiratory Rate - - Oxygen Saturation - - Inhaled Oxygen Concentration - - Weight 84.8 kg (187 lb) 07/10/2016 10:58 AM HUMAN RESOURCES OPERATIONS DIRECTOR Height - - Body Mass Index - [...] 10/28/2020, Additional history exists Influenza Vaccine (#1) 2025 3, 07/18/2022, 06/30/2019, Additional history exists Zoster Vaccine Completed 07/02/2019, 04/27/2019 Insurance [facility] MEDICARE ADVANTAGE [address] [id number] Care Teams Control And Recovery Special Tactics Relationship Specialty Start Date End Date Doug Martinez MD [address] [place] [address] PCP - General Family Medicine 02/18/24
--- OUTSIDE RECORDS SUMMARY | 2025-03-29 11:32 | XMS_ITS | Clinical Summary ---
Author Organization [facility] Address [address] [place] [address] Phone Care Team Providers Care Cutting And Boning Supervisor Name Role Phone Doug Martinez MD [...] 24 hour from all sources. 6 Active [place]-3 Fatty Acids (FISH OIL PO) Take 1 Tab by mouth daily. 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 11/10/2010 CHF (congestive heart [...] Comments Blood Pressure 110/70 09/26/2016 2:40 PM TEMPLATE CHECKER Pulse 52 09/26/2016 2:40 PM TEMPLATE CHECKER Temperature 35.9 C (96.6 F) 09/26/2016 2:40 PM TEMPLATE CHECKER Respiratory Rate 16 09/26/2016 2:40 PM TEMPLATE CHECKER Oxygen Saturation 97% 09/26/2016 2:40 PM TEMPLATE CHECKER Inhaled Oxygen Concentration - - Weight 86.2 kg (190 lb) 08/07/2016 1:00 PM TEMPLATE CHECKER Height 172.7 cm (5' 8) 08/07/2016 1:00 PM TEMPLATE CHECKER Body Mass Index 28.89 08/07/2016 1:00 PM TEMPLATE CHECKER Plan of Treatment Health Maintenance Due Date Last Done Comments Hepatitis C Virus (HCV) Screening 1935 TdaP Immunization 1935 Respiratory Syncytial Virus (RSV) Immunization (Adult) (1 - 1-dose 75+ series) 11/12/2010 Pneumococcal Immunization (50+ years) (2 of 2 - PPSV23) 06/13/2021 06/13/2020, 03/25/2007 SARS-COV-2 Immunization ( season) 2024 06/22/2022, 07/11/2021, 10/28/2020, Additional history exists Influenza Immunization (#1) 05/03/202508/02, 07/18/2022, 06/30/2019, Additional history exists Zoster Immunization Completed 07/02/2019, 9 Pneumococcal Immunization Combined Discontinued 06/13/2020, 03/25/2007 Hepatitis B Immunization Aged Out No longer eligible based on patient's age to complete this topic Human Papillomavirus (HPV) Immunization Aged Out No longer eligible based on patient's age to complete this topic Meningococcal Immunization (ACWY) Aged Out No longer eligible based on patient's age to complete this topic Rotavirus Immunization Aged Out No lo nger eligible based on patient's age to complete this topic Insurance MEDICARE MEDICARE C [employer] Care Teams Cutting And Boning Supervisor Relationship Specialty Start Date End Date Doug Martinez MD [address] [place] [address] PCP - General Pediatrics 11/05/23
--- OUTSIDE RECORDS SUMMARY | 2025-03-29 11:32 | XMS_ITS | Referral Summary ---
Author Organization [facility] in [place] Address [address] [place] [address] Care Team Providers Care Internet Sales Director Name Role Phone Doug Martinez MD Primary [...] (congestive heart failure) 11/10/2010 Coronary atherosclerosis of [place] coronary angie ry 11/10/2010 RLS (restless legs syndrome) 11/10/2010 Social History Tobacco Use Types Packs/Day Years Used Date Smoking Tobacco: Never Assessed Sex and Gender Information Value Date Recorded Sex Assigned at Not on file Legal Sex Male 7:31 PM AUTOMATIC TOE LASTER Gender Identity Not on file Sexual Orientation Not on file Last Filed Vital Signs Vital Sign Reading Time Taken Comments Blood Pressure 150/85 07/10/2016 10:58 AM AUTOMATIC TOE LASTER Pulse 57 07/10/2016 10:58 AM AUTOMATIC TOE LASTER Temperature - - Respiratory Rate - - Oxygen Saturation - - Inhaled Oxygen Concentration - - Weight 84.8 kg (187 lb) 07/10/2016 10:58 AM AUTOMATIC TOE LASTER Height - - Body Mass Index - - Plan of Treatment [place] [id number] Care Teams Internet Sales Director Relationship Specialty Start Date End Date Doug Martinez MD [address] [place] [address] PCP - General Family Medicine 02/18/24
== END 2025-03-29 11:03 | disposition home or self-care (01) ==
LOC: CHSLAB 11:05 → CHSIMG 11:07
PROVIDERS: PCP Family Medicine; Visit Provider Family Medicine
DX: R05.1 Acute cough (principal); J90 Pleural effusion, not elsewhere classified
CPT/HCPCS: 71046

== ENCOUNTER 2025-04-06 11:45 | Outpatient (CLI) | payer MEDICARE, SELFPAY ==
--- NOTE | ~2025-04-06 | XR_ITS ---
Clinical Indication: Fatigue, pleural effusion PA and lateral views of the chest: Comparison: 03/29/2025 Findings: Suspected minimal left pleural effusion. Right lung clear. Cardiomediastinal silhouette is within normal limits. Bones and soft tissues are unremarkable. Impression: Suspected minimal left pleural effusion. Reviewed, dictated and finalized at [facility]. Impression: Suspected minimal left pleural effusion.
[2025-04-06 11:59] LABS: Hematocrit 47.5 % (37.0-46.0); Hemoglobin 15.5 g/dL (12.4-15.3); Mean Corpuscular HGB Conc 32.6 g/dL (32-36); Mean Corpuscular Hemoglobin 30.0 pg (27.0-31.0); Mean Corpuscular Volume 91.9 fL (78.0-102.0); Platelet Count Result 247 K/mm3 (150-420); Red Blood Count 5.17 M/mm3 (4.70-6.10); White Blood Count 10.7 K/mm3 (4.8-10.8)
--- OUTSIDE RECORDS SUMMARY | 2025-04-06 12:02 | XMS_ITS | Clinical Summary ---
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 11/10/2010 RLS (restless legs [...] on file Legal Sex Male 7:31 PM FERMENTING CELLARS SUPERVISOR Gender Identity Not on file Sexual Orientation Not on file Obstetrics History Last Filed Vital Signs Vital Sign Reading Time Taken Comments Blood Pressure 150/85 07/10/2016 10:58 AM FERMENTING CELLARS SUPERVISOR Pulse 57 07/10/2016 10:58 AM FERMENTING CELLARS SUPERVISOR Temperature - - Respiratory Rate - - Oxygen Saturation - - Inhaled Oxygen Concentration - - Weight 84.8 kg (187 lb) 07/10/2016 10:58 AM FERMENTING CELLARS SUPERVISOR Height - - Body Mass Index - [...] exists Zoster Vaccine Completed 07/02/2019, 04/27/2019 Insurance [facility] MEDICARE ADVANTAGE [address] [id number] Care Teams Laundry Technician Relationship Specialty Start Date End Date Doug Martinez MD [address] [place] [address] PCP - General Family Medicine 02/18/24
--- OUTSIDE RECORDS SUMMARY | 2025-04-06 12:02 | XMS_ITS | Referral Summary ---
Author Organization [facility] in [place] Address [address] [place] [address] Care Team Providers Care Food Technologist Name Role Phone Doug Martinez MD [...] (congestive heart failure) 11/10/2010 Coronary atherosclerosis of [place] coronary angie ry 11/10/2010 RLS (restless legs syndrome) 11/10/2010 Social History Tobacco Use Types Packs/Day Years Used Date Smoking Tobacco: Never Assessed Sex and Gender Information Value Date Recorded Sex Assigned at Not on file Legal Sex Male 7:31 PM INTERIOR DESIGN INSTRUCTOR Gender Identity Not on file Sexual Orientation Not on file Last Filed Vital Signs Vital Sign Reading Time Taken Comments Blood Pressure 150/85 07/10/2016 10:58 AM INTERIOR DESIGN INSTRUCTOR Pulse 57 07/10/2016 10:58 AM INTERIOR DESIGN INSTRUCTOR Temperature - - Respiratory Rate - - Oxygen Saturation - - Inhaled Oxygen Concentration - - Weight 84.8 kg (187 lb) 07/10/2016 10:58 AM INTERIOR DESIGN INSTRUCTOR Height - - Body Mass Index - - Plan of Treatment Not on file Insurance Care Teams Food Technologist Relationship Specialty Start Date End Date Doug Martinez MD [address] [place] [address] PCP - General Family Medicine 02/18/24
--- OUTSIDE RECORDS SUMMARY | 2025-04-06 12:02 | XMS_ITS | Clinical Summary ---
Author Organization [facility] Address [address] [place] [address] Phone Care Team Providers Care Gauntlet Pairer Name Role Phone Doug Martinez MD Primary [...] 24 hour from all sources. 6 Active [place]-3 Fatty Acids (FISH OIL PO) Take 1 Tab by mouth daily. 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 11/10/2010 CHF (congestive heart [...] Comments Blood Pressure 110/70 09/26/2016 2:40 PM SALES AGENT [employer] Pulse 52 09/26/2016 2:40 PM SALES AGENT [employer] Temperature 35.9 C (96.6 F) 09/26/2016 2:40 PM SALES AGENT [employer] Respiratory Rate 16 09/26/2016 2:40 PM SALES AGENT [employer] Oxygen Saturation 97% 09/26/2016 2:40 PM SALES AGENT [employer] Inhaled Oxygen Concentration - - Weight 86.2 kg (190 lb) 08/07/2016 1:00 PM SALES AGENT [employer] Height 172.7 cm (5' 8) 08/07/2016 1:00 PM SALES AGENT [employer] Body Mass Index 28.89 08/07/2016 1:00 PM SALES AGENT [employer] Plan of Treatment Health Maintenance Due Date Last Done Comments Hepatitis C Virus (HCV) Screening 1935 TdaP Immunization 1935 Respiratory Syncytial Virus (RSV) Immunization (Adult) (1 - 1-dose 75+ series) 11/12/2010 Pneumococcal Immunization (50+ years) (2 of 2 - PCV20 or PCV21) 06/13/2021 06/13/2020, 03/25/2007 SARS-COV-2 Immunization ( season) [...] complete this topic Insurance MEDICARE MEDICARE C [facility] Care Teams Gauntlet Pairer Relationship Specialty Start Date End Date Doug Martinez MD [address] [place] [address] PCP - General Pediatrics 11/05/23
[2025-04-06 12:32] LABS: Alanine Aminotransferase 32 U/L (6-50); Albumin Level 4.1 g/dL (3.5-5.1); Alkaline Phosphatase 114 U/L (38-126); Anion Gap 3 mmol/L (4-12); Aspartate Amino Transferase 37 U/L (17-59); Bilirubin,Total 1.0 mg/dL (0.2-1.3); Blood Urea Nitrogen 23 mg/dL (9-20); Calcium 9.6 mg/dL (8.4-10.2); Carbon Dioxide 27 mmol/L (22-30); Chloride 101 mmol/L (98-107); Estimated Glomerular Filt Rate > 60; Glucose 103 mg/dL (65-110); Osmolality Calculated 275 mOsm/kg (285-295); Potassium 4.9 mmol/L (3.4-5.0); Sodium 131 mmol/L (137-145); Total Protein 5.9 g/dL (6.3-8.2)
== END 2025-04-06 11:46 | disposition home or self-care (01) ==
LOC: CHSLAB 11:47
PROVIDERS: PCP Family Medicine; Visit Provider Nurse Practitioner Family
DX: J90 Pleural effusion, not elsewhere classified (principal); R53.83 Other fatigue; R91.8 Other nonspecific abnormal finding of lung field
CPT/HCPCS: 36415; 71046; 80053; 85027

== ENCOUNTER 2025-04-19 10:01 | Outpatient (CLI) | payer MEDICARE, SELFPAY ==
--- NOTE | ~2025-04-19 | XR_ITS ---
Clinical Indication: Pneumonia PA and lateral views of the chest: Comparison: 04/06/2025 Findings: There is mild hazy bibasilar airspace disease. Cardiomediastinal silhouette is within norm al limits. Bones and soft tissues are unremarkable. Impression: Mild bibasilar pulmonary edema/atelectasis versus pneumonia. Correlate clinically. Reviewed, dictated and finalized at location . Impression: Mild bibasilar pulmonary edema/atelectasis versus pneumonia. Correlate clinical ly.
--- OUTSIDE RECORDS SUMMARY | 2025-04-19 11:00 | XMS_ITS | Clinical Summary ---
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 11/10/2010 RLS (restless legs [...] on file Legal Sex Male 7:31 PM PACS SPECIALIST Gender Identity Not on file Sexual Orientation Not on file Obstetrics History Last Filed Vital Signs Vital Sign Reading Time Taken Comments Blood Pressure 150/85 07/10/2016 10:58 AM PACS SPECIALIST Pulse 57 07/10/2016 10:58 AM PACS SPECIALIST Temperature - - Respiratory Rate - - Oxygen Saturation - - Inhaled Oxygen Concentration - - Weight 84.8 kg (187 lb) 07/10/2016 10:58 AM PACS SPECIALIST Height - - Body Mass Index - - Plan of Treatment Health Maintenance Due Date Last Done Comments Depression Screening 1935 Fall Risk Assessment 1935 DTaP/Tdap/Td Vaccine (1 - Tdap) [birth year]12/1946 Hepatitis B Screening 11/12/1953 Well Visit 65+ 11/12/2000 Pneumococcal vaccine 65+ (2 of 2 - PCV20 or PCV21) 06/13/2021 06/13/2020, 03/25/2007 Covid-19 Vaccine ( - 2023-2 5 season) 2024 06/22/2022, 07/11/2021, 10/28/2020, Additional history exists Influenza Vaccine (#1) 2025 3, 07/18/2022, 06/30/2019, Additional history exists Zoster Vaccine Completed 07/02/2019, 04/27/2019 Insurance [facility] MEDICARE ADVANTAGE Care Teams Pleat Taper Relationship Specialty Start Date End Date Doug Martinez MD [address] [place] [address] PCP - General Family Medicine 02/18/24
--- OUTSIDE RECORDS SUMMARY | 2025-04-19 11:00 | XMS_ITS | Clinical Summary ---
Author Organization [facility] Address [address] [place] [address] Phone Care Team Providers Care Warehouseman Name Role Phone Doug Martinez MD Primary Care Provider [phone] Allergies Active Allergy Reactions Criticality Noted Date [...] 24 hour from all sources. 6 Active [place]-3 Fatty Acids (FISH OIL PO) Take 1 Tab by mouth daily. Active Active Problems Problem Noted Date Diagnosed Date Low back pain 12/24/2016 Lumbar spinal stenosis 01/18/2016 Coronary atherosclerosis of [place] coronary angie ry 11/10/2010 CHF (congestive heart [...] Comments Blood Pressure 110/70 09/26/2016 2:40 PM BUSINESS PROCESS ARCHITECT Pulse 52 09/26/2016 2:40 PM BUSINESS PROCESS ARCHITECT Temperature 35.9 C (96.6 F) 09/26/2016 2:40 PM BUSINESS PROCESS ARCHITECT Respiratory Rate 16 09/26/2016 2:40 PM BUSINESS PROCESS ARCHITECT Oxygen Saturation 97% 09/26/2016 2:40 PM BUSINESS PROCESS ARCHITECT Inhaled Oxygen Concentration - - Weight 86.2 kg (190 lb) 08/07/2016 1:00 PM BUSINESS PROCESS ARCHITECT Height 172.7 cm (5' 8) 08/07/2016 1:00 PM BUSINESS PROCESS ARCHITECT Body Mass Index 28.89 08/07/2016 1:00 PM BUSINESS PROCESS ARCHITECT Plan of Treatment Health Maintenance Due Date [...] Insurance MEDICARE MEDICARE C [employer] Care Teams Warehouseman Relationship Specialty Start Date End Date Doug Martinez MD [address] [place] [address] PCP - General Pediatrics 11/05/23
== END 2025-04-19 10:02 | disposition home or self-care (01) ==
LOC: CHSIMG 10:02
PROVIDERS: PCP Family Medicine; Visit Provider Family Medicine
DX: J18.9 Pneumonia, unspecified organism (principal); R91.8 Other nonspecific abnormal finding of lung field
CPT/HCPCS: 71046

== ENCOUNTER 2025-05-11 10:26 | Outpatient (CLI) | payer MEDICARE, SELFPAY ==
--- NOTE | ~2025-05-11 | XR_ITS ---
EXAMINATION: XR chest 2V, 05/11/2025 10:45 CDT HISTORY: SOB, mid-sternal chest pain COMPARISON: No comparisons available. Technique: 2 views obtained. Findings: The lungs are clear, no effusion. No pneumothorax. Heart is normal size. Mediastinal and hilar contours are within normal limits. Poststernotomy Impression: No acute cardiopulmonary abnormality. Reviewed, dictated and finalized at location A. Impression: No acute cardiopulmonary abnormality.
[2025-05-11 10:42] LABS: Hematocrit 46.8 % (37.0-46.0); Hemoglobin 15.1 g/dL (12.4-15.3); Mean Corpuscular HGB Conc 32.3 g/dL (32-36); Mean Corpuscular Hemoglobin 30.4 pg (27.0-31.0); Mean Corpuscular Volume 94.4 fL (78.0-102.0); Platelet Count Result 193 K/mm3 (150-420); Red Blood Count 4.96 M/mm3 (4.70-6.10); White Blood Count 8.2 K/mm3 (4.8-10.8)
[2025-05-11 11:04] LABS: Band Neutrophils Percent 2 % (0-6); Eosinophils Absolute Manual 0.32 K/mm3 (0.02-0.50); Eosinophils Percent Manual 4 % (1-6); Lymphocytes Absolute Manual 0.82 K/mm3 (1.1-4.5); Lymphocytes Percent Manual 10 % (18-44); Monocytes Absolute Manual 1.14 K/mm3 (0.1-0.90); Monocytes Percent Manual 14 % (3-9); Neutrophils Absolute Manual 5.90 K/mm3 (1.3-6.7); Neutrophils Percent Manual 70 % (46-73); Total Cells Counted 100
[2025-05-11 11:14] LABS: Alanine Aminotransferase 24 U/L (6-50); Albumin Level 4.1 g/dL (3.5-5.1); Alkaline Phosphatase 101 U/L (38-126); Anion Gap 8 mmol/L (4-12); Aspartate Amino Transferase 38 U/L (17-59); Bilirubin,Total 1.0 mg/dL (0.2-1.3); Blood Urea Nitrogen 14 mg/dL (9-20); Calcium 9.7 mg/dL (8.4-10.2); Carbon Dioxide 27 mmol/L (22-30); Chloride 103 mmol/L (98-107); Estimated Glomerular Filt Rate > 60; Glucose 82 mg/dL (65-110); Osmolality Calculated 285 mOsm/kg (285-295); Potassium 4.7 mmol/L (3.4-5.0); Sodium 138 mmol/L (137-145); Total Protein 5.9 g/dL (6.3-8.2)
--- OUTSIDE RECORDS SUMMARY | 2025-05-11 12:07 | XMS_ITS | Clinical Summary ---
Author Organization [facility] Address [address] [place] [address] Phone Care Team Providers Care Signals Analyst Name Role Phone Doug Martinez MD Primary [...] 24 hour from all sources. 6 Active [place]-3 Fatty Acids (FISH OIL PO) Take 1 Tab by mouth daily. 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 11/10/2010 CHF (congestive heart [...] Comments Blood Pressure 110/70 09/26/2016 2:40 PM AREA DIRECTOR Pulse 52 09/26/2016 2:40 PM AREA DIRECTOR Temperature 35.9 C (96.6 F) 09/26/2016 2:40 PM AREA DIRECTOR Respiratory Rate 16 09/26/2016 2:40 PM AREA DIRECTOR Oxygen Saturation 97% 09/26/2016 2:40 PM AREA DIRECTOR Inhaled Oxygen Concentration - - Weight 86.2 kg (190 lb) 08/07/2016 1:00 PM AREA DIRECTOR Height 172.7 cm (5' 8) 08/07/2016 1:00 PM AREA DIRECTOR Body Mass Index 28.89 08/07/2016 1:00 PM AREA DIRECTOR Plan of Treatment Health Maintenance Due Date Last Done Comments Hepatitis C Virus (HCV) Screening 1935 TdaP Immunization 1935 Respiratory Syncytial Virus (RSV) Immunization (Adult) (1 - 1-dose 75+ series) 11/12/2010 Pneumococcal Immunization (50+ years) (2 of 2 - PCV20 or PCV21) 06/13/2021 06/13/2020, 03/25/2007 Influenza Immunization (#1) 05/03/202508/02, 07/18/2022, 06/30/2019, Additional history exists SARS-COV-2 Immunization (2024- season) 2025 06/22/2022, 07/11/2021, 10/28/2020, Additional history exists Zoster [...] Insurance MEDICARE MEDICARE C [employer] Care Teams Signals Analyst Relationship Specialty Start Date End Date Doug Martinez MD [address] [place] [address] PCP - General Pediatrics 11/05/23
--- OUTSIDE RECORDS SUMMARY | 2025-05-11 12:07 | XMS_ITS | Clinical Summary ---
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 11/10/2010 RLS (restless legs [...] on file Legal Sex Male 7:31 PM CRUSHING FOREMAN Gender Identity Not on file Sexual Orientation Not on file Obstetrics History Last Filed Vital Signs Vital Sign Reading Time Taken Comments Blood Pressure 150/85 07/10/2016 10:58 AM CRUSHING FOREMAN Pulse 57 07/10/2016 10:58 AM CRUSHING FOREMAN Temperature - - Respiratory Rate - - Oxygen Saturation - - Inhaled Oxygen Concentration - - Weight 84.8 kg (187 lb) 07/10/2016 10:58 AM CRUSHING FOREMAN Height - - Body Mass Index - [...] exists Zoster Vaccine Completed 07/02/2019, 04/27/2019 Insurance [facility]IC[facility] ADVANT[facility] Address: [facility] [address] [place] [address] Care Teams Motor Installer Relationship Specialty Start Date End Date Doug Martinez MD [address] [place] [address] PCP - General Family Medicine 02/18/24
--- OUTSIDE RECORDS SUMMARY | 2025-05-11 12:07 | XMS_ITS | Clinical Summary ---
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 Not on file No [...] 12:06 PM CDT Height 170.2 cm (5' 7) 06/26/2021 12:0 6 PM CDT Body Mass [...] LIPID PANEL EXTENDED TIMED 08/22/2017 5:11 AM LITHOGRAPHED PLATE INSPECTOR from Last 3 Months or Most Recently Relevant to Health Maintenance Results * (ABNORMAL) LIPID PANEL EXTENDED (08/22/2017 5:11 AM LITHOGRAPHED PLATE INSPECTOR) HDL 33(L) >39 MG/DL 08/22/2017 8:00 AM [facility] Comment:LOW: <40 LIPOPROTEIN (A) 90(H) 0 - 30 MG/DL 08/22/2017 8:00 AM [facility] DIRECT LDL 72 0 - 129 MG/DL 08/22/2017 8:00 AM [facility] Comment:<100 OPTIMAL CHOLESTEROL 125 0 - 200 MG/DL 08/22/2017 8:00 AM [facility] Comment:DESIRABLE: <200 TRIGLYCERIDES 97 0 - 149 MG/DL 08/22/2017 8:00 AM [facility] Comment:<150 NORMAL VLDL CALCULATION 20 MG/DL 08/22/20 17 8:00 AM [facility] CHOL/HDL RATIO 3.8 08/22/2017 8:00 AM [facility] LDL/HDL 2.2 08/22/2017 8:00 AM [facility] APOLIPOPROTEIN B 66 54 - 163 MG/DL 08/22/2017 8:00 AM [facility] NON HDL CHOLESTEROL 92 MG/DL 08/22/2017 8:00 AM [facility] HOMOCYSTEINE (U) 10 MCMOL/L 08/22/20 17 7:17 AM [facility] HOMOCYSTINE NORMALS NORMAL LEVEL IS LESS THAN OR EQUAL TO 9 08/22/2017 1:05 AM [facility] Comment: MILD IS 10 TO 15 UMOL/L MODERATE IS 16 TO 30 UMOL/L MODERATE TO SEVERE IS 31 TO 100 UMOL/L SEVERE IS GREATER THAN 100 UMOL/L PLASMA SPECIMEN / Unknown 08/22/2017 5:11 AM LITHOGRAPHED PLATE INSPECTOR 08/22/2017 6:23 AM [facility] us Generic Conversion Md [facility] Final R esult [facility] [address] [place] [address], [id number] from Last 3 Months or Most Recently Relevant to Health Maintenance Insurance [facility] Advance Directives Documents on File Type Date Recorded Patient Electronic Scale Tester Expl anation Advance Directives and Living Will 09/27/2017 LIVING WILL Advance Directives and Living Will 08/21/2017 LIVING WILL * Full Code (Latest Code Status on File) Date Activated Date Inactivated Comments 06/26/2021 2:36 PM 06/26/2021 7:39 PM Care Teams Collating Machine Operator Relationship Specialty Start Date End Date Doug Martinez MD [address] [place] [address] PCP - General FAMILY PRACTICE 02/15/20 Ambulatory, Nonhospital Cred Provider, APNP Nurse Practitioner INTERNAL MEDICINE 06/14/16 Hoang Crowe MD [address] [place] [address] Surgeon SURGERY 06/27/21 Paz Mcgee MD [address] [place] [address] Consulting Physician CARDIOVASCULAR DISEASE 02/06/22
== END 2025-05-11 10:27 | disposition home or self-care (01) ==
LOC: CHSLAB 10:28
PROVIDERS: PCP Family Medicine; Visit Provider Family Medicine
DX: J18.9 Pneumonia, unspecified organism (principal); I10 Essential (primary) hypertension
CPT/HCPCS: 36415; 71046; 80053; 85025; 85652

== ENCOUNTER 2025-05-14 10:25 | Outpatient (CLI) | payer MEDICARE, SELFPAY ==
[2025-05-14 10:37] LABS: Add Urine Microscopic? NO; Appearance Urine Clear (Clear); Glucose Urine UA Negative (Negative); Leukocyte Esterase Ur Negative (Negative); Nitrate Urine Negative (Negative); Specific Grav Ur 1.010 (1.010-1.020)
--- OUTSIDE RECORDS SUMMARY | 2025-05-14 11:14 | XMS_ITS | Clinical Summary ---
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 11/10/2010 RLS (restless legs [...] on file Legal Sex Male 7:31 PM ROOFER VINYL COATING Gender Identity Not on file Sexual Orientation Not on file Obstetrics History Last Filed Vital Signs Vital Sign Reading Time Taken Comments Blood Pressure 150/85 07/10/2016 10:58 AM ROOFER VINYL COATING Pulse 57 07/10/2016 10:58 AM ROOFER VINYL COATING Temperature - - Respiratory Rate - - Oxygen Saturation - - Inhaled Oxygen Concentration - - Weight 84.8 kg (187 lb) 07/10/2016 10:58 AM ROOFER VINYL COATING Height - - Body Mass Index - - Plan of Treatment Health Maintenance Due Date Last Done Comments Depression Screening 1935 Fall Risk Assessment 1935 DTaP/Tdap/Td Vaccine (1 - Tdap) 11/12/1946 Hepatitis B Screening 11/12/1953 Well Visit 65+ 11/12/2000 Pneumococcal vaccine 65+ (2 of 2 - PCV20 or PCV21) 06/13/2021 06/13/2020, 03/25/2007 Covid-19 Vaccine (5 - 2024-2 6 season) 2025 06/22/2022, 07/11/2021, 10/28/2020, Additional history exists Influenza Vaccine (#1) 2025 3, 07/18/2022, 06/30/2019, Additional history exists Zoster Vaccine Completed 07/02/2019, 04/27/2019 Insurance [facility] MEDICARE [facility] Address: [facility] [address] [place] [address] Care Teams Clicking Machine Operator Relationship Specialty Start Date End Date Doug Martinez MD [address] [place] [address] PCP - General Family Medicine 02/18/24
--- OUTSIDE RECORDS SUMMARY | 2025-05-14 11:15 | XMS_ITS | Clinical Summary ---
Author Organization [facility] Address [address] [place] [address] Phone Care Team Providers Care Soap Drier Operator Name Role Phone Doug Martinez [...] 24 hour from all sources. 6 Active [place]-3 Fatty Acids (FISH OIL PO) Take 1 Tab by mouth daily. Active Active Problems Problem Noted Date Diagnosed Date Low back pain 12/24/2016 Lumbar spinal stenosis 01/18/2016 Coronary atherosclerosis of [place] coronary angie ry 11/10/2010 CHF (congestive heart [...] Comments Blood Pressure 110/70 09/26/2016 2:40 PM INSULATOR TECHNICIAN Pulse 52 09/26/2016 2:40 PM INSULATOR TECHNICIAN Temperature 35.9 C (96.6 F) 09/26/2016 2:40 PM INSULATOR TECHNICIAN Respiratory Rate 16 09/26/2016 2:40 PM INSULATOR TECHNICIAN Oxygen Saturation 97% 09/26/2016 2:40 PM INSULATOR TECHNICIAN Inhaled Oxygen Concentration - - Weight 86.2 kg (190 lb) 08/07/2016 1:00 PM INSULATOR TECHNICIAN Height 172.7 cm (5' 8) 08/07/2016 1:00 PM INSULATOR TECHNICIAN Body Mass Index 28.89 08/07/2016 1:00 PM INSULATOR TECHNICIAN Plan of Treatment Health Maintenance Due Date [...] Insurance MEDICARE MEDICARE C [employer] Care Teams Soap Drier Operator Relationship Specialty Start Date End Date Doug Martinez MD [address] [place] [address] PCP - General Pediatrics 11/05/23
--- OUTSIDE RECORDS SUMMARY | 2025-05-14 11:15 | XMS_ITS | Clinical Summary ---
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 Not on file No [...] 08/08/2020 06/13/2020, 03/25/2007 COVID-19 Vaccine (3 - 2024-2 6 season) 2025 10/28/2020, 09/30/2020 Zoster Vaccines Completed 07/02/2019, 04/27/2019 [...] LIPID PANEL EXTENDED TIMED 08/22/2017 5:11 AM NATUROPATHIC ONCOLOGY PROVIDER from Last 3 Months or Most Recently Relevant to Health Maintenance Results * (ABNORMAL) LIPID PANEL EXTENDED (08/22/2017 5:11 AM NATUROPATHIC ONCOLOGY PROVIDER) HDL 33(L) >39 MG/DL 08/22/2017 8:00 AM [facility] Comment:LOW: <40 LIPOPROTEIN (A) 90(H) 0 - 30 MG/DL 08/22/2017 8:00 AM [facility] DIRECT LDL 72 0 - 129 MG/DL 08/22/2017 8:00 AM [facility] Comment:<100 OPTIMAL CHOLESTEROL 125 0 - 200 MG/DL 08/22/2017 8:00 AM [facility] Comment:DESIRABLE: <200 TRIGLYCERIDES 97 0 - 149 MG/DL 08/22/2017 8:00 AM [facility] Comment:<150 NORMAL VLDL CALCULATION 20 MG/DL 08/22/20 17 8:00 AM [facility] CHOL/HDL RATIO 3.8 08/22/2017 8:00 AM [facility] LDL/HDL 2.2 08/22/2017 8:00 AM [facility] APOLIPOPROTEIN B 66 54 - 163 MG/DL 08/22/2017 8:00 AM [facility] NON HDL CHOLESTEROL 92 MG/DL 08/22/2017 8:00 AM [facility] HOMOCYSTEINE (U) 10 MCMOL/L 08/22/20 17 7:17 AM [facility] HOMOCYSTINE NORMALS NORMAL LEVEL IS LESS THAN OR EQUAL TO 9 08/22/2017 1:05 AM [facility] Comment: MILD IS 10 TO 15 UMOL/L MODERATE IS 16 TO 30 UMOL/L MODERATE TO SEVERE IS 31 TO 100 UMOL/L SEVERE IS GREATER THAN 100 UMOL/L PLASMA SPECIMEN / Unknown 08/22/2017 5:11 AM NATUROPATHIC ONCOLOGY PROVIDER 08/22/2017 6:23 AM NATUROPATHIC ONCOLOGY PROVIDER us Generic Conversion Md [facility] Final R esult [facility] [address] [place] [address], [id number] from Last 3 Months or Most Recently Relevant to Health Maintenance Insurance [facility] Advance Directives Documents on File Type Date Recorded Patient Sample Tester Grinder Expl anation Advance Directives and Living Will 09/27/2017 LIVING WILL Advance Directives and Living Will 08/21/2017 LIVING WILL * Full Code (Latest Code Status on File) Date Activated Date Inactivated Comments 06/26/2021 2:36 PM 06/26/2021 7:39 PM Care Teams Drafter Electronic Relationship Specialty Start Date End Date Doug Martinez MD [address] [place] [address] PCP - General FAMILY PRACTICE 02/15/20 Ambulatory, Nonhospital Cred Provider, APNP Nurse Practitioner INTERNAL MEDICINE 06/14/16 Hoang Crowe MD [address] [place] [address] Surgeon SURGERY 06/27/21 Paz Mcgee MD [address] [place] [address] Consulting Physician CARDIOVASCULAR DISEASE 02/06/22
== END 2025-05-14 10:26 | disposition home or self-care (01) ==
PROVIDERS: PCP Family Medicine; Visit Provider Family Medicine
DX: R53.83 Other fatigue (principal)
CPT/HCPCS: 81003

== ENCOUNTER 2025-06-08 12:17 | Outpatient (CLI) | payer MEDICARE, SELFPAY ==
--- NOTE | ~2025-06-08 | XR_ITS ---
EXAMINATION: XR hip RT 2V w AP pelvis, 06/08/2025 15:00 CDT HISTORY: PAIN IN RIGHT HIP COMPARISON: No comparisons available. Findings: No acute fracture or malalignment. Moderate degenerative changes Soft tissues unremarkable. Impression: No acute fracture or malalignment. Reviewed, dictated and finalized at location P. Impression: No acute fracture or malalignment.
--- NOTE | 2025-06-08 12:24 | ECHO_ITS ---
Patient Info Name: Beau Freeman Age: 89 years : 1935 Gender: Male Ht: 67 in Wt: 170 lbs BSA: 1.92 m2 HR: 66 bpm BP: 132 / 70 mmHg Technical Quality: Good Exam Date: 06/08/2025 12:31 PM Patient Status: O Admit Date: 06/08/2025 Exam Type: CA echo doppler color flow Complete two-dimensional, color flow and Doppler transthoracic echocardiogram is performed. Health And Nutrition Specialist: Beth Kamara Attending Provider: Doug Martinez MD Summary 1. Complete two-dimensional, color flow and Doppler transthoracic echocardiogram is performed. 2. Left ventricular chamber dimension is mildly enlarged. 3. Basal to apical anteroseptum and septum are hypokinetic. 4. Left ventricular systolic function is preserved, estimated at 50-55. 5. There is mild concentric increased left ventricular wall thickness. 6. The left ventricular diastolic function is grade I diastolic dysfunction. 7. E/e' 6 is not elevated. 8. Right ventricular systolic function is moderately reduced and with abnormal TAPSE 1.1 cm. 9. Left atrial chamber dimension is moderately enlarged. 10. 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 11. There is mild aortic valve stenosis with a peak velocity of 212 cm/s, mean gradient of 11 mmHg, and aortic valve area of 2.2 cm2. 12. There is moderate aortic valve regurgitation. 13. There is mild mitral valve regurgitation. 14. There is mild tricuspid valve regurgitation. 15. No pulmonary hypertension, estimated pulmonary arterial systolic pressure is 29 mmHg. Left Ventricle Basal to apical anteroseptum and septum are hypokinetic. Left ventricular chamber dimension is mildly enlarged. Left ventricular systolic function is preserved, estimated at 50-55. There is mild concentric increased left ventricular wall thickness. The left ventricular diastolic function is grade I diastolic dysfunction. E/e' 6 is not elevated. Right Ventricle Right ventricular chamber dimension is normal. Right ventricular systolic function is moderately reduced and with abnormal TAPSE 1.1 cm. Left Atria Left atrial chamber dimension is moderately enlarged. Right Atria Right atrial chamber dimension is normal. Aortic Valve The aortic valve is trileaflet. 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 There is mild aortic valve stenosis with a peak velocity of 212 cm/s, mean gradient of 11 mmHg, and aortic valve area of 2.2 cm2. There is moderate aortic valve regurgitation. Pulmonic Valve There is no pulmonic regurgitation. Mitral Valve There is no mitral valve stenosis. There is mild mitral valve regurgitation. Tricuspid Valve There is mild tricuspid valve regurgitation. No pulmonary hypertension, estimated pulmonary arterial systolic pressure is 29 mmHg. Pericardium/Pleural There is no pericardial effusion. Inferior Vena Cava Normal inferior vena cava with >50% collapse upon inspiration consistent with normal right atrial pressure, 5 mmHg. Aorta The aortic root size at the sinus of Valsalva is normal. Left Ventricular Outflow Tract Name Value Normal LVOT 2D LVOT Diameter 2.0 cm LVOT Doppler LVOT Peak Velocity 137 cm/s LVOT Peak Gradient 7 mmHg LVOT Mean Gradient 4 mmHg LVOT VTI 31 cm LVOT VTI/AV VTI Ratio 0.7 LVOT Stroke Volume 100 ml LVOT CO 6.9 l/min LVOT CI 3.6 l/min/m2 Pulmonic Valve Name Value Normal RVOT Doppler RVOT Peak Velocity 77 cm/s RVOT Peak Gradient 2 mmHg PV Doppler PV Peak Velocity 123 cm/s PV Peak Gradient 6 mmHg Mitral Valve Name Value Normal MV Diastolic Function MV E Peak Velocity 37 cm/s MV A Peak Velocity 86 cm/s MV E/A 0.4 MV Decel Time (PW) 255 ms MV Annular TDI MV E/e' (Septal) 8.9 MV E/e' (Lateral) 5.2 MV E/e' (Average) 7.0 Tricuspid Valve Name Value Normal TV Regurgitation Doppler TR Peak Velocity 247 cm/s TR Peak Gradient 24 mmHg Estimated PAP/RSVP RA Pressure 5 mmHg <=5 PA Systolic Pressure 29 mmHg <36 RV Systolic Pressure 29 mmHg <36 Aortic Valve Name Value Normal AV Doppler AV Peak Velocity 212 cm/s AV Peak Gradient 18 mmHg AV Mean Gradient 11 mmHg AV VTI 46 cm AV Area (Cont Eq VTI) 2.2 cm2 >=3.0 AV Area (Cont Eq Balaji) 2.1 cm2 AV DI (Balaji) 0.64 AV Regurgitation 2D LVOT Area 3.2 cm2 Ventricles Name Value Normal LV Dimensions 2D/MM IVS Diastolic Thickness (2D) 1.3 cm 0.6-1.0 LVID Diastole (2D) 6.2 cm 4.2-5.8 LVIW Diastolic Thickness (2D) 0.9 cm 0.6-1.0 LVID Systole (2D) 4.6 cm 2.5-4.0 LVOT Diameter 2.0 cm LV Mass (2D Cubed) 298.27 g 88.00-224.00 LV Mass Index (2D Cubed) 155 g/m2 49-115 Relative Wall Thickness (2D) 0.29 <=0.42 LV Fractional Shortening/Ejection Fraction 2D/MM LV Fractional Shortening (2D) 25 % 25-43 LV EF (2D Teichholz) 49 % LV Diastolic Volume (4C MOD) 151 ml LV EF (4C MOD) 54 % LV Diastolic Volume (2C MOD) 81 ml LV EF (2C MOD) 46 % LV Diastolic Volume (BP MOD) 114 ml 62-150 LV Diastolic Volume Index (BP MOD) 59 ml/m2 34-74 LV Systolic Volume (BP MOD) 55 ml 21-61 LV Systolic Volume Index (BP MOD) 29 ml/m2 11-31 LV EF (BP MOD) 52 % 52-72 LV Diastolic Length (4C) 8.4 cm LV Systolic Length (4C) 7.2 cm LV Stroke Volume (4C MOD) 82 ml Atria Name Value Normal LA Dimensions LA Volume (4C A-L) 73 ml LA Volume (BP A-L) 69 ml RA Dimensions RA Systolic Major Reading Length (4C) 5.9 cm 2.1-2.7 RA Area (4C) 13.2 cm2 <=18.0 Report Signatures
== END 2025-06-08 12:18 | disposition home or self-care (01) ==
PROVIDERS: PCP Family Medicine; Visit Provider Family Medicine
DX: I10 Essential (primary) hypertension (principal); M25.551 Pain in right hip; I08.3 Combined rheumatic disorders of mitral, aortic and tricuspid valves; I35.8 Other nonrheumatic aortic valve disorders
CPT/HCPCS: 73502; 93306

== ENCOUNTER 2025-08-16 13:40 | Outpatient (CLI) | payer MEDICARE, SELFPAY ==
--- NOTE | ~2025-08-16 | XR_ITS ---
EXAMINATION: XR shoulder RT min 2V, 08/16/2025 13:58 CAVITY PUMP OPERATOR HISTORY: RT worse, NKI, Limited ROM, injections only help for so long COMPARISON: No comparisons available. Findings: No acute fracture or malalignment. No significant degenerative changes. Soft tissues unremarkable. Impression: No acute fracture or malalignment. Reviewed, dictated and finalized at location P. TY PUMP OPERATOR Impression: No acute fracture or malalignment.
--- NOTE | ~2025-08-16 | XR_ITS ---
EXAMINATION: XR shoulder LT min 2V, 08/16/2025 13:58 BOTANY PROFESSOR HISTORY: RT worse, NKI, Limited ROM, injections only help for so long COMPARISON: No comparisons available. Findings: No acute fracture or malalignment. Moderate degenerative changes Soft tissues unremarkable. Impression: No acute fracture or malalignment. Reviewed, dictated and finalized at location P. [place] PROFESSOR Impression: No acute fracture or malalignment.
== END 2025-08-16 13:41 | disposition home or self-care (01) ==
LOC: CHSIMG 13:41
PROVIDERS: PCP Family Medicine; Visit Provider Family Medicine
DX: M25.519 Pain in unspecified shoulder (principal)
CPT/HCPCS: 73030